=== PATIENT | female | born 1965 | race Caucasian/White ===

== ENCOUNTER 2017-09-16 05:58 | Day surgery (SDC) | payer OTHER ==
[2017-09-15 12:51] VITALS: BMI 28.8
[2017-09-16] MEDS ORDERED: Fentanyl 100 MCG/2 ML VIAL ONE ×5 (06:33→12:03)
[2017-09-16] MEDS ORDERED: Midazolam HCl 2 mg/2 ml Vial ONE ×2 (06:33→07:39)
[2017-09-16] MEDS ORDERED: Promethazine HCl 25 MG/ML VIAL ONE (06:34)
[2017-09-16] MEDS ORDERED: Bupivacaine/Epinephrine 0.25% 30 ML VIAL ONE (06:42)
[2017-09-16] MEDS ORDERED: Ondansetron HCl/PF 4 MG/2 ML Vial ONE (06:49)
[2017-09-16] MEDS ORDERED: PROPOFOL 40 ML ONE (06:49)
[2017-09-16] MEDS ORDERED: CEFAZOLIN/Water 2 GM/20 ML SYRINGE ONE (07:01)
--- NOTE | 2017-09-16 10:27 | OP ---
PREOPERATIVE DIAGNOSIS: Bilateral inguinal hernia. SURGEON: Rufus Vivas M.D. PROCEDURE PERFORMED: Laparoscopic robotic-assisted bilateral inguinal hernia repair with mesh. INDICATIONS: This is a 52-year-old female, who had a CT scan for upper abdominal pain was noted to h ave bilateral inguinal hernias. She developed pain and an increased swelling in her right groin, whi ch was reduced, but then it recurred. She kept having severe pain and difficulty in reducing this he rnia. FINDINGS: Bilateral inguinal hernias. PROCEDURE IN DETAIL: After informed consent was obtained, the patient was taken to the operating truong m and given general endotracheal anesthesia. She was placed in the supine position. Her abdomen was prepped and draped in usual fashion. Local anesthesia infiltrated subcutaneously and deep and a 12- mm incision was performed just above the umbilicus. The fascia grasped and incised. Digital palpati on revealed no local adhesions. A blunt 10-12-mm mm trocar inserted. Pneumoperitoneum was created t o a pressure of 15 mmHg. A 30-degree laparoscope inserted under direct vision. Two 8 mm ports were placed bilateral just lateral to the rectus muscle at the level of the first incision. Then, the pat ient placed in Trendelenburg position and the robot was docked and I went to the console, started on the right. The median umbilical ligament was divided and then the peritoneum incised sharply. A sub peritoneal plane was developed using blunt and sharp dissection. The hernia was reduced. She actual ly had both an indirect and a direct inguinal hernia. Then the left side was approached. Again, the peritoneum was opened from median umbilical ligament laterally and again she had both a direct and i ndirect hernia that was reduced. On the right side, a large contour mesh was inserted and placed in its pocket, and on the left, a medium contour mesh was inserted and placed in its pocket. A 2-0 silk sutures used to secure the mesh to the pubic tubercle medially on both sides and then laterally on b oth sides. The needles were removed. Then, after hemostasis was assured, the peritoneum was closed using a running 3-0 V-Loc from lateral to medial bilateral. The repairs inspected. There was no ble eding. No evidence of complication. The abdomen decompressed. The fascia closed with interrupted 2 -0 Vicryl suture. Skin closed with interrupted 4-0 Rapide. Dermabond applied. The patient tolerate d the procedure well and was transferred to recovery in good condition. Sponge and needle count veri fied correct x2.
[2017-09-16] MEDS ORDERED: HYDROcodone/Acetaminophen 5/325 mg Tablet ONE (12:22)
== END 2017-09-16 14:30 | disposition home or self-care (01) ==
LOC: SDC 05:58
PROVIDERS: ATTEND Surgery
PROC: 0YUA4JZ Supplement Bilateral Inguinal Region with Synthetic Substitute, Percutaneous Endoscopic Approach (ICD-10-PCS; principal; 2017-09-16)
DX: K40.20 Bilateral inguinal hernia, without obstruction or gangrene, not specified as recurrent (principal); Z88.1 Allergy status to other antibiotic agents; Z88.8 Allergy status to other drugs, medicaments and biological substances; Z91.048 Other nonmedicinal substance allergy status
CPT/HCPCS: C1781; J2250; J2405; J2550; J2704; J3010

== ENCOUNTER 2018-01-11 08:08 | Outpatient (CLI) | payer OTHER | END 2018-01-11 08:09 | disposition home or self-care (01) | LOC: BICCT 08:08 | PROVIDERS: ATTEND Internal Medicine | DX: R10.33 Periumbilical pain (principal); R14.0 Abdominal distension (gaseous); R93.3 Abnormal findings on diagnostic imaging of other parts of digestive tract; K31.89 Other diseases of stomach and duodenum | CPT/HCPCS: 74176 ==

== ENCOUNTER 2018-02-28 09:11 | Outpatient (CLI) | payer OTHER ==
[2018-02-28] MEDS ORDERED: Gadobenate Dimeglumine 529 MG/1 ML (20ML VIAL) ONE (10:10)
--- NOTE | 2018-02-28 13:25 | MRI ---
MRI ABDOMEN WITH AND WITHOUT IV CONTRAST: INDICATIONS: History of central abdominal pain with an abnormality seen involving the pancreas on prior CT evaluat ion. COMPARISON: CT evaluation dated 09/13/2017, from [facility], and a CT of the abdomen and pelvi s without contrast, dated 01/11/2018, from [facility]. TECHNIQUE: Multiplanar, multisequence MR images were obtained of the abdomen, with and without contrast, utilizi ng a pancreatic mass protocol, and 15 mL of MultiHance was utilized for the examination. FINDINGS: No focal pancreatic head mass is grossly evident. The main pancreatic duct and common bile duct are normal. There is an 8 mm T2 hyperintense, mildly enhancing lesion involving segment 7 of the right h epatic lobe, on image 9 of series 12 and image 2016 of series 14, consistent with a small hemangioma. There are small, subcentimeter cysts within the right kidney. The adrenal glands and left kidney a re normal appearing. The spleen is normal appearing. No free fluid is evident. No pathologically e nlarged lymph nodes are evident. No definite bone marrow signal abnormality is evident. There is a laparoscopic gastric band in place. IMPRESSION: 1. No focal pancreatic lesion identified. 2. Small hemangioma within segment 7 of the right hepatic lobe. 3. Right renal cysts. POS: TPC
== END 2018-02-28 09:12 | disposition home or self-care (01) ==
LOC: BICMRI 09:11
PROVIDERS: ATTEND Internal Medicine
DX: R93.3 Abnormal findings on diagnostic imaging of other parts of digestive tract (principal); N28.1 Cyst of kidney, acquired; D18.03 Hemangioma of intra-abdominal structures
CPT/HCPCS: 74183; A9579

== ENCOUNTER 2018-12-01 15:15 | Inpatient (IN) | payer OTHER ==
[~2018-12-01 15:15] MED LIST: ISOVUE-370 76%-LOCM 1 ML ONE; Lidocaine 1% PF 5 ML VIAL ONE; Ondansetron PF 4 MG/2 ML Vial ONE; PHENYLEPHRINE-NS 100 MCG/ML 10 ML SYRINGE ONE; Rocuronium Bromide 10 MG/ML (10ML VIAL) ONE; Succinylcholine Chloride 20 MG/ML 10 ml SYRINGE FS ONE
[2018-12-01] MEDS ORDERED: Meropenem 2 GM in Sodium Chloride 0.9% 100 ML IVPB SCH (16:00)
[2018-12-01] MEDS ORDERED: Morphine 4 MG/ML VIAL ONE (16:00)
[2018-12-01] MEDS ORDERED: Enoxaparin Sodium 100 MG/ML SYRINGE ONE (16:33)
--- NOTE | 2018-12-01 17:03 | CT ---
CT OF THE ABDOMEN AND PELVIS WITH IV CONTRAST: 12/01/18 INDICATION: History of abdominal pain, known thrombus in the aorta. COMPARISON: Prior MR of the abdomen dated 02/28/18. FINDINGS: There are multiple wedge-like infarcts involving the spleen. There is limited opacification of the segmental branches of the distal SMA, best seen on coronal imag es 51 and 52. There are numerous loops of mid to distal jejunum and proximal ileum that are dilated a nd appear hypoperfused. There is no woo evidence of pneumatosis. No mesenteric edema is grossly jovan dent. There is a small eccentric mural thrombus in the infrarenal abdominal aorta. No free air is no marilyn. There is postsurgical changes of a gastric bypass. There is small bilateral pleural effusions and bib asilar atelectasis. There is mild nonspecific intrahepatic biliary ductal dilatation. Pancreas, adrenal gland and left ki dney are normal appearing. There are small subcentimeter right renal cysts. There is a new small hypodensity within segment 6 of the right hepatic lobe that cannot be further ch aracterized measuring 1.2 cm. No definite acute osseous abnormality is evident. IMPRESSION: 1. Findings of occlusive thrombus seen within segmental branches of the SMA with numerous loops of mid to distal jejunum and proximal ileal small bowel demonstrating hypoperfusion and mild dilatati on. No woo pneumatosis is grossly evident. 2. Multiple wedge-like areas of diminished opacification involving the spleen suspicious for mul tiple splenic infarcts. 3. Small eccentric intraluminal thrombus involving the infrarenal abdominal aorta on image 46 of series 2 without significant hemodynamically significant stenosis. 4. Mild bibasilar atelectasis and small bilateral pleural effusions. 5. Mild intrahepatic biliary ductal dilatation is nonspecific. 6. Hypodensity involving the right hepatic lobe, incompletely evaluated on the current exam. Thi s was not definitely seen on a comparison MRI dated 02/28/18. This is new from this prior examination. Findings may reflect intervally developed liver infarct or liver cyst. Continued follow-up is recomm ended. 7. Findings were called to Dr. Meade and Dr. Gilliam at 4:45 p.m. on 12/01/18. Code CR POS:
[2018-12-01] MEDS ORDERED: Fentanyl 100 MCG/2 ML VIAL ONE (17:42)
[2018-12-01] MEDS ORDERED: HYDROmorphone 2 MG/ML VIAL ONE (17:42)
[2018-12-01] MEDS ORDERED: Bupivacaine HCl 0.5%/Epinephrine 1:200,000/PF 30 ml Vial ONE (17:53)
[2018-12-01] MEDS ORDERED: Norepinephrine 4 MG/4 ML VIAL ONE (18:00)
[2018-12-01] MEDS ORDERED: Phenylephrine HCL 10 MG/ML VIAL ONE (18:00)
--- NOTE | 2018-12-01 18:46 | HP ---
REASON FOR CONSULT: Abdominal pain. HISTORY: Ms. Mckeon is a 53-year-old woman, transferred from [facility] for severe abdominal pain and aortic thrombus and splenic infarct. She states that she started having nausea, vomiting, and diarrhea fairly suddenly last night around 6 p.m. She describes the diarrhea as explosive, but it was not bloody or melenic. She had nausea, vomiting, and diarrhea throughout the night, and then this morning around 6 a.m. had sudden onset of severe abdominal pain mostly across the upper abdomen. No focal point, but severe and unrelenting. She went to her local emergency room and a CT scan was done, which showed the above mentioned findings, and she was transferred to [place] for further care. She continues to have severe abdominal pain despite multiple doses of pain medication and IV fluids. She did receive Zosyn in [facility] and has received meropenem here. She has no previous history of heart problems, arrhythmias, DVT, PE, or other hypercoagulable problems. She is hypothyroid and has hypertension, but is otherwise healthy. Nothing has relieved her pain. No recent nausea, vomiting, or diarrhea. OUTPATIENT MEDICATIONS: Include; 1. Lisinopril 5 mg p.o. daily. 2. She also takes two medications for thyroid medication. She is unsure which of the following three she takes. Either levothyroxine 100 mcg daily, Cytomel 5 mcg b.i.d., or liothyronine 5 mcg daily. PAST MEDICAL HISTORY: Hypothyroidism and hypertension. Also, history of anemia. PAST SURGICAL HISTORY: Lap gastric band by Dr. Vivas, right inguinal hernia repair, left shoulder surgery, open appendectomy many years ago, many years ago, vaginal hysterectomy and unilateral salpingo-oophorectomy. The patient states she only had one ovary with concurrent rectocele repair about 10 years ago. FAMILY HISTORY: Hypertension. SOCIAL HISTORY: She does not smoke, drink, or use illicit drugs. ALLERGIES: SHE REPORTS ADVERSE DRUG REACTIONS TO CIPRO, WHICH CAUSES NAUSEA AND VOMITING. PREDNISONE, WHICH CAUSES FLUSHING AND TORADOL, WHICH CAUSES NAUSEA AND VOMITING. PHYSICAL EXAMINATION: VITAL SIGNS: Temperature in the emergency room was 102.2, heart rate 117, blood pressure 189/111, breathing 36 times per minute, and saturating 95% on room air. Currently, she is 98.9, heart rate 117, blood pressure 162/103, respiratory rate 34, and 98% saturated. GENERAL: Reveals a flushed, ill-appearing woman, in obvious pain. NECK: Supple without lymphadenopathy or thyroid nodules. HEART: Tachycardic, but regular. I do not appreciate any murmurs, rubs, or gallops. LUNGS: Clear to auscultation bilaterally, but she has difficulty taking deep breaths because of pain in the abdomen. ABDOMEN: Diffusely tender, but she does not exhibit rigidity, rebound, or guarding. No palpable masses or hernias. Multiple healed surgical incisions. EXTREMITIES: Warm and well perfused without edema. Pedal pulses are normal. NEUROLOGIC: No focal deficits. PSYCHIATRIC: Alert, oriented, and appropriate, although in obvious pain and anxiety. DIAGNOSTIC DATA: Repeat CT was done in our ER with IV contrast and this showed the aforementioned abnormalities as well as multiple areas of her small bowel, which appeared hypoperfused. 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 She received 90 mg of Lovenox in the emergency room at 0440 hours due to the suspicion of mesenteric ischemia and has also received IV antibiotics. I have recommended laparoscopic possible open exploration and possible bowel resection if nonviable bowel is encountered. If the bowel appears potentially viable, then a second-look operation is planned tomorrow. If part of the bowel is removed, then again, a second-look operation will be performed. I discussed the patient's diagnosis and recommended treatment with her and her . They understand that full anticoagulation is necessary due to the underlying problem causing the ischemia, even though this increases her risk of bleeding during surgery. They understand the need for second-look surgery due to the evolving nature of this disease. Other risks are just a standard risks of laparoscopic and open surgery and bowel resection. These include, but are not limited to, bleeding, infection, risks of anesthesia, damage to nearby structures, anastomotic leak, and need for other procedures. I do not anticipate that an ostomy would be necessary, but this is also possible if colon involvement is found. The source of her thromboembolism has yet to be identified. Thus, Medicine has been consulted to assist with this process. She will also need a hypercoagulable workup, although she will likely require long-term, possibly lifelong anticoagulation given the severity of her thromboembolic disease even if the hypercoagulable workup is negative. Job ID: [id number]
[2018-12-01] MEDS ORDERED: Sodium Chloride 0.9% 20 ML ONE (18:48)
[2018-12-01] MEDS: Propofol 1,000 MG/100 ML VIAL IV PRN (20:30)
[2018-12-01 20:37] LABS: Actual Bicarbonate (HCO3a) 19.2 mEq/L (22-28); Base Excess (BEa) -6.6 mEq/L (-2.0 to +3.0); CO2 Tension 39.6 mmHg (35.0-45.0); Carboxyhemoglobin (COHb) 1.2 gm% (0.0-3.0); Hemoglobin (Hb) 12.9 g/dL (12.0-16.0); O2 Tension (PaO2) 85.5 mmHg (80.0-100.0); Potassium - ABG Lab 3.02 mmol/L (3.70-5.30)
[2018-12-01 20:38] LABS: Puncture Site ALINE
[2018-12-01] MEDS ORDERED: Sodium Chloride 0.9% 1,000 ML IV SCH (20:51)
[2018-12-01] MEDS ORDERED: Sodium Chloride 0.9% (PF) 10 ML VIAL FS PRN (21:05)
[2018-12-01] MEDS ORDERED: DISCONTINUE PREVIOUS NARCOTIC PAIN MEDICATIONS AND BENZODIAZEPINES FS SCH (21:07)
[2018-12-01] MEDS ORDERED: Propofol BOLUS 1,000 MG/100 ML VIAL IV PRN (21:07)
[2018-12-01] MEDS ORDERED: Lorazepam 2 MG/ML VIAL SLOW IVP PRN (21:07)
[2018-12-01] MEDS ORDERED: Fentanyl BOLUS 250 ML IVPB PRN (21:07)
[2018-12-01] MEDS ORDERED: Pantoprazole 40 MG VIAL IVP SCH (21:15)
[2018-12-01 21:19] LABS: Hemoglobin 13.1 g/dL (12.0-16.0); Mean Corpuscular HGB CONC 30.9 g/dL (32.0-36.0); Mean Corpuscular Hemoglobin 26.7 pg (27.0-31.0); Mean Corpuscular Volume 86.3 fL (78.0-98.0); Mean Platelet Volume 8.8 fL (7.4-10.4); Platelet Count 196 thou/uL (130-400); RBC Distribution Width 15.5 % (11.5-14.5); Red Blood Cell (RBC) Count 4.91 mill/uL (4.20-5.40); White Blood Cell (WBC) Count 20.8 thou/uL (4.8-10.8)
[2018-12-01] MEDS: fentaNYL Citrate/PF 2,000 MCG in Sodium Chloride 0.9% 60 ML IV SCH (21:28)
[2018-12-01 21:30] LABS: Band 40 % (5-11); Lymphocytes 7 % (21-51); MDiff Complete? YES; Monocytes 5 % (0-10); Neutrophil 48 % (42-75); Platelet Morphology Comment Appears Adequate
--- NOTE | 2018-12-01 21:30 | RAD ---
Exam: Chest one view HISTORY:Intubation Comparison: None FINDINGS: Lungs: Patchy right basilar density Cardiac silhouette:Accentuated by portable technique Pulmonary vessels: Central prominence Pleural Spaces: Mild right pleural fluid Pneumothorax: None Left subclavian venous catheter terminates at SVC region. Endotracheal tube terminates at the thoraci c inlet. Enteric catheter traverses left abdomen, below [id number]. Osseous abnormalities: None of acuity. IMPRESSION: Right basilar density indicative of pleural fluid with adjacent atelectasis and/or pneumo nile. Supportive lines and tubes, as above.
[2018-12-01 21:33] LABS: Anion Gap 9 mmol/L (10-20); BUN (Urea Nitrogen) 16 mg/dL (9.8-20.1); Calc. Creatinine Clearance 148 mL/min (70-130); Calcium 7.1 mg/dL (7.8-10.44); Carbon Dioxide 19 mmol/L (22-29); Chloride 114 mmol/L (98-107); Estimated GFR-MDRD Greater than 90; Glucose 112 mg/dL (70-105); Potassium 3.3 mmol/L (3.5-5.1); Sodium 139 mmol/L (136-145)
[2018-12-01] MEDS: MEROPENEM 1 GM/50 ML 1 GM in Premix Bag 1 BAG IVPB SCH (21:40)
[2018-12-01] MEDS: Sodium Chloride 0.9% 1,000 ML IV SCH (21:50)
[2018-12-02 00:13] LABS: INR-International Normal Ratio 1.4; PTT 41.5 SEC (22.9-36.1); Prothrombin Time 16.7 SEC (12.0-14.7)
[2018-12-02 00:21] LABS: D-Dimer Test 3.74 *mcg/mL (0.27-0.43)
[2018-12-02 00:26] LABS: Complement-C4 19.9 mg/dL (15-57)
[2018-12-02] MEDS ORDERED: CCU Electrolyte Replacement 1 EACH FS SCH (00:42)
[2018-12-02] MEDS ORDERED: Potassium Chloride 40 MEQ in Sodium Chloride 0.9% 250 ML 250 ML IVPB PRN (00:43)
[2018-12-02] MEDS ORDERED: PHOS-NAK 1 PKT PACK PO PRN ×2 (00:43)
[2018-12-02] MEDS ORDERED: Magnesium Oxide 400 MG TAB PO PRN ×2 (00:43)
[2018-12-02] MEDS ORDERED: Potassium Phosphate 12 MMOL in Sodium Chloride 0.9% 250 ML 250 ML IV PRN (00:43)
[2018-12-02] MEDS ORDERED: CCU ELECTROLYTE REPLACEMENT PROTOCOL FS PRN (00:43)
[2018-12-02] MEDS ORDERED: Potassium Chloride 20 MEQ TAB PO PRN (00:43)
[2018-12-02] MEDS ORDERED: Potassium Phosphate 9 MMOL in Sodium Chloride 0.9% 100 ML IVPB PRN (00:43)
[2018-12-02] MEDS ORDERED: Potassium Phosphate 15 MMOL in Sodium Chloride 0.9% 250 ML 250 ML IV PRN (00:43)
[2018-12-02] MEDS ORDERED: Magnesium 2 GM/50 ML 2 GM in Premix Bag 1 BAG IVPB PRN (00:43)
[2018-12-02] MEDS ORDERED: Sodium Chloride 0.9% 1,000 ML IV SCH (00:45)
[2018-12-02] MEDS: Sodium Chloride 0.9% 1,000 ML IV SCH ×4 (01:03→20:52)
[2018-12-02] MEDS: Acetaminophen 1,000 MG in Premix Bag 1 BAG IVPB PRN ×2 (01:03→17:12)
[2018-12-02] MEDS: Potassium Chloride 40 MEQ in Premix Bag 1 BAG IVPB PRN (01:08)
[2018-12-02 01:44] LABS: Band 41 % (5-11); Hemoglobin 11.5 g/dL (12.0-16.0); Lymphocytes 11 % (21-51); MDiff Complete? YES; Mean Corpuscular HGB CONC 31.3 g/dL (32.0-36.0); Mean Corpuscular Hemoglobin 27.3 pg (27.0-31.0); Mean Corpuscular Volume 87.1 fL (78.0-98.0); Mean Platelet Volume 8.9 fL (7.4-10.4); Monocytes 5 % (0-10); Neutrophil 43 % (42-75); Platelet Count 175 thou/uL (130-400); Platelet Morphology Comment Appears Adequate; RBC Distribution Width 15.4 % (11.5-14.5); Red Blood Cell (RBC) Count 4.23 mill/uL (4.20-5.40); White Blood Cell (WBC) Count 19.6 thou/uL (4.8-10.8)
[2018-12-02 01:47] VITALS: BMI 29.5
[2018-12-02 01:48] LABS: ALT (SGPT) 93 U/L (8-55); AST (SGOT) 83 U/L (5-34); Albumin 2.3 g/dL (3.5-5.0); Alkaline Phosphatase 57 U/L (40-150); Anion Gap 8 mmol/L (10-20); BUN (Urea Nitrogen) 16 mg/dL (9.8-20.1); Bilirubin, Total 0.7 mg/dL (0.2-1.2); Calc. Creatinine Clearance 137 mL/min (70-130); Calcium 6.4 mg/dL (7.8-10.44); Carbon Dioxide 19 mmol/L (22-29); Chloride 116 mmol/L (98-107); Estimated GFR-MDRD 89; Globulin 1.7 g/dL (2.4-3.5); Glucose 106 mg/dL (70-105); Potassium 3.3 mmol/L (3.5-5.1); Sodium 140 mmol/L (136-145)
[2018-12-02] MEDS ORDERED: Albumin 25% 25 GM/100 ML BOT IVPB SCH (02:27)
--- NOTE | 2018-12-02 03:55 | HP ---
CHIEF COMPLAINT: Abdominal pain, nausea, and vomiting. HISTORY OF PRESENT ILLNESS: Most of the HPI is obtained from the chart since the patient is currently intubated. The patient is a 53-year-old female with no significant really past medical history, who presents to the [facility] initially with complaints of sudden onset of abdominal pain and also nausea and vomiting. The patient initially came to [facility] [place] and also was found to be febrile and hypertensive on arrival. At this time, IV antibiotics were started. She was given Tylenol, and also underwent a CT of abdomen and pelvis, which indicated a splenic infarct and dilated small bowel loops in the lower abdominal and pelvic area, and an intra-aortic thrombus was also noted. At this time, the patient was transferred to our hospital for further evaluation. REVIEW OF SYSTEMS: Unable to obtain. However, per notation, the patient has denied any diarrhea, however, denies any hematemesis either or hematochezia, but did indicate abdominal pain. Denies any appetite change PAST MEDICAL HISTORY: She has a history of anemia and hypertension. PAST SURGICAL HISTORY: She has had a lap gastric band, hernia repair, left shoulder surgery, appendectomy, and a . SOCIAL HISTORY: Per notes, no alcohol use, drug use. She appears to be probably a full code. Lives with her . ALLERGIES: SHE HAS ALLERGIES TO CIPRO, PREDNISONE, AND TORADOL. MEDICATIONS: She is currently on lisinopril. Her past medications in 2018 indicated use of contraceptive. PHYSICAL EXAMINATION: VITAL SIGNS: Are as of the following; temperature of 98.8, heart rate of 116 currently, blood pressure 106/62, respirations 16, 100% currently on ventilation. GENERAL: She is currently intubated on sedation. HEENT: Normocephalic, atraumatic. No lymphadenopathy noted. Pupils are equal and reactive to light. CV: S1 and S2 present. No murmurs, rubs, or gallops. She appears to be sinus tach. LUNGS: Clear upon auscultation. No rhonchi or wheezes noted. ABDOMEN: Soft. Bowel sounds are present x2. She does have a mid abdominal scar which is currently dressed. EXTREMITIES: Lower extremities, no edema. Pedal pulses are present x2. NEUROVASCULAR: Unable to perform the exam as the patient is currently intubated and sedated. SKIN: No cuts, lesions, or bruises noted. LABORATORY RESULTS: WBCs initially were 20.8, hemoglobin of 13.1, hematocrit of 42.4, platelets were 196. She had bands of 40. Chemistry; sodium of 139, potassium of 3.3, BUN of 16, creatinine 0.64. Her bicarb was 19. CT abdomen and pelvis indicated findings of occlusive thrombus seen in the segment branches of the SMA with numerous loops of mid to distal jejunum and proximal ileum, small bowel demonstrated hyperperfusion and mild dilation. No woo pneumatosis is seen, multiple wedge-like areas of diminished opacification involving the spleen suspicions for multiple splenic infarcts, small eccentric intraluminal thrombus involving the infrarenal abdominal aorta was noted, mild intrahepatic biliary duct dilation was noted, hypodense involving the right hepatic lobe. ASSESSMENT AND PLAN: The patient is a 53-year-old female who presents to the hospital with abdominal pain. 1. Abdominal pain, most likely secondary to possible either thromboembolic event or hypercoagulable event. The patient was taken to Surgery for possible mesenteric ischemia. She is currently intubated. We will check a hypercoagulable workup. We will also check a JAK2 mutation. Unclear if patient is on any contraceptives. Malignancy is also in the differential. I will also consult Hematology Oncology for further assistance in regard to this thromboembolic workup. No family around currently to ask more history in terms of the patient ever has been diagnosed with this before. 2. Leukocytosis with bandemia. We will start the patient on broad-spectrum antibiotics and continue to monitor. 3. Electrolyte abnormalities. We will replace the potassium. 4. Mild hypotensive, this just could be secondary to volume depletion. We will give another L of normal saline if needed. We will give patient albumin and continue to monitor. 5. Deep venous thrombosis prophylaxis. The patient is currently on full dose of Lovenox for her thromboembolic disease, which we will continue. Job ID: [id number]
[2018-12-02] MEDS: MEROPENEM 1 GM/50 ML 1 GM in Premix Bag 1 BAG IVPB SCH ×3 (05:00→20:52)
[2018-12-02] MEDS: Propofol 1,000 MG/100 ML VIAL IV PRN ×2 (05:05→12:40)
[2018-12-02 05:33] LABS: Band 32 % (5-11); Elliptocytes SLIGHT = 2-5 cells (100X) (0-1/hpf); Lymphocytes 16 % (21-51); MDiff Complete? YES; Mean Corpuscular HGB CONC 30.8 g/dL (32.0-36.0); Mean Corpuscular Hemoglobin 26.9 pg (27.0-31.0); Mean Corpuscular Volume 87.2 fL (78.0-98.0); Mean Platelet Volume 8.9 fL (7.4-10.4); Metamyelocyte 5 % (0-0); Monocytes 7 % (0-10); Neutrophil 40 % (42-75); Platelet Count 172 thou/uL (130-400); Platelet Morphology Comment Appears Adequate; RBC Distribution Width 15.6 % (11.5-14.5); Red Blood Cell (RBC) Count 4.11 mill/uL (4.20-5.40); White Blood Cell (WBC) Count 16.2 thou/uL (4.8-10.8)
[2018-12-02 05:34] LABS: Anion Gap 9 mmol/L (10-20); BUN (Urea Nitrogen) 16 mg/dL (9.8-20.1); Calc. Creatinine Clearance 146 mL/min (70-130); Calcium 6.7 mg/dL (7.8-10.44); Carbon Dioxide 20 mmol/L (22-29); Chloride 116 mmol/L (98-107); Estimated GFR-MDRD Greater than 90; Glucose 88 mg/dL (70-105); Sodium 141 mmol/L (136-145)
--- NOTE | 2018-12-02 07:06 | PDOC.OP ---
Operative Note - Operative Note Operative Note: PROCEDURE: [facility] hand-assisted abdominal exploration and small bowel resection SURGEON: Lovely Gilliam M.D. DATE: 12/01/2018 PREOPERATIVE DIAGNOSIS: Mesenteric ischemia POSTOPERATIVE DIAGNOSIS: Mesenteric ischemia HISTORY: 53-year-old woman who presented to her local emergency room with severe sudden onset of abdominal pain and was found to have evidence of thromboembolic disease and splenic infarcts. Repeat CT showed evidence of worsening ischemia of the small intestine and recommendation was made to proceed to the operating room for exploration and possible small bowel resection. FINDINGS: Nonviable-appearing distal jejunum and proximal ileum with patchy areas of ischemia proximal and distal to this. Evidence of ischemia of the distal duodenum and proximal jejunum but potentially viable. No obvious ischemia of the colon or stomach. PROCEDURE IN DETAIL: After informed consent was obtained and appropriate broad- spectrum antibiotics and therapeutic anticoagulation were administered the patient was taken to the operating room she was placed in supine position and general anesthesia was administered. Arterial line and central venous catheter were placed by anesthesia for intraoperative and postoperative monitoring and resuscitation and she was prepped and draped in standard sterile fashion. Local anesthesia was infused the skin and subcutaneous tissues at the level of the umbilicus and a skin incision made. The fascia was elevated and a Veress needle placed into the abdominal cavity without difficulty. Opening pressure was less than 5 and carbon dioxide gas easily insufflated to an intra-abdominal pressure of 15 which the patient tolerated well. was withdrawn and a [place] port advanced into the abdominal cavity under direct laparoscopic vision. There is no evidence of Veress needle or of trocar injury. There was no bloody fluid in the abdominal cavity. Most of the bowel was obscured by omentum. The patient' s gastric band was noted and the stomach appeared normal. Dissecting trochars were placed in the right and left lateral positions under direct laparoscopic vision and the omentum drawn superiorly. The patient was found to have a long segment of grossly abnormal appearing small bowel which was dark purple in appearance and aperistaltic. The bowel proximal and distal to those segments appeared pink and normal with some areas of patchy ischemia. The decision was made to place a hand port to better examine the bowel and possibly resect the nonviable appearing segment. The umbilical trocar was removed and a 6 cm periumbilical incision made. Dissection was carried down to the fascia which was incised under direct vision and a GelPort placed. The small bowel was carefully examined and run from the ileocecal valve to the ligament of Treitz. The distal ileum appeared normal but the proximal ileum and distal jejunum appeared nonviable. Again this was a deep dusky purple in color and there were no pulses palpable in the mesentery. The mesenteric veins draining this segment of bowel also appeared thrombosed so was felt that even if flow was restored to the segment of bowel it would not recover. The mid and proximal jejunum appeared normal up until the most proximal jejunum near the ligament of Treitz. This appeared somewhat dusky in appearance although not as severe as the other segment of bowel. The distal duodenum also appeared dusky although the proximal duodenum and stomach appeared normal and pink. It was felt this segment was potentially viable although certainly ischemic. The cecum and ascending colon transverse colon and descending colon and sigmoid colon appeared viable. The liver appeared normal and the spleen was dark in appearance with some sparing of the inferior pole. The nonviable appearing segment of small bowel was externalized through the wound protector and a PATY stapler placed proximal and distal to this segment. The mesentery was divided using LigaSure device and the specimen was passed from the field. Due to the patient's critically ill status and questionable areas of viability of the bowel proximal and distal to the resected segments and also in the distal duodenum and proximal jejunum, no anastomosis was performed as a second look operation was planned. Hemostasis was verified and the abdominal cavity and irrigated with warm saline to clear. The laparoscopic trochars were removed and hemostasis verified. The wound protector was removed and omentum drawn down over the small intestine. The skin was closed with running 2-0 nylon suture and the patient was taken intubated to the CCU for further resuscitation. Estimated blood loss was minimal. There were no complications. Specimen is distal jejunum and proximal ileum.
[2018-12-02 07:19] LABS: Actual Bicarbonate (HCO3a) 19.7 mEq/L (22-28); Base Excess (BEa) -5.4 mEq/L (-2.0 to +3.0); CO2 Tension 36.8 mmHg (35.0-45.0); Calcium, Ionized 0.97 mmol/L (1.12-1.30); Hemoglobin (Hb) 11.5 g/dL (12.0-16.0); O2 Tension (PaO2) 115.4 mmHg (80.0-100.0); Potassium - ABG Lab 3.84 mmol/L (3.70-5.30); pH, Arterial 7.35 (7.35-7.45)
[2018-12-02 07:21] LABS: Puncture Site LINE
[2018-12-02] MEDS: Enoxaparin Sodium 100 MG/ML SYRINGE SC SCH ×2 (09:34→20:28)
[2018-12-02] MEDS: Pantoprazole 40 MG VIAL IVP SCH (09:35)
--- NOTE | 2018-12-02 10:45 | CON ---
DATE OF CONSULTATION: 12/02/2018 CONSULTING PHYSICIAN: Dr. Gilliam. REASON FOR CONSULTATION: Critical care management. Following encompassed 35 minutes of critical care time. HISTORY OF PRESENT ILLNESS: This is a 53-year-old female, who came to the emergency room in transfer from [facility] yesterday. She developed severe abdominal pain. She was diagnosed with a splenic infarct and an aortic thrombus. She apparently had ischemic bowel in her jejunum and ileum. She may have some ischemia more proximal in her jejunum towards the duodenum and she has been left intubated overnight in preparation for going back for second look in the operating room on Tuesday. She is currently awake, on mechanical ventilation and has had no hemodynamic compromise overnight. PAST MEDICAL HISTORY: 1. Hypothyroidism. 2. Hypertension. 3. Anemia. PAST SURGICAL HISTORY: 1. Lap-band. 2. Right inguinal hernia repair. 3. Left shoulder surgery. 4. Appendectomy. 5. . 6. Vaginal hysterectomy. 7. Unilateral salpingo-oophorectomy. 8. Rectocele repair. FAMILY HISTORY: Remarkable for hypertension. SOCIAL HISTORY: Nonsmoker. Does not consume alcohol. Does not use illicit drugs. ALLERGIES: CIPRO, PREDNISONE, AND TORADOL. MEDICATIONS: Prior to admission; 1. Lisinopril. 2. Levothyroxine. REVIEW OF SYSTEMS: Cannot be obtained as the patient is currently on mechanical ventilation. PHYSICAL EXAMINATION: VITAL SIGNS: Pulse 105, blood pressure 118/73, O2 saturation 100%, respiratory rate 16, and CVP 11. GENERAL: She is awake, on mechanical ventilation. She is in no distress. HEENT: She is intubated orally with 7.0 endotracheal tube. NECK: Without adenopathy or JVD. LUNGS: Clear without wheezing or rhonchi. CARDIAC: S1-S2, regular without audible murmur. ABDOMEN: Midline surgical dressing noted. Otherwise, mildly tender to palpation. EXTREMITIES: No clubbing, cyanosis, or edema. Peripheral pulses 2+/4 in lower extremities. IMAGING STUDIES: Chest x-ray shows probably a small right pleural effusion. She has a left subclavian catheter coursing across the midline into the superior vena cava. Heart size looks normal. Endotracheal tube placement is good. LABORATORY DATA: PH is 7.35, pCO2 of 36, pO2 of 115 on SIMV rate 14, tidal volume 500, PEEP 5, pressure support 10, and FiO2 of 35%. White blood cell count 16, hematocrit 35.8, and platelet count 172. Sodium 141, potassium 4, chloride 116, CO2 of 20, BUN 16, creatinine 0.6, and glucose 88. ASSESSMENT: 1. The patient is currently intubated in preparation to go back to the OR tomorrow. 2. Mesenteric ischemia. PLAN: 1. Continue anticoagulation. 2. Continue mechanical ventilation. 3. I reviewed her orders and I think current management is entirely appropriate. I will be happy to follow with you. Hopefully, we can extubate tomorrow after surgery. Job ID: [id number]
[2018-12-02] MEDS: fentaNYL Citrate/PF 2,000 MCG in Sodium Chloride 0.9% 60 ML IV SCH (13:09)
--- NOTE | 2018-12-02 13:58 | PDOC.PN ---
- Subjective Encounter Start Date: 12/02/18 Encounter Start Time: 10:20 Pt seen for followup re: mesenteric ischemia. Pt intubated, not answering questions, could not complete ROS. - Objective Resuscitation Status - Order Detail: 12/01/18 23:37 Resuscitation Status Routine Resuscitation Status: FULL: Full Resuscitation MAR Reviewed: Yes Vital Signs & Weight: Vital Signs (12 hours) Temp Pulse Resp Pulse Ox 12/02/18 13:37 109 H 12/02/18 10:50 105 H 12/02/18 10:00 16 12/02/18 08:00 100 F H 15 100 12/02/18 07:08 103 H 12/02/18 04:00 99.5 F 14 12/02/18 03:48 111 H Weight Admit Weight 205 lb 7.533 oz Weight 205 lb 7.533 oz Most Recent Monitor Data Heart Rate from ECG 106 NIBP 111/70 NIBP BP-Mean 83 Respiration from ECG 17 SpO2 100 I&O: 12/01/18 12/02/18 12/03/18 06:59 06:59 06:59 Intake Total 3060.7 Output Total 1620 920 Balance 1440.7 -920 Result Diagrams: 12/02/18 04:58 12/02/18 04:58 EKG Reviewed by me: Yes (tele: sinus tachycardia) Phys Exam - Physical Examination Constitutional: NAD HEENT: moist MMs Respiratory: clear to auscultation bilateral S1, S2, tachy, reg Gastrointestinal: soft dressings present Neurological: moves all 4 limbs Deviation from normal: Unable to assess Dx/Plan (1) Mesenteric ischemia Code(s): K55.9 - VASCULAR DISORDER OF INTESTINE, UNSPECIFIED Status: Acute Comment: s/p surgery. Pt currently intubated. (2) HTN (hypertension) Code(s): I10 - ESSENTIAL (PRIMARY) HYPERTENSION Status: Chronic Comment: controlled - Plan * . Review of Systems - Medications/Allergies Allergies/Adverse Reactions: Allergies Allergy/AdvReac Type Severity Reaction Status Date / Time adhesive tape Allergy Verified 09/15/17 12:53 amoxicillin [From Augmentin] Allergy Verified 09/15/17 12:53 ciprofloxacin [From Cipro] Allergy Verified 09/15/17 12:53 clavulanic acid Allergy Verified 09/15/17 12:53 [From Augmentin] prednisone Allergy Verified 09/15/17 12:53 Medications: Current Medications Enoxaparin Sodium (Lovenox) 90 mg SC 0900,2100 [facility] Last Admin: 12/02/18 09:34 Dose: 90 mg Sodium Chloride (Normal Saline 0.9%) 1,000 mls @ 150 mls/hr IV .Q6H40M [facility] Last Admin: 12/02/18 13:10 Dose: 1,000 mls Meropenem 1 gm/ Device 50 mls @ 100 mls/hr IVPB Q8HR [facility] Last Admin: 12/02/18 05:00 Dose: 50 mls Fentanyl Citrate 2,000 mcg/ (Sodium Chloride) 100 mls @ 0 mls/hr IV INF [facility]; Protocol Stop: 12/31/18 21:07 Last Admin: 12/02/18 13:09 Dose: 100 mls Fentanyl Citrate (Fentanyl Bolus) 250 mls @ 0 mls/hr IVPB PRN PRN PRN Reason: Breakthrough pain/agitation Stop: 12/31/18 21:07 Acetaminophen 1,000 mg/ Device 100 mls @ 400 mls/hr IVPB Q8H PRN PRN Reason: Fever/Mild Pain Stop: 12/03/18 00:40 Last Admin: 12/02/18 01:03 Dose: 100 mls Potassium Chloride 40 meq/ (Sodium Chloride) 270 mls @ 135 mls/hr IVPB ASDIR PRN PRN Reason: FOR SERUM K+ 2.5 - 3.5 Potassium Chloride 40 meq/ (Device) 100 mls @ 50 mls/hr IVPB ASDIR PRN PRN Reason: FOR SERUM K+ 2.5 - 3.5 Last Admin: 12/02/18 01:08 Dose: 100 mls Magnesium Sulfate 1 gm/ Sodium (Chloride) 102 mls @ 102 mls/hr IV PRN PRN PRN Reason: MAG LEVEL 1.4 - 2.0 Magnesium Sulfate 2 gm/ Device 50 mls @ 50 mls/hr IVPB ASDIR PRN PRN Reason: MAGNESIUM < 1.4 Potassium Phosphate 9 mmol/ (Sodium Chloride) 103 mls @ 25.75 mls/hr IVPB ASDIR PRN PRN Reason: Phosphate 1.0-1.8 Potassium Phosphate 12 mmol/ (Sodium Chloride) 254 mls @ 63.5 mls/hr IV ASDIR PRN PRN Reason: Serum phosphate 0.5-0.9 Potassium Phosphate 15 mmol/ (Sodium Chloride) 255 mls @ 63.75 mls/hr IV ASDIR PRN PRN Reason: Serum Phos < 0.5 Lorazepam (Ativan) 2 mg SLOW IVP Q1H PRN PRN Reason: Breakthrough agitation Stop: 12/31/18 21:07 Magnesium Oxide (Magnesium Oxide) 400 mg PO BIDPRN PRN PRN Reason: FOR SERUM MAG 1.4 - 2.0 Magnesium Oxide (Magnesium Oxide) 800 mg PO PRN PRN PRN Reason: FOR SERUM MAG < 1.4 Miscellaneous Medication (Ccu Electrolyte Replacement) 1 each FS ONE [facility] Stop: 01/01/19 00:43 Miscellaneous Medication (Phos-Nak) 1 pkt PO TIDPRN PRN PRN Reason: FOR PHOS LEVEL 1.0 - 1.8 Miscellaneous Medication (Phos-Nak) 2 pkt PO TIDPRN PRN PRN Reason: FOR PHOS LEVEL 0.5 - 1.0 Morphine Sulfate (Morphine) 2 mg SLOW IVP Q1H PRN PRN Reason: BREAKTHROUGH PAIN/Agitation Stop: 12/31/18 21:07 Discontinue Previous Narcotic Pain Medications And Benzodiazepines 1 each FS .ONE AMIRAH Stop: 12/31/18 21:07 Ccu Electrolyte (Replacement Protocol) 0 each FS PRN PRN PRN Reason: FOR ELECTROLYTE REPLACEMENT Pantoprazole Sodium (Protonix) 40 mg IVP DAILY [facility] Last Admin: 12/02/18 09:35 Dose: 40 mg Potassium Chloride (K-Dur) 40 meq PO ASDIR PRN PRN Reason: FOR SERUM K+ 2.5 - 3.5 Potassium Chloride (Klor-Con) 40 meq PER TUBE ASDIR PRN PRN Reason: FOR SERUM K+ 2.5-3.5 Propofol (Diprivan) 1,000 mg IV INF PRN; Protocol PRN Reason: TO ACHIEVE GOAL RASS Stop: 12/31/18 21:07 Last Admin: 12/02/18 12:40 Dose: 1,000 mg Propofol (Diprivan Bolus) 20 mg IV Q5MIN PRN PRN Reason: BREAKTHROUGH AGITATION Stop: 12/31/18 21:07 Sodium Chloride (Flush - Normal Saline) 10 ml IVF Q12HR [facility] Last Admin: 12/02/18 09:35 Dose: 10 ml Sodium Chloride (Flush - Normal Saline) 10 ml IVF PRN PRN PRN Reason: Saline Flush Sodium Chloride (Normal Saline Pf) 10 ml FS PRN PRN PRN Reason: RECONSTITUTION Last Admin: 12/01/18 21:40 Dose: 10 ml
--- NOTE | 2018-12-02 23:27 | PDOC.GSPN ---
Surgery Progress Note: Subj - Subjective Narrative: Patient is intubated but answering questions he has no. She indicates that her pain has improved. We will keep her sedated until second-look operation tomorrow morning. Continue IV fluids and antibiotics and anticoagulation Surgery Progress Note: Obj - Vital signs Vital signs: Vital Signs - Most Recent Temp Pulse Resp BP Pulse Ox 99.6 F 104 H 14 113/70 100 12/02/18 20:00 12/02/18 22:34 12/02/18 22:00 12/02/18 18:42 12/02/18 08:00 Surgery Progress Note: Results - Labs Result Diagrams: 12/02/18 04:58 12/02/18 04:58 Lab results: Laboratory Results - last 24 hr 12/01/18 18:49 POC Glucose 89
[2018-12-03] MEDS: Propofol 1,000 MG/100 ML VIAL IV PRN (02:23)
[2018-12-03 05:09] LABS: Anion Gap 10 mmol/L (10-20); BUN (Urea Nitrogen) 13 mg/dL (9.8-20.1); Calc. Creatinine Clearance 175 mL/min (70-130); Calcium 7.6 mg/dL (7.8-10.44); Carbon Dioxide 20 mmol/L (22-29); Chloride 114 mmol/L (98-107); Estimated GFR-MDRD Greater than 90; Glucose 78 mg/dL (70-105); Sodium 141 mmol/L (136-145)
[2018-12-03] MEDS: MEROPENEM 1 GM/50 ML 1 GM in Premix Bag 1 BAG IVPB SCH ×3 (05:27→22:18)
[2018-12-03] MEDS: Potassium Chloride 40 MEQ in Premix Bag 1 BAG IVPB PRN (05:27)
[2018-12-03 05:48] LABS: Band 19 % (5-11); Eosinophils 1 % (0-10); Hemoglobin 10.4 g/dL (12.0-16.0); Lymphocytes 14 % (21-51); MDiff Complete? YES; Mean Corpuscular HGB CONC 33.8 g/dL (32.0-36.0); Mean Corpuscular Hemoglobin 29.6 pg (27.0-31.0); Mean Corpuscular Volume 87.6 fL (78.0-98.0); Mean Platelet Volume 8.5 fL (7.4-10.4); Metamyelocyte 1 % (0-0); Monocytes 4 % (0-10); Neutrophil 60 % (42-75); Platelet Count 183 thou/uL (130-400); Platelet Morphology Comment Appears Adequate; RBC Distribution Width 15.3 % (11.5-14.5); RBC Morphology Normal; Reactive Lymphocytes 1 % (0-10); Red Blood Cell (RBC) Count 3.51 mill/uL (4.20-5.40); White Blood Cell (WBC) Count 14.9 thou/uL (4.8-10.8)
[2018-12-03 07:22] LABS: Actual Bicarbonate (HCO3a) 21.9 mEq/L (22-28); Base Excess (BEa) -2.8 mEq/L (-2.0 to +3.0); CO2 Tension 37.5 mmHg (35.0-45.0); Calcium, Ionized 1.09 mmol/L (1.12-1.30); Carboxyhemoglobin (COHb) 0.7 gm% (0.0-3.0); Hemoglobin (Hb) 10.9 g/dL (12.0-16.0); O2 Tension (PaO2) 109.1 mmHg (80.0-100.0); Potassium - ABG Lab 3.35 mmol/L (3.70-5.30); pH, Arterial 7.38 (7.35-7.45)
[2018-12-03 07:25] LABS: ALV-art Gradient 93.575 (0-20); Puncture Site LB
[2018-12-03] MEDS ORDERED: Bupivacaine/Epinephrine 0.25% 30 ML VIAL ONE (07:33)
[2018-12-03] MEDS ORDERED: Fentanyl 100 MCG/2 ML VIAL ONE (07:44)
[2018-12-03] MEDS ORDERED: Phenylephrine HCL 10 MG/ML VIAL ONE (07:45)
[2018-12-03] MEDS: Sodium Chloride 0.9% 1,000 ML IV SCH ×3 (07:55→22:35)
--- NOTE | 2018-12-03 09:12 | RAD ---
CHEST 1 VIEW: Date: 12/03/18 INDICATION: Pneumonia. COMPARISON: Prior exam dated 12/01/18. FINDINGS: The patient is intubated. The ET tube is at the level of the thoracic inlet. Gastric catheter project s beyond the field of view. There are worsening bilateral pleural effusions, right greater than left. There is persistent air space opacity within the right lower lobe. There is left basilar atelectasis in the left lower lobe. Left subclavian central venous catheter is unchanged. No definite pneumothor ax is evident. IMPRESSION: 1. Worsening bilateral pleural effusions with persistent right basilar opacity. 2. Worsening left basilar atelectasis. 3. Tubes and lines as above. POS: BH
[2018-12-03] MEDS ORDERED: Morphine 4 MG/ML VIAL SLOW IVP PRN (10:49)
[2018-12-03] MEDS: Enoxaparin Sodium 100 MG/ML SYRINGE SC SCH ×2 (11:10→21:00)
[2018-12-03] MEDS: Pantoprazole 40 MG VIAL IVP SCH (11:13)
--- NOTE | 2018-12-03 11:39 | PRG ---
DATE OF SERVICE: 12/03/2018 TIME SPENT: 35 minutes of critical care time. SUBJECTIVE: The patient was seen after her reexploration today. She was brought back to the ICU on mechanical ventilation. She was deeply sedated. Apparently, she has been closed up and is clear for extubation from a general surgical standpoint. OBJECTIVE: VITAL SIGNS: Her pulse is 106, blood pressure 161/92, O2 saturation 96%, and temperature 98.3. HEENT: Unremarkable. NECK: No JVD. CHEST: Clear to auscultation. CARDIAC: S1 and S2. Slightly tachycardic. ABDOMEN: Soft and nontender. Surgical dressing noted. EXTREMITIES: No edema. LABORATORY DATA: White blood cell count 14.9, hematocrit 30, platelet count 183. A pH 7.38, pCO2 of 37, pO2 of 109. Sodium 141, potassium 3, chloride 114, CO2 of 20, BUN 13, creatinine 0.5, and glucose 78. IMAGING STUDIES: Chest x-ray shows no obvious abnormalities. ASSESSMENT: 1. Mesenteric ischemia, requiring partial small-bowel resection. 2. Acute respiratory failure, requiring mechanical ventilation. 3. Hypokalemia. PLAN: 1. Wean and extubate. 2. Morphine as needed for pain. 3. Replace potassium. Job ID: [id number]
--- NOTE | 2018-12-03 11:51 | CON ---
DATE OF CONSULTATION: REASON FOR CONSULTATION: Mesenteric thrombosis. HISTORY OF PRESENT ILLNESS: A 53-year-old woman with history of lap gastric band procedure by Dr. 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 The patient is currently intubated and sedated and is down in the OR, so history is obtained from the medical record. The patient was transferred from [facility] where she presented with abdominal pain. She had been having nausea, vomiting, and diarrhea that had started the night of presentation, and the diarrhea was described as explosive, but nonbloody. CT at a local ER showed an aortic thrombus and splenic infarct, and she was transferred to [facility]. CT of the abdomen and pelvis showed occlusive thrombus in the segmental branches of the SMA with numerous loops of mid to distal jejunum and proximal ileal small bowel demonstrating hypoperfusion. Multiple wedge-like areas with diminished opacification involving spleen suspicious for multiple splenic infarcts and a small eccentric intraluminal thrombus involving the infrarenal abdominal aorta. The patient was then evaluated by Dr. Gilliam and taken to the OR for abdominal exploration and small bowel resection. During surgery, Dr. Gilliam found all nonviable appearing distal jejunum and proximal ileum with patchy areas of ischemia proximal and distal to that with evidence of ischemia at the distal duodenum and proximal jejunum, but potentially bile. No obvious ischemia of the colon or stomach. There was nonviable segment of small bowel that was resected and as the patient was critically ill with questionable areas of viability of the bowel, there was no anastomosis performed and she was planned for second-look operation, which is being done today. I was consulted to evaluate her for hypercoagulable state. The patient has been started on Lovenox for anticoagulation. She has had an echocardiogram that shows normal EF and is otherwise unremarkable. REVIEW OF SYSTEMS: Unobtainable as the patient is intubated and sedated. PAST MEDICAL HISTORY: Hypothyroidism, hypertension, morbid obesity. PAST SURGICAL HISTORY: Lap gastric band by Dr. Vivas, right inguinal hernia repair, left shoulder surgery, open appendectomy, , vaginal hysterectomy and unilateral salpingo-oophorectomy. FAMILY HISTORY: Hypertension. SOCIAL HISTORY: As per records, she does not smoke, drink, or use illicit drugs. ALLERGIES: CIPRO, PREDNISONE, TORADOL. PHYSICAL EXAMINATION: VITAL SIGNS: Pulse 116, blood pressure 161/91, saturating 96% on mechanical ventilation, temperature 98.3. GENERAL APPEARANCE: Unable to be obtained as the patient is currently in the ER ; however, as per records, she does have a diffusely tender abdomen and appears ill. LABORATORY DATA: White blood cells 14.9, hemoglobin 10.4, platelets 183. Sodium 141, potassium 3.0, chloride 114, carbon dioxide 20, BUN 13, creatinine 0.54, calcium 7.6, total bilirubin 0.7, AST 83, ALT 93, alkaline phosphatase 57, homocysteine 2.17. C3 and C4 complements are normal. IMAGING DATA: CT abdomen and pelvis with contrast dated, 12/01/2018, shows occlusive thrombus and segmental branches of the SMA and intraluminal thrombus in the infrarenal abdominal aorta and hypoperfusion in the jejunum and ileum. 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 As per history, the patient does not have any predisposing factors for blood clots other than a lap gastric band, which can increase the risk slightly, however I am unsure of the timing. However, given the abnormal location of the blood clot, she does require a hypercoagulable workup, which has already been ordered with a thrombosis panel to look for genetic causes including antiphospholipid syndrome. JAK2 has been sent and I will add on MPL, CALR, and BCR-ABL. We will also send her blood for flow cytometry for CD55 and CD59 to evaluate for PNH. Regardless of the findings, I would agree with Dr. Gilliam that she does require potentially lifelong anticoagulation due to the severity of her blood clots. We will follow up when these test results return; however, they may take 1 to 2 weeks. Given that she is very ill and she is still in the hospital, we will see her here, otherwise she can follow up with me in the outpatient clinic. We will follow with you peripherally. Thank you for this consult. Job ID: [id number] MTDD
[2018-12-03 12:41] LABS: Actual Bicarbonate (HCO3a) 20.8 mEq/L (22-28); Base Excess (BEa) -3.7 mEq/L (-2.0 to +3.0); CO2 Tension 35.4 mmHg (35.0-45.0); Calcium, Ionized 1.07 mmol/L (1.12-1.30); Carboxyhemoglobin (COHb) 0.8 gm% (0.0-3.0); Hemoglobin (Hb) 11.2 g/dL (12.0-16.0); O2 Tension (PaO2) 116.8 mmHg (80.0-100.0); Potassium - ABG Lab 3.24 mmol/L (3.70-5.30); pH, Arterial 7.39 (7.35-7.45)
[2018-12-03 13:10] LABS: Puncture Site RR
[2018-12-03] MEDS: Morphine 2 MG/ML SYRINGE SLOW IVP PRN ×3 (13:18→22:19)
[2018-12-03] MEDS: Labetalol HCl 100 MG/20 ML VIAL SLOW IVP PRN ×2 (13:38→22:19)
[2018-12-03] MEDS: hydrALAZINE 20 MG/ML VIAL SLOW IVP SCH ×2 (13:46→15:38)
[2018-12-03] MEDS: Morphine 4 MG/ML VIAL SLOW IVP PRN ×2 (14:37→20:00)
[2018-12-03] MEDS ORDERED: Ondansetron PF 4 MG/2 ML Vial ONE (15:10)
[2018-12-03] MEDS ORDERED: Rocuronium Bromide 10 MG/ML (10ML VIAL) ONE (15:10)
--- NOTE | 2018-12-03 18:07 | PDOC.OP ---
Operative Note - Operative Note Operative Note: PROCEDURE: Laparoscopic hand-assisted small bowel resection DATE: 12/03/2018 SURGEON: Lovely Gilliam M.D. PULP MAKER: Fernando Ibarra MS 3 PREOPERATIVE DIAGNOSIS: Mesenteric ischemia POSTOPERATIVE DIAGNOSIS: Mesenteric ischemia HISTORY: Patient is a 53-year-old woman who presented to the emergency room with acute severe abdominal pain and was found to have splenic infarct and ischemic small bowel. She underwent diagnostic laparoscopy and laparoscopic hand -assisted small bowel resection Leo evening and returns to the operating room for scheduled second look procedure and re-anastomosis. At the time of her first operation she had patchy areas of ischemia proximal and distal to the resected small bowel segment and ischemic changes to the distal duodenum and proximal jejunum. PROCEDURE IN DETAIL: After informed consent was obtained and appropriate antibiotics and anticoagulation were continued, the patient was taken to the operating room where general anesthesia was administered through her pre- existing endotracheal tube. She was prepped and draped in standard sterile fashion and the skin sutures removed. The abdominal cavity was entered. There was no bilious purulent or foul smelling fluid encountered. The GelPort was placed and carbon dioxide gas insufflated to an initial abdominal pressure of 15 which the patient tolerated well. The laparoscopic trochars were replaced through the previous incisions under direct laparoscopic vision and diagnostic laparoscopy carried out. The proximal jejunum and distal duodenum were pink healthy and normal in appearance. The mesentery was hemostatic at the previous bowel resection site. The bowel proximal to the resection was entirely viable in appearance but there were patchy areas of ischemia in the ileum just distal to the resection which were felt to be possibly full-thickness and at risk for perforation. The decision was made to reanastomose the bowel, excluding this segment of patchy ischemia. The healthy-appearing bowel distal to the area with patchy ischemia was brought up to the jejunum proximal to the anastomosis and secured with an antimesenteric Lembert suture. Enterotomies were created and a [id number] functional end-to-end anastomosis was created with an EEA stapler. The stapler line was examined and hemostasis verified. A second fire of the EEA stapler was then placed across the anastomosis adjacent to the enterotomies, excluding the proximal 6 inches of ileum which had the patchy areas of ischemia. The mesentery to this segment was then resected and the specimen passed from the field. The transverse staple line was then dunked with interrupted Lembert sutures and the angle of michael reinforced with another Lembert suture. The mesenteric defect was closed with a running 3-0 silk suture and the bowel carefully examined and measured from the ileocecal valve to the ligament of Treitz. It appeared entirely viable and there was over 90 inches remaining. The anastomosis was widely patent. The entire colon was examined and no areas of ischemia seen. The stomach and proximal duodenum likewise appeared normal. The gallbladder was somewhat distended but soft and well perfused. The spleen had a patchy appearance consistent with partial infarction. The small intestine was returned to its normal anatomic position and the omentum placed anterior to this. The laparoscopic trochars removed under direct laparoscopic vision and hemostasis verified. Seprafilm was placed beneath the periumbilical incision and the fascia was closed with a running PDS suture with excellent technical result. The subcutaneous tissues were copiously irrigated and the skin was closed with running subcuticular 4-0 Monocryl suture. Dermabond dressings were placed and the patient was taken intubated to the CCU for recovery. Estimated blood loss was minimal. There were no complications. Specimen is segment of ileum.
--- NOTE | 2018-12-03 18:48 | PDOC.PN ---
- Subjective Encounter Start Date: 12/03/18 Encounter Start Time: 15:00 Pt seen for followup re: mesenteric ischemia. Had second surgery today, extubated. Denies chest pain. c/o abdo pain. - Objective Resuscitation Status - Order Detail: 12/01/18 23:37 Resuscitation Status Routine Resuscitation Status: FULL: Full Resuscitation MAR Reviewed: Yes Vital Signs & Weight: Vital Signs (12 hours) Temp Pulse Resp BP Pulse Ox 12/03/18 18:32 95 12/03/18 16:00 97.5 F L 98 12/03/18 15:38 99 174/100 H 12/03/18 13:46 99 181/112 H 12/03/18 13:38 99 181/112 H 12/03/18 12:45 98 12/03/18 12:34 99 168/105 H 12/03/18 10:34 116 H 161/91 H 12/03/18 10:20 28 H 12/03/18 08:00 14 12/03/18 07:44 14 100 12/03/18 07:37 98.3 F 12/03/18 07:12 99 Weight Admit Weight 205 lb 7.533 oz Weight 205 lb 7.533 oz Most Recent Monitor Data Heart Rate from ECG 97 NIBP 155/90 NIBP BP-Mean 111 Respiration from ECG 22 SpO2 98 I&O: 12/02/18 12/03/18 12/04/18 06:59 06:59 06:59 Intake Total 3060.7 4118 1238 Output Total 1620 3510 1055 Balance 1440.7 608 183 Result Diagrams: 12/03/18 04:36 12/03/18 04:36 Additional Labs: Accuchecks 12/01/18 18:49 POC Glucose 89 EKG Reviewed by me: Yes (Tele: sinus tachycardia) Phys Exam - Physical Examination Constitutional: NAD HEENT: moist MMs Neck: supple Respiratory: clear to auscultation bilateral S1, S2, tachy, reg dressings Neurological: moves all 4 limbs Psychiatric: normal affect Dx/Plan (1) Mesenteric ischemia Code(s): K55.9 - VASCULAR DISORDER OF INTESTINE, UNSPECIFIED Status: Acute Comment: s/p surgeryx2, extubated today. On morphine for pain. Also on meropenem. (2) Aortic thrombus Code(s): I74.10 - EMBOLISM AND THROMBOSIS OF UNSPECIFIED PARTS OF AORTA Status : Acute Comment: on therapeutic Lovenox, hypercoagulable workup in progress (3) HTN (hypertension) Code(s): I10 - ESSENTIAL (PRIMARY) HYPERTENSION Status: Chronic Comment: controlled - Plan plan discussed w/ family, continue antibiotics * . On electrolyte replacement protocol (hypokalemia). Replace calcium. Low TSH but normal free T4. Review of Systems - Review of Systems Cardiovascular: negative: chest pain, palpitations, orthopnea, paroxysmal nocturnal dyspnea, edema, light headedness Gastrointestinal: Abdominal Pain. negative: Nausea, Vomiting, Diarrhea, Constipation, Melena, Hematochezia - Medications/Allergies Allergies/Adverse Reactions: Allergies Allergy/AdvReac Type Severity Reaction Status Date / Time adhesive tape Allergy Verified 09/15/17 12:53 amoxicillin [From Augmentin] Allergy Verified 09/15/17 12:53 ciprofloxacin [From Cipro] Allergy Verified 09/15/17 12:53 clavulanic acid Allergy Verified 09/15/17 12:53 [From Augmentin] prednisone Allergy Verified 09/15/17 12:53 Medications: Current Medications Enoxaparin Sodium (Lovenox) 90 mg SC 0900,2100 [facility] Last Admin: 12/03/18 11:10 Dose: Not Given Sodium Chloride (Normal Saline 0.9%) 1,000 mls @ 150 mls/hr IV .Q6H40M [facility] Last Admin: 12/03/18 18:01 Dose: 1,000 mls Meropenem 1 gm/ Device 50 mls @ 100 mls/hr IVPB Q8HR [facility] Last Admin: 12/03/18 14:47 Dose: 50 mls Fentanyl Citrate 2,000 mcg/ (Sodium Chloride) 100 mls @ 0 mls/hr IV INF [facility]; Protocol Stop: 12/31/18 21:07 Last Admin: 12/02/18 13:09 Dose: 100 mls Fentanyl Citrate (Fentanyl Bolus) 250 mls @ 0 mls/hr IVPB PRN PRN PRN Reason: Breakthrough pain/agitation Stop: 12/31/18 21:07 Potassium Chloride 40 meq/ (Sodium Chloride) 270 mls @ 135 mls/hr IVPB ASDIR PRN PRN Reason: FOR SERUM K+ 2.5 - 3.5 Potassium Chloride 40 meq/ (Device) 100 mls @ 50 mls/hr IVPB ASDIR PRN PRN Reason: FOR SERUM K+ 2.5 - 3.5 Last Admin: 12/03/18 05:27 Dose: 100 mls Magnesium Sulfate 1 gm/ Sodium (Chloride) 102 mls @ 102 mls/hr IV PRN PRN PRN Reason: MAG LEVEL 1.4 - 2.0 Magnesium Sulfate 2 gm/ Device 50 mls @ 50 mls/hr IVPB ASDIR PRN PRN Reason: MAGNESIUM < 1.4 Last Admin: 12/03/18 12:17 Dose: 50 mls Potassium Phosphate 9 mmol/ (Sodium Chloride) 103 mls @ 25.75 mls/hr IVPB ASDIR PRN PRN Reason: Phosphate 1.0-1.8 Potassium Phosphate 12 mmol/ (Sodium Chloride) 254 mls @ 63.5 mls/hr IV ASDIR PRN PRN Reason: Serum phosphate 0.5-0.9 Potassium Phosphate 15 mmol/ (Sodium Chloride) 255 mls @ 63.75 mls/hr IV ASDIR PRN PRN Reason: Serum Phos < 0.5 Acetaminophen 1,000 mg/ Device 100 mls @ 400 mls/hr IVPB Q6H PRN PRN Reason: Pain Labetalol HCl (Normodyne) 20 mg SLOW IVP Q2H PRN PRN Reason: SBP GREATER THAN 160 Last Admin: 12/03/18 13:38 Dose: 20 mg Lorazepam (Ativan) 2 mg SLOW IVP Q1H PRN PRN Reason: Breakthrough agitation Stop: 12/31/18 21:07 Last Admin: 12/02/18 14:25 Dose: 2 mg Magnesium Oxide (Magnesium Oxide) 400 mg PO BIDPRN PRN PRN Reason: FOR SERUM MAG 1.4 - 2.0 Magnesium Oxide (Magnesium Oxide) 800 mg PO PRN PRN PRN Reason: FOR SERUM MAG < 1.4 Miscellaneous Medication (Ccu Electrolyte Replacement) 1 each FS ONE AMIRAH Stop: 01/01/19 00:43 Miscellaneous Medication (Phos-Nak) 1 pkt PO TIDPRN PRN PRN Reason: FOR PHOS LEVEL 1.0 - 1.8 Miscellaneous Medication (Phos-Nak) 2 pkt PO TIDPRN PRN PRN Reason: FOR PHOS LEVEL 0.5 - 1.0 Morphine Sulfate (Morphine) 2 mg SLOW IVP Q1H PRN PRN Reason: BREAKTHROUGH PAIN/Agitation Stop: 12/31/18 21:07 Last Admin: 12/03/18 18:01 Dose: 2 mg Morphine Sulfate (Morphine) 4 mg SLOW IVP Q1H PRN PRN Reason: Pain Last Admin: 12/03/18 14:37 Dose: 4 mg Discontinue Previous Narcotic Pain Medications And Benzodiazepines 1 each FS .ONE AMIRAH Stop: 12/31/18 21:07 Ccu Electrolyte (Replacement Protocol) 0 each FS PRN PRN PRN Reason: FOR ELECTROLYTE REPLACEMENT Pantoprazole Sodium (Protonix) 40 mg IVP DAILY [facility] Last Admin: 12/03/18 11:13 Dose: 40 mg Potassium Chloride (K-Dur) 40 meq PO ASDIR PRN PRN Reason: FOR SERUM K+ 2.5 - 3.5 Potassium Chloride (Klor-Con) 40 meq PER TUBE ASDIR PRN PRN Reason: FOR SERUM K+ 2.5-3.5 Propofol (Diprivan) 1,000 mg IV INF PRN; Protocol PRN Reason: TO ACHIEVE GOAL RASS Stop: 12/31/18 21:07 Last Admin: 12/03/18 02:23 Dose: 1,000 mg Propofol (Diprivan Bolus) 20 mg IV Q5MIN PRN PRN Reason: BREAKTHROUGH AGITATION Stop: 12/31/18 21:07 Sodium Chloride (Flush - Normal Saline) 10 ml IVF Q12HR [facility] Last Admin: 12/03/18 11:11 Dose: 10 ml Sodium Chloride (Flush - Normal Saline) 10 ml IVF PRN PRN PRN Reason: Saline Flush Sodium Chloride (Normal Saline Pf) 10 ml FS PRN PRN PRN Reason: RECONSTITUTION Last Admin: 12/01/18 21:40 Dose: 10 ml
[2018-12-03] MEDS ORDERED: Calcium Gluconate 4.6 MEQ in Sodium Chloride 0.9% 100 ML IVPB SCH (19:00)
[2018-12-03] MEDS: Acetaminophen 1,000 MG in Premix Bag 1 BAG IVPB PRN (21:01)
[2018-12-04] MEDS: Morphine 4 MG/ML VIAL SLOW IVP PRN ×2 (00:11→15:01)
[2018-12-04] MEDS: Labetalol HCl 100 MG/20 ML VIAL SLOW IVP PRN ×4 (00:23→16:31)
[2018-12-04] MEDS: Morphine 2 MG/ML SYRINGE SLOW IVP PRN ×5 (03:46→22:15)
[2018-12-04] MEDS: Acetaminophen 1,000 MG in Premix Bag 1 BAG IVPB PRN ×3 (03:49→19:42)
[2018-12-04] MEDS: Sodium Chloride 0.9% 1,000 ML IV SCH ×3 (04:07→17:39)
[2018-12-04 04:14] LABS: #Lymphocytes 1.4 thou/uL (1.20-3.40); #Monocytes 0.9 thou/uL (0.11-0.59); #Neutrophils 11.1 thou/uL (1.40-6.50); %Basophils 0.3 % (0.0-1.0); %Eosinophils 0.1 % (0.0-10.0); %Lymphocytes 10.6 % (21.0-51.0); %Monocytes 6.4 % (0.0-10.0); %Neutrophils 82.6 % (42.0-75.0); Hemoglobin 9.8 g/dL (12.0-16.0); Mean Corpuscular HGB CONC 30.7 g/dL (32.0-36.0); Mean Corpuscular Volume 87.9 fL (78.0-98.0); Mean Platelet Volume 8.3 fL (7.4-10.4); Platelet Count 166 thou/uL (130-400); RBC Distribution Width 15.5 % (11.5-14.5); Red Blood Cell (RBC) Count 3.65 mill/uL (4.20-5.40); White Blood Cell (WBC) Count 13.4 thou/uL (4.8-10.8)
[2018-12-04 04:33] LABS: Anion Gap 10 mmol/L (10-20); BUN (Urea Nitrogen) 10 mg/dL (9.8-20.1); Calc. Creatinine Clearance 193 mL/min (70-130); Carbon Dioxide 23 mmol/L (22-29); Chloride 114 mmol/L (98-107); Estimated GFR-MDRD Greater than 90; Glucose 93 mg/dL (70-105); Sodium 144 mmol/L (136-145)
[2018-12-04] MEDS: Potassium Chloride 40 MEQ in Premix Bag 1 BAG IVPB PRN (05:03)
[2018-12-04] MEDS: MEROPENEM 1 GM/50 ML 1 GM in Premix Bag 1 BAG IVPB SCH ×3 (05:05→22:16)
[2018-12-04] MEDS: Enoxaparin Sodium 100 MG/ML SYRINGE SC SCH ×2 (08:22→20:51)
[2018-12-04] MEDS: Pantoprazole 40 MG VIAL IVP SCH (08:27)
--- NOTE | 2018-12-04 09:54 | PRG ---
DATE OF SERVICE: 12/04/2018 SUBJECTIVE: She is still having some abdominal pain. Otherwise, awake, alert, and in no distress. OBJECTIVE: VITAL SIGNS: Temperature is 97.6, pulse 82, blood pressure 174/97, O2 saturation 97%. HEENT: Unremarkable. NECK: No adenopathy. No JVD. LUNGS: Clear. CARDIAC: S1 and S2. Regular. ABDOMEN: Slightly tender. EXTREMITIES: No clubbing, cyanosis, or edema. LABORATORY DATA: White blood cell count 13.4, hematocrit 32.1, and platelet count 166. Sodium 144, potassium 3, chloride 114, CO2 of 23, BUN 10, creatinine 0.5, glucose 93. ASSESSMENT: 1. Status post partial small-bowel resection for mesenteric ischemia/mesenteric thrombosis. 2. Status post respiratory failure, requiring mechanical ventilation. PLAN: 1. Transfer to surgical floor. 2. Continue anticoagulation. 3. Continue labetalol for blood pressure control until she can take oral medication. 4. Replace potassium. Job ID: [id number]
--- NOTE | 2018-12-04 10:06 | RAD ---
CHEST 1 VIEW: Date: 12/04/18 INDICATION: History of pneumonia. COMPARISON: Prior exam dated 12/03/18. FINDINGS: The patient has been extubated. Gastric catheter is stable. Left subclavian central venous catheter i s stable. Cardiomegaly, pulmonary vascular congestion, and small bilateral pleural effusions with bib asilar air space opacities are stable. IMPRESSION: Interval extubation, but otherwise stable exam. POS: BH
[2018-12-04 11:54] LABS: Reference Lab Name NEO
--- NOTE | 2018-12-04 17:02 | EKG ---
Test Reason : Blood Pressure : / mmHG Vent. Rate : 121 BPM Atrial Rate : 121 BPM P-R Int : 138 ms QRS Dur : 092 ms QT Int : 322 ms P-R-T Axes : 071 063 062 degrees QTc Int : 457 ms Sinus tachycardia Anterior infarct , age undetermined cannot be excluded Abnormal ECG Confirmed by DAVID SCHWARTZ ([id number]) on 12/04/2018 5:02:36 PM Referred By: Confirmed By:DAVID SCHWARTZ
--- NOTE | 2018-12-04 19:12 | PDOC.PN ---
- Subjective Encounter Start Date: 12/04/18 Encounter Start Time: 11:20 Pt seen for followup re:mesenteric ischemia. c/o abdo pain, feels thirsty. - Objective Resuscitation Status - Order Detail: 12/01/18 23:37 Resuscitation Status Routine Resuscitation Status: FULL: Full Resuscitation MAR Reviewed: Yes Vital Signs & Weight: Vital Signs (12 hours) Temp Pulse Resp BP BP Pulse Ox 12/04/18 16:36 79 154/94 H 12/04/18 16:31 91 169/106 H 12/04/18 16:22 98.2 F 91 14 169/106 H 93 L 12/04/18 09:06 98.2 F 81 20 156/94 H 93 L 12/04/18 08:02 83 166/99 H 12/04/18 08:00 98.2 F 94 L 12/04/18 07:37 96 Weight Admit Weight 205 lb 7.533 oz Weight 205 lb 7.533 oz Most Recent Monitor Data Heart Rate from ECG 78 NIBP 150/102 NIBP BP-Mean 118 Respiration from ECG 19 SpO2 96 I&O: 12/03/18 12/04/18 12/05/18 06:59 06:59 06:59 Intake Total 4118 3489 1940 Output Total 3510 3245 1155 Balance 608 244 785 Result Diagrams: 12/04/18 03:55 12/04/18 03:30 Additional Labs: Labs reviewed by me Phys Exam - Physical Examination Constitutional: NAD HEENT: moist MMs Neck: supple Respiratory: clear to auscultation bilateral Cardiovascular: RRR Gastrointestinal: positive bowel sounds dressings Neurological: moves all 4 limbs Psychiatric: normal affect Dx/Plan (1) Mesenteric ischemia Code(s): K55.9 - VASCULAR DISORDER OF INTESTINE, UNSPECIFIED Status: Acute Comment: s/p surgeryx2, on morphine for pain. (2) Aortic thrombus Code(s): I74.10 - EMBOLISM AND THROMBOSIS OF UNSPECIFIED PARTS OF AORTA Status : Acute Comment: on therapeutic Lovenox, hypercoagulable workup in progress. Oncology following. (3) HTN (hypertension) Code(s): I10 - ESSENTIAL (PRIMARY) HYPERTENSION Status: Chronic Comment: Pt has PRN IV labetalol for blood pressure spikes. - Plan * . Review of Systems - Review of Systems Constitutional: negative: fever, chills, sweats, weakness, malaise Cardiovascular: negative: chest pain, palpitations, orthopnea, paroxysmal nocturnal dyspnea, edema, light headedness Gastrointestinal: Abdominal Pain - Medications/Allergies Allergies/Adverse Reactions: Allergies Allergy/AdvReac Type Severity Reaction Status Date / Time adhesive tape Allergy Verified 09/15/17 12:53 amoxicillin [From Augmentin] Allergy Verified 09/15/17 12:53 ciprofloxacin [From Cipro] Allergy Verified 09/15/17 12:53 clavulanic acid Allergy Verified 09/15/17 12:53 [From Augmentin] prednisone Allergy Verified 09/15/17 12:53 Medications: Current Medications Enoxaparin Sodium (Lovenox) 90 mg SC 0900,2100 [facility] Last Admin: 12/04/18 08:22 Dose: 90 mg Sodium Chloride (Normal Saline 0.9%) 1,000 mls @ 150 mls/hr IV .[id number] [facility] Last Admin: 12/04/18 17:39 Dose: 1,000 mls Meropenem 1 gm/ Device 50 mls @ 100 mls/hr IVPB Q8HR [facility] Last Admin: 12/04/18 13:18 Dose: 50 mls Fentanyl Citrate (Fentanyl Bolus) 250 mls @ 0 mls/hr IVPB PRN PRN PRN Reason: Breakthrough pain/agitation Stop: 12/31/18 21:07 Potassium Chloride 40 meq/ (Sodium Chloride) 270 mls @ 135 mls/hr IVPB ASDIR PRN PRN Reason: FOR SERUM K+ 2.5 - 3.5 Potassium Chloride 40 meq/ (Device) 100 mls @ 50 mls/hr IVPB ASDIR PRN PRN Reason: FOR SERUM K+ 2.5 - 3.5 Last Admin: 12/04/18 05:03 Dose: 100 mls Magnesium Sulfate 1 gm/ Sodium (Chloride) 102 mls @ 102 mls/hr IV PRN PRN PRN Reason: MAG LEVEL 1.4 - 2.0 Magnesium Sulfate 2 gm/ Device 50 mls @ 50 mls/hr IVPB ASDIR PRN PRN Reason: MAGNESIUM < 1.4 Last Admin: 12/03/18 12:17 Dose: 50 mls Potassium Phosphate 9 mmol/ (Sodium Chloride) 103 mls @ 25.75 mls/hr IVPB ASDIR PRN PRN Reason: Phosphate 1.0-1.8 Potassium Phosphate 12 mmol/ (Sodium Chloride) 254 mls @ 63.5 mls/hr IV ASDIR PRN PRN Reason: Serum phosphate 0.5-0.9 Potassium Phosphate 15 mmol/ (Sodium Chloride) 255 mls @ 63.75 mls/hr IV ASDIR PRN PRN Reason: Serum Phos < 0.5 Acetaminophen 1,000 mg/ Device 100 mls @ 400 mls/hr IVPB Q6H PRN PRN Reason: Pain Last Admin: 12/04/18 10:51 Dose: 100 mls Labetalol HCl (Normodyne) 20 mg SLOW IVP Q2H PRN PRN Reason: SBP GREATER THAN 160 Last Admin: 12/04/18 16:31 Dose: 20 mg Magnesium Oxide (Magnesium Oxide) 400 mg PO BIDPRN PRN PRN Reason: FOR SERUM MAG 1.4 - 2.0 Magnesium Oxide (Magnesium Oxide) 800 mg PO PRN PRN PRN Reason: FOR SERUM MAG < 1.4 Miscellaneous Medication (Ccu Electrolyte Replacement) 1 each FS ONE [facility] Stop: 01/01/19 00:43 Miscellaneous Medication (Phos-Nak) 1 pkt PO TIDPRN PRN PRN Reason: FOR PHOS LEVEL 1.0 - 1.8 Miscellaneous Medication (Phos-Nak) 2 pkt PO TIDPRN PRN PRN Reason: FOR PHOS LEVEL 0.5 - 1.0 Morphine Sulfate (Morphine) 2 mg SLOW IVP Q1H PRN PRN Reason: BREAKTHROUGH PAIN/Agitation Stop: 12/31/18 21:07 Last Admin: 12/04/18 17:36 Dose: 2 mg Morphine Sulfate (Morphine) 4 mg SLOW IVP Q1H PRN PRN Reason: Pain Last Admin: 12/04/18 15:01 Dose: 4 mg Discontinue Previous Narcotic Pain Medications And Benzodiazepines 1 each FS .ONE [facility] Stop: 12/31/18 21:07 Ccu Electrolyte (Replacement Protocol) 0 each FS PRN PRN PRN Reason: FOR ELECTROLYTE REPLACEMENT Pantoprazole Sodium (Protonix) 40 mg IVP DAILY [facility] Last Admin: 12/04/18 08:27 Dose: 40 mg Potassium Chloride (K-Dur) 40 meq PO ASDIR PRN PRN Reason: FOR SERUM K+ 2.5 - 3.5 Potassium Chloride (Klor-Con) 40 meq PER TUBE ASDIR PRN PRN Reason: FOR SERUM K+ 2.5-3.5 Sodium Chloride (Flush - Normal Saline) 10 ml IVF Q12HR [facility] Last Admin: 12/04/18 08:04 Dose: 10 ml Sodium Chloride (Flush - Normal Saline) 10 ml IVF PRN PRN PRN Reason: Saline Flush Sodium Chloride (Normal Saline Pf) 10 ml FS PRN PRN PRN Reason: RECONSTITUTION Last Admin: 12/01/18 21:40 Dose: 10 ml
--- NOTE | 2018-12-04 19:57 | PDOC.GSPN ---
Surgery Progress Note: Subj - Subjective Narrative: Patient continues to slowly improve but has had trouble sleeping. She requests something to help her with this tonight. Her abdominal pain is tolerable. She has not passed gas yet she is not nauseated or distended. NG output has been scant and very light green in color. She has been eating ice chips. Incisions look good. Bowel sounds are hypoactive. Labs are stable. 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 She is recovering without evidence of further embolic events. She is fully anticoagulated on Lovenox. I'm going to clamp her NG and check residuals. If this is low we will discontinue the NG. I' m letting her start sips of clears and encouraged ambulation. Overall she is doing well. Surgery Progress Note: Obj - Vital signs Vital signs: Vital Signs - Most Recent Temp Pulse Resp BP Pulse Ox 98.2 F 79 14 154/94 H 93 L 12/04/18 16:22 12/04/18 16:36 12/04/18 16:22 12/04/18 16:36 12/04/18 16:22 Surgery Progress Note: Results - Labs Result Diagrams: 12/04/18 03:55 12/04/18 03:30
[2018-12-04] MEDS: traZODone HCl 50 MG TAB PO PRN (20:51)
[2018-12-05] MEDS: Morphine 2 MG/ML SYRINGE SLOW IVP PRN ×7 (00:14→20:34)
[2018-12-05] MEDS: Sodium Chloride 0.9% 1,000 ML IV SCH ×4 (03:59→20:42)
[2018-12-05] MEDS: Morphine 4 MG/ML VIAL SLOW IVP PRN ×4 (03:59→23:33)
[2018-12-05] MEDS: MEROPENEM 1 GM/50 ML 1 GM in Premix Bag 1 BAG IVPB SCH (05:14)
[2018-12-05 05:43] LABS: #Eosinphils 0.1 thou/uL (0.0-0.7); #Lymphocytes 1.8 thou/uL (1.20-3.40); #Monocytes 0.8 thou/uL (0.11-0.59); #Neutrophils 7.8 thou/uL (1.40-6.50); %Basophils 0.1 % (0.0-1.0); %Eosinophils 0.5 % (0.0-10.0); %Lymphocytes 17.2 % (21.0-51.0); %Monocytes 7.7 % (0.0-10.0); %Neutrophils 74.4 % (42.0-75.0); Hemoglobin 8.8 g/dL (12.0-16.0); Mean Corpuscular Hemoglobin 26.7 pg (27.0-31.0); Mean Corpuscular Volume 86.3 fL (78.0-98.0); Mean Platelet Volume 8.2 fL (7.4-10.4); Platelet Count 169 thou/uL (130-400); RBC Distribution Width 15.2 % (11.5-14.5); White Blood Cell (WBC) Count 10.5 thou/uL (4.8-10.8)
[2018-12-05 05:58] LABS: Anion Gap 8 mmol/L (10-20); BUN (Urea Nitrogen) 8 mg/dL (9.8-20.1); Calc. Creatinine Clearance 225 mL/min (70-130); Calcium 7.4 mg/dL (7.8-10.44); Carbon Dioxide 24 mmol/L (22-29); Chloride 109 mmol/L (98-107); Estimated GFR-MDRD Greater than 90; Glucose 98 mg/dL (70-105); Sodium 138 mmol/L (136-145)
[2018-12-05] MEDS: Enoxaparin Sodium 100 MG/ML SYRINGE SC SCH ×2 (08:13→20:34)
[2018-12-05] MEDS: Pantoprazole 40 MG VIAL IVP SCH (08:14)
[2018-12-05] MEDS: Potassium Chloride 10 MEQ in Premix Bag 1 BAG IVPB SCH ×2 (10:13→18:07)
[2018-12-05] MEDS ORDERED: Acetaminophen 650 MG Suppository PR PRN (10:32)
[2018-12-05] MEDS ORDERED: Acetaminophen 1,000 MG in Premix Bag 1 BAG IVPB SCH (10:40)
[2018-12-05 11:18] LABS: Cardiolipin IgA Ab 3.1 APL-U/mL (<14 Negative); Cardiolipin IgG Ab 1.7 GPL-U/mL (<10 Negative); Cardiolipin IgM Ab 1.7 MPL-U/mL (<10 Negative); EliA APS New Method **** NEW METHOD ****
[2018-12-05] MEDS ORDERED: Acetaminophen 500 MG TAB PO PRN ×2 (13:52)
[2018-12-05] MEDS ORDERED: traMADol HCl 50 MG TAB PO PRN (13:52)
[2018-12-05] MEDS: Labetalol HCl 100 MG/20 ML VIAL SLOW IVP PRN ×2 (15:07→20:33)
[2018-12-05] MEDS: hydrALAZINE 20 MG/ML VIAL SLOW IVP PRN ×2 (16:45→23:34)
[2018-12-05] MEDS: Ondansetron PF 4 MG/2 ML Vial IVP PRN (18:01)
--- NOTE | 2018-12-05 18:18 | PDOC.PN ---
- Subjective Encounter Start Date: 12/05/18 Encounter Start Time: 09:40 Pt seen for followup re: mesenteric ischemia. c/o nausea and ongoing abdo pain. Also had diarrhea. - Objective Resuscitation Status - Order Detail: 12/01/18 23:37 Resuscitation Status Routine Resuscitation Status: FULL: Full Resuscitation MAR Reviewed: Yes Vital Signs & Weight: Vital Signs (12 hours) Temp Pulse Resp BP BP Pulse Ox 12/05/18 16:45 53 L 176/102 H 12/05/18 15:55 53 L 176/102 H 12/05/18 15:23 98.3 F 62 18 170/94 H 94 L 12/05/18 15:07 66 170/94 H 12/05/18 11:35 98.3 F 63 16 153/98 H 94 L 12/05/18 08:10 95 12/05/18 07:31 98.7 F 76 16 159/95 H 95 Weight Admit Weight 205 lb 7.533 oz Weight 205 lb 7.533 oz Most Recent Monitor Data Heart Rate from ECG 78 NIBP 150/102 NIBP BP-Mean 118 Respiration from ECG 19 SpO2 96 I&O: 12/04/18 12/05/18 12/06/18 06:59 06:59 06:59 Intake Total 3489 3940 Output Total 3245 2205 Balance 244 1735 Result Diagrams: 12/06/18 05:11 12/05/18 05:15 Additional Labs: Labs reviewed by me Phys Exam - Physical Examination Constitutional: NAD HEENT: moist MMs Neck: supple Respiratory: clear to auscultation bilateral Cardiovascular: RRR Gastrointestinal: soft Neurological: moves all 4 limbs Psychiatric: normal affect Dx/Plan (1) Mesenteric ischemia Code(s): K55.9 - VASCULAR DISORDER OF INTESTINE, UNSPECIFIED Status: Acute Comment: Continue morphine for pain, pt had surgery x 2 (2) Aortic thrombus Code(s): I74.10 - EMBOLISM AND THROMBOSIS OF UNSPECIFIED PARTS OF AORTA Status : Acute Comment: continue therapeutic Lovenox (3) Hypokalemia Code(s): E87.6 - HYPOKALEMIA Status: Acute Comment: replace potassium (4) HTN (hypertension) Code(s): I10 - ESSENTIAL (PRIMARY) HYPERTENSION Status: Chronic Comment: Pt has blood pressure spikes. Already on PRN IV labetalol, add PRN IV hydralazine. Will start oral lisinopril 5 mg daily(home medication) - Plan * . r/o clostridium difficile Review of Systems - Review of Systems Cardiovascular: negative: chest pain, palpitations, orthopnea, paroxysmal nocturnal dyspnea, edema, light headedness Gastrointestinal: Nausea, Abdominal Pain, Diarrhea. negative: Vomiting, Constipation, Melena, Hematochezia - Medications/Allergies Allergies/Adverse Reactions: Allergies Allergy/AdvReac Type Severity Reaction Status Date / Time adhesive tape Allergy Verified 09/15/17 12:53 amoxicillin [From Augmentin] Allergy Verified 09/15/17 12:53 ciprofloxacin [From Cipro] Allergy Verified 09/15/17 12:53 clavulanic acid Allergy Verified 09/15/17 12:53 [From Augmentin] prednisone Allergy Verified 09/15/17 12:53 Medications: Current Medications Acetaminophen (Tylenol) 980 mg MA Q6H PRN PRN Reason: Pain Acetaminophen (Tylenol) 1,000 mg PO Q6H PRN PRN Reason: Moderate to Severe Pain (6-10) Acetaminophen (Tylenol) 500 mg PO Q6H PRN PRN Reason: Pain 1-5 Enoxaparin Sodium (Lovenox) 90 mg SC 0900,2100 [facility] Last Admin: 12/05/18 08:13 Dose: 90 mg Hydralazine HCl (Apresoline) 10 mg SLOW IVP Q6H PRN PRN Reason: SBP >160 Last Admin: 12/05/18 16:45 Dose: 10 mg Fentanyl Citrate (Fentanyl Bolus) 250 mls @ 0 mls/hr IVPB PRN PRN PRN Reason: Breakthrough pain/agitation Stop: 12/31/18 21:07 Potassium Chloride 10 meq/ (Device) 100 mls @ 100 mls/hr IVPB 1000,1800 [facility] Stop: 12/05/18 18:59 Last Admin: 12/05/18 18:07 Dose: 100 mls Sodium Chloride (Normal Saline 0.9%) 1,000 mls @ 75 mls/hr IV .[id number] [facility] Last Admin: 12/05/18 15:04 Dose: 1,000 mls Labetalol HCl (Normodyne) 20 mg SLOW IVP Q2H PRN PRN Reason: SBP GREATER THAN 160 Last Admin: 12/05/18 15:07 Dose: 20 mg Melatonin (Melatonin) 3 mg PO HS PRN PRN Reason: Insomnia Miscellaneous Medication (Ccu Electrolyte Replacement) 1 each FS ONE [facility] Stop: 01/01/19 00:43 Morphine Sulfate (Morphine) 2 mg SLOW IVP Q1H PRN PRN Reason: BREAKTHROUGH PAIN/Agitation Stop: 12/31/18 21:07 Last Admin: 12/05/18 18:00 Dose: 2 mg Morphine Sulfate (Morphine) 4 mg SLOW IVP Q1H PRN PRN Reason: Pain Last Admin: 12/05/18 08:14 Dose: 4 mg Discontinue Previous Narcotic Pain Medications And Benzodiazepines 1 each FS .ONE [facility] Stop: 12/31/18 21:07 Ccu Electrolyte (Replacement Protocol) 0 each FS PRN PRN PRN Reason: FOR ELECTROLYTE REPLACEMENT Ondansetron HCl (Zofran) 4 mg IVP Q6H PRN PRN Reason: Nausea/Vomiting Last Admin: 12/05/18 18:01 Dose: 4 mg Pantoprazole Sodium (Protonix) 40 mg IVP DAILY [facility] Last Admin: 12/05/18 08:14 Dose: 40 mg Sodium Chloride (Flush - Normal Saline) 10 ml IVF Q12HR [facility] Last Admin: 12/05/18 08:14 Dose: 10 ml Sodium Chloride (Flush - Normal Saline) 10 ml IVF PRN PRN PRN Reason: Saline Flush Sodium Chloride (Normal Saline Pf) 10 ml FS PRN PRN PRN Reason: RECONSTITUTION Last Admin: 12/01/18 21:40 Dose: 10 ml Tramadol HCl (Ultram) 50 mg PO Q4H PRN PRN Reason: Pain Trazodone HCl (Desyrel) 50 mg PO HS PRN PRN Reason: Insomnia Last Admin: 12/04/18 20:51 Dose: 50 mg
[2018-12-05 18:54] LABS: Troponin I 0.022 ng/mL (< 0.028)
[2018-12-05] MEDS: traMADol HCl 50 MG TAB PO PRN (20:35)
[2018-12-05] MEDS: traZODone HCl 50 MG TAB PO PRN (21:38)
[2018-12-05 23:01] LABS: Troponin I 0.018 ng/mL (< 0.028)
[2018-12-06 06:25] LABS: #Basophils 0.1 thou/uL (0.0-0.2); #Eosinphils 0.1 thou/uL (0.0-0.7); #Monocytes 1.2 thou/uL (0.11-0.59); #Neutrophils 8.7 thou/uL (1.40-6.50); %Basophils 0.4 % (0.0-1.0); %Eosinophils 0.7 % (0.0-10.0); %Lymphocytes 16.8 % (21.0-51.0); %Monocytes 10.3 % (0.0-10.0); %Neutrophils 71.8 % (42.0-75.0); Hemoglobin 9.6 g/dL (12.0-16.0); Mean Corpuscular HGB CONC 31.2 g/dL (32.0-36.0); Mean Corpuscular Hemoglobin 26.8 pg (27.0-31.0); Mean Corpuscular Volume 85.9 fL (78.0-98.0); Mean Platelet Volume 8.6 fL (7.4-10.4); Platelet Count 196 thou/uL (130-400); RBC Distribution Width 15.3 % (11.5-14.5); Red Blood Cell (RBC) Count 3.57 mill/uL (4.20-5.40); White Blood Cell (WBC) Count 12.1 thou/uL (4.8-10.8)
--- NOTE | 2018-12-06 08:14 | PRG ---
DATE OF SERVICE: 12/05/2018 SUBJECTIVE: Ms. Mckeon was able to sleep somewhat last night, although she was repeatedly awakened by abdominal pain. She then had a fair amount of diarrhea this morning, but this was nonbloody. She had cramps associated with this, which has since improved. She states that morphine has not really helped with her pain and causes her to hallucinate and has been much more helpful. When I saw her, she had just returned to the bed due to some nausea, but the nausea resolved as soon as she laid down. She has not had any further diarrhea and her abdominal pain has abated. I think the diarrhea is likely just due to the coli of her bowel ischemia and poor absorption, possibly combined with the perioperative antibiotics, which I . I do not think that it is a sign of ongoing ischemia since her pain has improved and there was no blood. We will simply be cautious in advancing her diet. I have written for oral pain medications and Tylenol since her has and she does not like the way that morphine makes her feel. Her abdominal exam is benign and her incisions look good. Job ID: [id number]
[2018-12-06] MEDS: Pantoprazole 40 MG VIAL IVP SCH (08:15)
[2018-12-06] MEDS: Enoxaparin Sodium 100 MG/ML SYRINGE SC SCH ×2 (08:17→21:07)
[2018-12-06] MEDS ORDERED: Lisinopril 5 MG TAB PO SCH (09:00)
[2018-12-06 10:53] LABS: Factor VIII Test 352.4 % ACTIVE (56-157)
[2018-12-06] MEDS: Ondansetron PF 4 MG/2 ML Vial IVP PRN ×2 (11:02→21:09)
[2018-12-06] MEDS: hydrALAZINE 20 MG/ML VIAL SLOW IVP PRN ×2 (11:04→21:08)
[2018-12-06] MEDS: Morphine 4 MG/ML VIAL SLOW IVP PRN ×4 (11:33→21:43)
[2018-12-06] MEDS: traMADol HCl 50 MG TAB PO PRN ×2 (11:53→21:07)
[2018-12-06 11:56] LABS: Protein C Activity 53 % (78-152)
--- NOTE | 2018-12-06 12:17 | EKG ---
Test Reason : STAT Blood Pressure : / mmHG Vent. Rate : 070 BPM Atrial Rate : 070 BPM P-R Int : 132 ms QRS Dur : 094 ms QT Int : 404 ms P-R-T Axes : 064 049 055 degrees QTc Int : 436 ms Normal sinus rhythm Normal ECG Confirmed by DR. Arlet WEBB ([id number]) on 12/06/2018 12:17:03 PM Referred By: SHAMIKA Confirmed By:DR. Arlet WEBB
--- NOTE | 2018-12-06 12:29 | EKG ---
Test Reason : Blood Pressure : / mmHG Vent. Rate : 074 BPM Atrial Rate : 074 BPM P-R Int : 138 ms QRS Dur : 102 ms QT Int : 420 ms P-R-T Axes : 065 056 060 degrees QTc Int : 466 ms Normal sinus rhythm Normal ECG When compared with ECG of 05-DEC-2018 18:02, (Unconfirmed) No significant change was found Confirmed by DR. Arlet WEBB ([id number]) on 12/06/2018 12:28:52 PM Referred By: SHANNAN Confirmed By:DR. Arlet WEBB
[2018-12-06] MEDS: Labetalol HCl 100 MG/20 ML VIAL SLOW IVP PRN (13:14)
[2018-12-06 13:20] LABS: Actual Bicarbonate (HCO3a) 16.8 mEq/L (22-28); Analyzer IN Cardio OR; Base Excess (BEa) -8.1 mEq/L (-2.0 to +3.0); CO2 Tension 32.7 mmHg (35.0-45.0); Calcium, Ionized 1.04 mmol/L (1.12-1.30); Carboxyhemoglobin (COHb) 0.6 gm% (0.0-3.0); O2 Tension (PaO2) 450.3 mmHg (80.0-100.0); Potassium - ABG Lab 3.39 mmol/L (3.70-5.30); pH, Arterial 7.33 (7.35-7.45)
[2018-12-06 13:21] LABS: Puncture Site ALINE
[2018-12-06 14:44] LABS: Anion Gap 7 mmol/L (10-20); BUN (Urea Nitrogen) 5 mg/dL (9.8-20.1); Calc. Creatinine Clearance 215 mL/min (70-130); Carbon Dioxide 27 mmol/L (22-29); Chloride 109 mmol/L (98-107); Estimated GFR-MDRD Greater than 90; Glucose 99 mg/dL (70-105); Sodium 140 mmol/L (136-145)
[2018-12-06 14:47] LABS: Potassium 2.9 mmol/L (3.5-5.1)
--- NOTE | 2018-12-06 14:53 | PDOC.PN ---
- Subjective Encounter Start Date: 12/06/18 Encounter Start Time: 14:52 Pt seen for followup re: hypokalemia. Abdo pain better. Tolerating fluid diet. Slept better. - Objective Resuscitation Status - Order Detail: 12/01/18 23:37 Resuscitation Status Routine Resuscitation Status: FULL: Full Resuscitation MAR Reviewed: Yes Vital Signs & Weight: Vital Signs (12 hours) Temp Pulse Resp BP BP Pulse Ox 12/06/18 13:14 76 171/93 H 12/06/18 11:09 98.2 F 70 18 165/95 H 95 12/06/18 11:04 76 168/105 H 12/06/18 08:17 67 166/98 H 12/06/18 07:27 97.7 F 67 14 166/98 H 94 L 12/06/18 03:24 98.1 F 68 18 161/94 H 97 Weight Admit Weight 205 lb 7.533 oz Weight 205 lb 7.533 oz Most Recent Monitor Data Heart Rate from ECG 78 NIBP 150/102 NIBP BP-Mean 118 Respiration from ECG 19 SpO2 96 I&O: 12/05/18 12/06/18 12/07/18 06:59 06:59 06:59 Intake Total 3940 1860 Output Total 2205 1875 Balance 1735 -15 Result Diagrams: 12/06/18 05:11 12/06/18 13:49 Additional Labs: Labs reviewed by me Phys Exam - Physical Examination Constitutional: NAD HEENT: moist MMs Neck: supple Respiratory: clear to auscultation bilateral Cardiovascular: irregular Gastrointestinal: soft, positive bowel sounds dressings Neurological: moves all 4 limbs Psychiatric: normal affect Dx/Plan (1) Hypokalemia Code(s): E87.6 - HYPOKALEMIA Status: Acute Comment: replace potassium (2) Mesenteric ischemia Code(s): K55.9 - VASCULAR DISORDER OF INTESTINE, UNSPECIFIED Status: Acute Comment: Improving, s/p surgery x2 (3) Aortic thrombus Code(s): I74.10 - EMBOLISM AND THROMBOSIS OF UNSPECIFIED PARTS OF AORTA Status : Acute Comment: continue therapeutic Lovenox (4) HTN (hypertension) Code(s): I10 - ESSENTIAL (PRIMARY) HYPERTENSION Status: Chronic Comment: Lisinopril increased to 5mg BID - Plan continue antibiotics, PT/OT, out of bed/ambulate * . C. diff negative, start Florastor and PRN Imodium for diarrhea. Likely antibiotic-associated diarrhea. Check EKG to r/o a. fib Review of Systems - Review of Systems Cardiovascular: negative: chest pain, palpitations, orthopnea, paroxysmal nocturnal dyspnea, edema, light headedness Gastrointestinal: Diarrhea. negative: Nausea, Vomiting, Abdominal Pain, Constipation, Melena, Hematochezia - Medications/Allergies Allergies/Adverse Reactions: Allergies Allergy/AdvReac Type Severity Reaction Status Date / Time adhesive tape Allergy Verified 09/15/17 12:53 amoxicillin [From Augmentin] Allergy Verified 09/15/17 12:53 ciprofloxacin [From Cipro] Allergy Verified 09/15/17 12:53 clavulanic acid Allergy Verified 09/15/17 12:53 [From Augmentin] prednisone Allergy Verified 09/15/17 12:53 Medications: Current Medications Acetaminophen (Tylenol) 980 mg NH Q6H PRN PRN Reason: Pain Acetaminophen (Tylenol) 1,000 mg PO Q6H PRN PRN Reason: Moderate to Severe Pain (6-10) Last Admin: 12/06/18 08:18 Dose: 1,000 mg Acetaminophen (Tylenol) 500 mg PO Q6H PRN PRN Reason: Pain 1-5 Enoxaparin Sodium (Lovenox) 90 mg SC 0900,2100 [facility] Last Admin: 12/06/18 08:17 Dose: 90 mg Hydralazine HCl (Apresoline) 10 mg SLOW IVP Q6H PRN PRN Reason: SBP >160 Last Admin: 12/06/18 11:04 Dose: 10 mg Fentanyl Citrate (Fentanyl Bolus) 250 mls @ 0 mls/hr IVPB PRN PRN PRN Reason: Breakthrough pain/agitation Stop: 12/31/18 21:07 Sodium Chloride (Normal Saline 0.9%) 1,000 mls @ 75 mls/hr IV .[id number] [facility] Last Admin: 12/05/18 20:42 Dose: 1,000 mls Labetalol HCl (Normodyne) 20 mg SLOW IVP Q2H PRN PRN Reason: SBP GREATER THAN 160 Last Admin: 12/06/18 13:14 Dose: 20 mg Lisinopril (Zestril) 5 mg PO DAILY [facility] Last Admin: 12/06/18 08:17 Dose: 5 mg Melatonin (Melatonin) 3 mg PO HS PRN PRN Reason: Insomnia Miscellaneous Medication (Ccu Electrolyte Replacement) 1 each FS ONE [facility] Stop: 01/01/19 00:43 Morphine Sulfate (Morphine) 2 mg SLOW IVP Q1H PRN PRN Reason: BREAKTHROUGH PAIN/Agitation Stop: 12/31/18 21:07 Last Admin: 12/05/18 20:34 Dose: 2 mg Morphine Sulfate (Morphine) 4 mg SLOW IVP Q1H PRN PRN Reason: Pain Last Admin: 12/06/18 13:18 Dose: 4 mg Discontinue Previous Narcotic Pain Medications And Benzodiazepines 1 each FS .ONE [facility] Stop: 12/31/18 21:07 Ccu Electrolyte (Replacement Protocol) 0 each FS PRN PRN PRN Reason: FOR ELECTROLYTE REPLACEMENT Ondansetron HCl (Zofran) 4 mg IVP Q6H PRN PRN Reason: Nausea/Vomiting Last Admin: 12/06/18 11:02 Dose: 4 mg Pantoprazole Sodium (Protonix) 40 mg IVP DAILY [facility] Last Admin: 12/06/18 08:15 Dose: 40 mg Potassium Chloride (K-Dur) 40 meq PO Q4H [facility] Stop: 12/06/18 23:01 Sodium Chloride (Flush - Normal Saline) 10 ml IVF Q12HR [facility] Last Admin: 12/06/18 08:19 Dose: 10 ml Sodium Chloride (Flush - Normal Saline) 10 ml IVF PRN PRN PRN Reason: Saline Flush Sodium Chloride (Normal Saline Pf) 10 ml FS PRN PRN PRN Reason: RECONSTITUTION Last Admin: 12/01/18 21:40 Dose: 10 ml Tramadol HCl (Ultram) 50 mg PO Q4H PRN PRN Reason: Pain Last Admin: 12/06/18 11:53 Dose: 50 mg Trazodone HCl (Desyrel) 50 mg PO HS PRN PRN Reason: Insomnia Last Admin: 12/05/18 21:38 Dose: 50 mg
[2018-12-06] MEDS ORDERED: Loperamide HCl 2 MG CAP PO PRN (14:58)
[2018-12-06] MEDS ORDERED: Saccharomyces boulardii 250 MG CAP PO SCH (15:00)
[2018-12-06] MEDS ORDERED: Loperamide HCl 2 MG CAP PO SCH (15:00)
[2018-12-06] MEDS ORDERED: Meclizine HCl 25 MG TAB PO SCH (15:30)
[2018-12-06] MEDS: Sodium Chloride 0.9% 1,000 ML IV SCH (15:34)
[2018-12-06] MEDS: Potassium Chloride 20 MEQ TAB PO SCH ×2 (15:34→19:01)
[2018-12-06] MEDS: Lisinopril 5 MG TAB PO SCH (21:08)
[2018-12-06] MEDS: traZODone HCl 50 MG TAB PO PRN (21:44)
--- NOTE | 2018-12-06 23:53 | PDOC.GSPN ---
Surgery Progress Note: Subj - Subjective Narrative: Patient is still having diarrhea all of the crampy abdominal pain has improved. Whenever she tries to sit up or move around the room starts to spin she gets dizzy. No fevers or chills. Her blood pressures up the other vital signs are normal. Urine output has been good. White count is slightly elevated but other labs look okay. Potassium is low likely due to diarrhea. Abdomen is soft and nondistended. Assessment/plan: Status post small bowel resection for mesenteric ischemia. Fully anticoagulated. No bleeding but having copious diarrhea. She is on Florastor and off antibiotics. C. difficile is negative. She gets nauseated when she tries to get up and move around but is not nauseated at rest. I'm going to cautiously advance her diet. I'll leave the [place] in for today due to poor mobility and copious diarrhea. Surgery Progress Note: Obj - Vital signs Vital signs: Vital Signs - Most Recent Temp Pulse Resp BP Pulse Ox 98 F 76 16 149/85 H 93 L 12/06/18 23:31 12/06/18 23:31 12/06/18 23:31 12/06/18 23:31 12/06/18 23:31 Surgery Progress Note: Results - Labs Result Diagrams: 12/06/18 05:11 12/06/18 13:49 Lab results: Laboratory Results - last 24 hr 12/01/18 12/01/18 12/01/18 18:46 23:44 23:44 Protein C Chromogenic 53 L Protein S Activity 38.0 L Func Antithrombin III 77.0 L Specimen Type ARTERIAL Puncture Site COURTNEY Bicarbonate Actual 16.8 L ABG pH 7.33 L ABG pCO2 32.7 L ABG pO2 450.3 H ABG O2 Sat Calc/Yordy 99.9 H ABG O2 Content 19.3 ABG Base Excess -8.1 L ABG Hematocrit 38.0 ABG Hemoglobin 13.0 ABG Oxyhemoglobin 99.2 H ABG Carboxyhemoglobin 0.6 ABG Methemoglobin 0.10 ABG Deoxyhemoglobin 0.1 Sodium 140 Potassium 3.39 L Chloride 109 H Ionized Calcium 1.04 L Mode of Support OR ABG Carbon Dioxide Anion Gap BUN Creatinine Estimated GFR (MDRD) Glucose Calcium JAK2 V617F Path Consult JAK2 V617F Mutation JAK2 V617F Mut Bckgrnd Flow Cytometry Interp 12/04/18 12/06/18 10:50 13:49 Protein C Chromogenic Protein S Activity Func Antithrombin III Specimen Type Puncture Site Bicarbonate Actual ABG pH ABG pCO2 ABG pO2 ABG O2 Sat Calc/Yordy ABG O2 Content ABG Base Excess ABG Hematocrit ABG Hemoglobin ABG Oxyhemoglobin ABG Carboxyhemoglobin ABG Methemoglobin ABG Deoxyhemoglobin Sodium 140 Potassium 2.9 L* Chloride 109 H Ionized Calcium Mode of Support Carbon Dioxide 27 Anion Gap 7 L BUN 5 L Creatinine 0.44 L Estimated GFR (MDRD) Greater than 90 Glucose 99 Calcium 8.0 JAK2 V617F Path Consult JAK2 V617F Mutation JAK2 V617F Mut Bckgrnd Flow Cytometry Interp
[2018-12-07] MEDS: traMADol HCl 50 MG TAB PO PRN ×2 (02:57→10:00)
[2018-12-07] MEDS: hydrALAZINE 20 MG/ML VIAL SLOW IVP PRN ×2 (03:02→13:19)
[2018-12-07] MEDS: Morphine 2 MG/ML SYRINGE SLOW IVP PRN (03:07)
[2018-12-07 03:57] LABS: Band 2 % (5-11); Hemoglobin 10.3 g/dL (12.0-16.0); Hypochromia SLIGHT = 6-15 cells (100X) (0-5/hpf); Lymphocytes 14 % (21-51); MDiff Complete? YES; Mean Corpuscular HGB CONC 31.4 g/dL (32.0-36.0); Mean Corpuscular Volume 85.9 fL (78.0-98.0); Monocytes 4 % (0-10); Neutrophil 80 % (42-75); Platelet Count 249 thou/uL (130-400); Platelet Morphology Comment Appears Adequate; RBC Distribution Width 15.4 % (11.5-14.5); Red Blood Cell (RBC) Count 3.82 mill/uL (4.20-5.40); White Blood Cell (WBC) Count 15.6 thou/uL (4.8-10.8)
[2018-12-07 04:07] LABS: Anion Gap 9 mmol/L (10-20); BUN (Urea Nitrogen) 4 mg/dL (9.8-20.1); Calc. Creatinine Clearance 237 mL/min (70-130); Carbon Dioxide 22 mmol/L (22-29); Chloride 114 mmol/L (98-107); Estimated GFR-MDRD Greater than 90; Glucose 82 mg/dL (70-105); Sodium 142 mmol/L (136-145)
[2018-12-07] MEDS: Enoxaparin Sodium 100 MG/ML SYRINGE SC SCH ×2 (09:58→20:48)
[2018-12-07] MEDS: Lisinopril 5 MG TAB PO SCH (09:59)
[2018-12-07] MEDS: Saccharomyces boulardii 250 MG CAP PO SCH (09:59)
[2018-12-07] MEDS: Pantoprazole 40 MG VIAL IVP SCH (10:00)
[2018-12-07] MEDS: Scopolamine 1.5 mg/72 hour Patch TOP SCH (10:00)
[2018-12-07] MEDS: Morphine 4 MG/ML VIAL SLOW IVP PRN (10:17)
[2018-12-07] MEDS ORDERED: HYDROcodone/Acetaminophen 10/325 mg Tablet PO PRN (13:13)
[2018-12-07] MEDS ORDERED: Fentanyl 100 MCG/2 ML VIAL SLOW IVP PRN (13:14)
[2018-12-07] MEDS: HYDROcodone/Acetaminophen 10/325 mg Tablet PO PRN ×2 (13:30→20:46)
--- NOTE | 2018-12-07 14:48 | ULT ---
BILATERAL LOWER EXTREMITY VENOUS DUPLEX ULTRASOUND INCLUDING COLOR AND SPECTRAL DOPPLER IMAGING: HISTORY: Thromboembolic disease, bilateral leg swelling and edema. FINDINGS: Exam performed from groin to ankle including visualized greater saphenous, common femoral, superficia l femoral, profunda femoral, popliteal, trifurcation, and posterior tibial vein regions. There is ph asic flow at all levels with normal compressibility and normal augmentation. No intraluminal thrombu s. IMPRESSION: No evidence for deep venous thrombosis. POS: C
--- NOTE | 2018-12-07 15:13 | PDOC.GSPN ---
Surgery Progress Note: Subj - Subjective Narrative: Patient is feeling a little better today. She was having some lower abdominal pain yesterday and felt like her catheter was working. The nurses discovered that there was a kink in the tubing and she had almost a liter of urine in her bladder which then drained, with immediate relief of her pain. No blood in the urine. Her diarrhea has basically stopped; she is still passing gas however and having an occasional soft stools. She is still having a lot of nausea and burping. She has even small amounts of full liquids because she has a poor appetite, but the food she has taken and has not caused any increase in abdominal pain or nausea. Abdomen is soft and nondistended. Incisions look good and bowel sounds are normal. She is afebrile with normal vital signs. Her white count is up a little bit today but other labs look pretty good. Assessment/plan: Status post small bowel resection for ischemic bowel slowly improving. Her nausea seems to be related to motion and she is passing gas and having bowel movements so I don't think she has an obstruction. I'm going to advance her to a soft diet and see how she tolerates that. I'm not sure why her white count is back up, but she is not tachycardic or febrile. Sometimes patients can develop splenic abscesses after an infarct but this is a little early in the course for that. Intra-abdominal abscesses after small bowel resections are uncommon as well. If her white count continues to rise I'll order repeat scan of her abdomen. If she requires further imaging, I will also include a CT angio of the chest to see if any other thromboembolic sources are evident. We're working on getting a peripheral IV and getting her central line out. I was going to discontinue her Posada catheter today, but given her recent episode of bladder distention I'm going to leave it in for one more day to allow her bladder to recover. Surgery Progress Note: Obj - Vital signs Vital signs: Vital Signs - Most Recent Temp Pulse Resp BP Pulse Ox 98.4 F 73 18 179/104 H 93 L 12/07/18 12:12 12/07/18 13:19 12/07/18 12:12 12/07/18 13:19 12/07/18 12:12 Surgery Progress Note: Results - Labs Result Diagrams: 12/07/18 03:10 12/07/18 03:10 Lab results: Laboratory Results - last 24 hr 12/07/18 12/07/18 03:10 03:10 WBC 15.6 H RBC 3.82 L Hgb 10.3 L Hct 32.8 L MCV 85.9 MCH 27.0 MCHC 31.4 L RDW 15.4 H Plt Count 249 MPV 8.0 Neutrophils % (Manual) 80 H Band Neuts % (Manual) 2 L Lymphocytes % (Manual) 14 L Monocytes % (Manual) 4 Hypochromia SLIGHT = 6-15 cells Plt Morphology Comment Appears Adequate Sodium 142 Potassium 3.0 L Chloride 114 H Carbon Dioxide 22 Anion Gap 9 L BUN 4 L Creatinine Less than 0.40 L Estimated GFR (MDRD) Greater than 90 Glucose 82 Calcium 7.0 L
--- NOTE | 2018-12-07 17:07 | PDOC.PN ---
- Subjective Encounter Start Date: 12/07/18 Encounter Start Time: 09:00 Pt seen for followup re: hypokalemia. Feels better. Slept better. Tolerating fluid diet. - Objective Resuscitation Status - Order Detail: 12/01/18 23:37 Resuscitation Status Routine Resuscitation Status: FULL: Full Resuscitation MAR Reviewed: Yes Vital Signs & Weight: Vital Signs (12 hours) Temp Pulse Resp BP BP Pulse Ox 12/07/18 13:19 73 179/104 H 12/07/18 12:12 98.4 F 75 18 178/83 H 93 L 12/07/18 09:59 77 149/85 H 12/07/18 07:35 98.3 F 77 16 149/85 H 92 L 12/07/18 05:07 98.3 F 18 94 L Weight Admit Weight 205 lb 7.533 oz Weight 205 lb 7.533 oz Most Recent Monitor Data Heart Rate from ECG 78 NIBP 150/102 NIBP BP-Mean 118 Respiration from ECG 19 SpO2 96 I&O: 12/06/18 12/07/18 12/08/18 06:59 06:59 06:59 Intake Total 1860 1900 Output Total 1875 2950 Balance -15 -1050 Result Diagrams: 12/07/18 03:10 12/07/18 03:10 Additional Labs: Labs reviewed by me Phys Exam - Physical Examination Constitutional: NAD HEENT: moist MMs Neck: supple Respiratory: clear to auscultation bilateral Cardiovascular: RRR Gastrointestinal: soft Neurological: moves all 4 limbs Psychiatric: normal affect Dx/Plan (1) Hypokalemia Code(s): E87.6 - HYPOKALEMIA Status: Acute Comment: replace potassium orally (2) Mesenteric ischemia Code(s): K55.9 - VASCULAR DISORDER OF INTESTINE, UNSPECIFIED Status: Acute Comment: Improving (3) Aortic thrombus Code(s): 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 Review of Systems - Review of Systems Constitutional: negative: fever, chills, sweats, weakness, malaise Gastrointestinal: Diarrhea. negative: Nausea, Vomiting, Abdominal Pain, Constipation, Melena, Hematochezia - Medications/Allergies Allergies/Adverse Reactions: Allergies Allergy/AdvReac Type Severity Reaction Status Date / Time adhesive tape Allergy Verified 09/15/17 12:53 amoxicillin [From Augmentin] Allergy Verified 09/15/17 12:53 ciprofloxacin [From Cipro] Allergy Verified 09/15/17 12:53 clavulanic acid Allergy Verified 09/15/17 12:53 [From Augmentin] prednisone Allergy Verified 09/15/17 12:53 Medications: Current Medications Acetaminophen (Tylenol) 980 mg MT Q6H PRN PRN Reason: Pain Acetaminophen (Tylenol) 1,000 mg PO Q6H PRN PRN Reason: Moderate to Severe Pain (6-10) Last Admin: 12/06/18 08:18 Dose: 1,000 mg Acetaminophen (Tylenol) 500 mg PO Q6H PRN PRN Reason: Pain 1-5 Hydrocodone Bitart/Acetaminophen ([place] 10/325) 1 tab PO Q4H PRN PRN Reason: Pain 1-4 Hydrocodone Bitart/Acetaminophen ([place] 10/325) 2 tab PO Q4H PRN PRN Reason: Pain 5-10 Last Admin: 12/07/18 13:30 Dose: 2 tab Amlodipine Besylate (Norvasc) 5 mg PO DAILY [facility] Amlodipine Besylate (Norvasc) 5 mg PO ONE [facility] Enoxaparin Sodium (Lovenox) 90 mg SC 0900,2100 [facility] Last Admin: 12/07/18 09:58 Dose: 90 mg Fentanyl (Sublimaze) 50 mcg SLOW IVP Q1H PRN PRN Reason: .SEVERE PAIN Last Admin: 12/07/18 13:29 Dose: 50 mcg Sodium Chloride (Normal Saline 0.9%) 1,000 mls @ 75 mls/hr IV .[id number] [facility] Last Admin: 12/06/18 15:34 Dose: 1,000 mls Labetalol HCl (Normodyne) 20 mg SLOW IVP Q2H PRN PRN Reason: SBP GREATER THAN 160 Last Admin: 12/06/18 13:14 Dose: 20 mg Lisinopril (Zestril) 5 mg PO BID [facility] Last Admin: 12/07/18 09:59 Dose: 5 mg Lisinopril (Zestril) 10 mg PO BID [facility] Loperamide HCl (Imodium) 2 mg PO PRN PRN PRN Reason: Diarrhea/Loose Stools Melatonin (Melatonin) 3 mg PO HS PRN PRN Reason: Insomnia Morphine Sulfate (Morphine) 2 mg SLOW IVP Q1H PRN PRN Reason: BREAKTHROUGH PAIN/Agitation Stop: 12/31/18 21:07 Last Admin: 12/07/18 03:07 Dose: 2 mg Morphine Sulfate (Morphine) 4 mg SLOW IVP Q1H PRN PRN Reason: Pain Last Admin: 12/07/18 10:17 Dose: 4 mg Discontinue Previous Narcotic Pain Medications And Benzodiazepines 1 each FS .ONE [facility] Stop: 12/31/18 21:07 Ondansetron HCl (Zofran) 4 mg IVP Q6H PRN PRN Reason: Nausea/Vomiting Last Admin: 12/06/18 21:09 Dose: 4 mg Pantoprazole Sodium (Protonix) 40 mg IVP DAILY [facility] Last Admin: 12/07/18 10:00 Dose: 40 mg Saccharomyces Boulardii (Florastor) 250 mg PO DAILY [facility] Last Admin: 12/07/18 09:59 Dose: 250 mg Scopolamine (Transderm Scop) 1.5 mg TOP Q3D [facility] Last Admin: 12/07/18 10:00 Dose: 1.5 mg Sodium Chloride (Flush - Normal Saline) 10 ml IVF Q12HR [facility] Last Admin: 12/07/18 10:00 Dose: 10 ml Sodium Chloride (Flush - Normal Saline) 10 ml IVF PRN PRN PRN Reason: Saline Flush Sodium Chloride (Normal Saline Pf) 10 ml FS PRN PRN PRN Reason: RECONSTITUTION Last Admin: 12/01/18 21:40 Dose: 10 ml Tramadol HCl (Ultram) 50 mg PO Q4H PRN PRN Reason: Pain Last Admin: 12/07/18 10:00 Dose: 50 mg Trazodone HCl (Desyrel) 50 mg PO HS PRN PRN Reason: Insomnia Last Admin: 12/06/18 21:44 Dose: 50 mg
[2018-12-07] MEDS ORDERED: Amlodipine 5 MG TAB PO SCH (17:30)
[2018-12-07] MEDS: Sodium Chloride 0.9% 1,000 ML IV SCH ×2 (18:17→20:58)
[2018-12-07] MEDS: Lisinopril 10 MG TAB PO SCH (20:48)
[2018-12-08] MEDS: HYDROcodone/Acetaminophen 10/325 mg Tablet PO PRN ×5 (00:43→23:11)
[2018-12-08] MEDS: Sodium Chloride 0.9% 1,000 ML IV SCH ×2 (00:52→16:06)
[2018-12-08] MEDS: Melatonin 3 MG TAB PO PRN (01:32)
[2018-12-08 05:22] LABS: #Basophils 0.1 thou/uL (0.0-0.2); #Eosinphils 0.3 thou/uL (0.0-0.7); #Lymphocytes 2.5 thou/uL (1.20-3.40); #Monocytes 1.7 thou/uL (0.11-0.59); #Neutrophils 12.5 thou/uL (1.40-6.50); %Basophils 0.6 % (0.0-1.0); %Eosinophils 1.7 % (0.0-10.0); %Lymphocytes 14.6 % (21.0-51.0); %Monocytes 9.7 % (0.0-10.0); %Neutrophils 73.4 % (42.0-75.0); Hemoglobin 10.7 g/dL (12.0-16.0); Mean Corpuscular HGB CONC 31.3 g/dL (32.0-36.0); Mean Corpuscular Hemoglobin 26.5 pg (27.0-31.0); Mean Corpuscular Volume 84.7 fL (78.0-98.0); Mean Platelet Volume 8.3 fL (7.4-10.4); Platelet Count 311 thou/uL (130-400); RBC Distribution Width 15.4 % (11.5-14.5); Red Blood Cell (RBC) Count 4.02 mill/uL (4.20-5.40)
[2018-12-08 06:12] LABS: Anion Gap 11 mmol/L (10-20); BUN (Urea Nitrogen) 6 mg/dL (9.8-20.1); Calc. Creatinine Clearance 193 mL/min (70-130); Calcium 8.7 mg/dL (7.8-10.44); Carbon Dioxide 25 mmol/L (22-29); Chloride 104 mmol/L (98-107); Estimated GFR-MDRD Greater than 90; Glucose 107 mg/dL (70-105); Potassium 3.4 mmol/L (3.5-5.1); Sodium 137 mmol/L (136-145)
[2018-12-08] MEDS: Saccharomyces boulardii 250 MG CAP PO SCH (07:59)
[2018-12-08] MEDS: Pantoprazole 40 MG VIAL IVP SCH (07:59)
[2018-12-08] MEDS: Lisinopril 10 MG TAB PO SCH ×2 (08:01→20:20)
[2018-12-08] MEDS: Enoxaparin Sodium 100 MG/ML SYRINGE SC SCH ×2 (08:02→20:38)
[2018-12-08] MEDS ORDERED: Amlodipine 5 MG TAB PO SCH (09:00)
[2018-12-08 09:46] LABS: HEX PHOS LA Tube 2 75.5 SEC; Hexagonal Phospholipid Neut 9.5 SEC (0-8.0)
[2018-12-08] MEDS: Ondansetron PF 4 MG/2 ML Vial IVP PRN ×2 (13:54→20:18)
--- NOTE | 2018-12-08 16:54 | PDOC.PN ---
- Subjective Encounter Start Date: 12/08/18 Encounter Start Time: 08:40 Pt seen for followup re: hypokalemia. Says she feels much better today. - Objective Resuscitation Status - Order Detail: 12/01/18 23:37 Resuscitation Status Routine Resuscitation Status: FULL: Full Resuscitation MAR Reviewed: Yes Vital Signs & Weight: Vital Signs (12 hours) Temp Pulse Resp BP BP Pulse Ox 12/08/18 15:45 98.4 F 88 14 132/82 92 L 12/08/18 14:56 98.2 F 12/08/18 10:56 98.1 F 73 16 148/83 H 93 L 12/08/18 08:01 70 160/97 H 12/08/18 07:54 98.2 F 70 16 160/97 H 93 L Weight Admit Weight 205 lb 7.533 oz Weight 205 lb 7.533 oz Most Recent Monitor Data Heart Rate from ECG 78 NIBP 150/102 NIBP BP-Mean 118 Respiration from ECG 19 SpO2 96 I&O: 12/07/18 12/08/18 12/09/18 06:59 06:59 06:59 Intake Total 1900 2450 Output Total 2950 4210 Balance -1050 -1760 Result Diagrams: 12/08/18 04:55 12/08/18 04:55 Additional Labs: Labs reviewed by me Phys Exam - Physical Examination Constitutional: NAD HEENT: moist MMs Neck: supple Respiratory: clear to auscultation bilateral Cardiovascular: RRR Gastrointestinal: soft dressing Neurological: moves all 4 limbs Psychiatric: normal affect Dx/Plan (1) Hypokalemia Code(s): E87.6 - HYPOKALEMIA Status: Acute Comment: replace potassium (2) Mesenteric ischemia Code(s): K55.9 - VASCULAR DISORDER OF INTESTINE, UNSPECIFIED Status: Acute Comment: Improving (3) Aortic thrombus Code(s): I74.10 - EMBOLISM AND THROMBOSIS OF UNSPECIFIED PARTS OF AORTA Status : Acute Comment: on therapeutic Lovenox (4) HTN (hypertension) Code(s): I10 - ESSENTIAL (PRIMARY) HYPERTENSION Status: Chronic Comment: Improved control - Plan * . Review of Systems - Review of Systems Cardiovascular: negative: chest pain, palpitations, orthopnea, paroxysmal nocturnal dyspnea, edema, light headedness Gastrointestinal: negative: Nausea, Vomiting, Abdominal Pain, Diarrhea, Constipation, Melena, Hematochezia - Medications/Allergies Allergies/Adverse Reactions: Allergies Allergy/AdvReac Type Severity Reaction Status Date / Time adhesive tape Allergy Verified 09/15/17 12:53 amoxicillin [From Augmentin] Allergy Verified 09/15/17 12:53 ciprofloxacin [From Cipro] Allergy Verified 09/15/17 12:53 clavulanic acid Allergy Verified 09/15/17 12:53 [From Augmentin] prednisone Allergy Verified 09/15/17 12:53 Medications: Current Medications Acetaminophen (Tylenol) 980 mg MA Q6H PRN PRN Reason: Pain Acetaminophen (Tylenol) 1,000 mg PO Q6H PRN PRN Reason: Moderate to Severe Pain (6-10) Last Admin: 12/06/18 08:18 Dose: 1,000 mg Acetaminophen (Tylenol) 500 mg PO Q6H PRN PRN Reason: Pain 1-5 Hydrocodone Bitart/Acetaminophen ([place] 10/325) 1 tab PO Q4H PRN PRN Reason: Pain 1-4 Hydrocodone Bitart/Acetaminophen ([place] 10/325) 2 tab PO Q4H PRN PRN Reason: Pain 5-10 Last Admin: 12/08/18 13:54 Dose: 2 tab Amlodipine Besylate (Norvasc) 5 mg PO DAILY [facility] Last Admin: 12/08/18 08:01 Dose: 5 mg Enoxaparin Sodium (Lovenox) 90 mg SC 0900,2100 [facility] Last Admin: 12/08/18 08:02 Dose: 90 mg Fentanyl (Sublimaze) 50 mcg SLOW IVP Q1H PRN PRN Reason: .SEVERE PAIN Last Admin: 12/07/18 13:29 Dose: 50 mcg Sodium Chloride (Normal Saline 0.9%) 1,000 mls @ 75 mls/hr IV .[id number] [facility] Last Admin: 12/08/18 16:06 Dose: 1,000 mls Labetalol HCl (Normodyne) 20 mg SLOW IVP Q2H PRN PRN Reason: SBP GREATER THAN 160 Last Admin: 12/06/18 13:14 Dose: 20 mg Lisinopril (Zestril) 10 mg PO BID [facility] Last Admin: 12/08/18 08:01 Dose: 10 mg Loperamide HCl (Imodium) 2 mg PO PRN PRN PRN Reason: Diarrhea/Loose Stools Melatonin (Melatonin) 3 mg PO HS PRN PRN Reason: Insomnia Last Admin: 12/08/18 01:32 Dose: 3 mg Morphine Sulfate (Morphine) 2 mg SLOW IVP Q1H PRN PRN Reason: BREAKTHROUGH PAIN/Agitation Stop: 12/31/18 21:07 Last Admin: 12/07/18 03:07 Dose: 2 mg Morphine Sulfate (Morphine) 4 mg SLOW IVP Q1H PRN PRN Reason: Pain Last Admin: 12/07/18 10:17 Dose: 4 mg Discontinue Previous Narcotic Pain Medications And Benzodiazepines 1 each FS .ONE [facility] Stop: 12/31/18 21:07 Ondansetron HCl (Zofran) 4 mg IVP Q6H PRN PRN Reason: Nausea/Vomiting Last Admin: 12/08/18 13:54 Dose: 4 mg Pantoprazole Sodium (Protonix) 40 mg IVP DAILY [facility] Last Admin: 12/08/18 07:59 Dose: 40 mg Saccharomyces Boulardii (Florastor) 250 mg PO DAILY [facility] Last Admin: 12/08/18 07:59 Dose: 250 mg Scopolamine (Transderm Scop) 1.5 mg TOP Q3D [facility] Last Admin: 12/07/18 10:00 Dose: 1.5 mg Sodium Chloride (Flush - Normal Saline) 10 ml IVF Q12HR [facility] Last Admin: 12/08/18 08:02 Dose: 10 ml Sodium Chloride (Flush - Normal Saline) 10 ml IVF PRN PRN PRN Reason: Saline Flush Sodium Chloride (Normal Saline Pf) 10 ml FS PRN PRN PRN Reason: RECONSTITUTION Last Admin: 12/01/18 21:40 Dose: 10 ml Tramadol HCl (Ultram) 50 mg PO Q4H PRN PRN Reason: Pain Last Admin: 12/07/18 10:00 Dose: 50 mg Trazodone HCl (Desyrel) 50 mg PO HS PRN PRN Reason: Insomnia Last Admin: 12/06/18 21:44 Dose: 50 mg
[2018-12-08] MEDS: Potassium Chloride 20 MEQ TAB PO SCH ×2 (17:25→22:58)
--- NOTE | 2018-12-08 19:23 | PDOC.GSPN ---
Surgery Progress Note: Subj - Subjective Narrative: Patient's white count is still up that she is actually feeling much better. She hasn't had any fevers or chills and she is passing gas with decreased abdominal pain. She is still having nausea but only when she gets up and moves around. She has been eating small amounts and this has not exacerbated her nausea or abdominal pain. She states that the reason she isn't eating much is because the food is not very good, not because it bothers her in any way. Her incisions look good and her abdomen is soft and nondistended and minimally tender. Bowel sounds are present. Assessment/plan: Status post small bowel resection for mesenteric ischemia due to thromboembolic events. White count is still up but the patient is clinically improving so I will hold off on further imaging for now. If she develops a fever or if her white count climbs further then I would recommend CT angiogram of chest abdomen and pelvis. Otherwise continue with current care. Dr. Vivas will be caring for the patient over the weekend after which Dr Pandya will be assuming care. I will be out of town for 2 weeks but the patient can follow up with me upon my return. Surgery Progress Note: Obj - Vital signs Vital signs: Vital Signs - Most Recent Temp Pulse Resp BP Pulse Ox 98.4 F 88 14 132/82 92 L 12/08/18 15:45 12/08/18 15:45 12/08/18 15:45 12/08/18 15:45 12/08/18 15:45 Surgery Progress Note: Results - Labs Result Diagrams: 12/08/18 04:55 12/08/18 04:55 Lab results: Laboratory Results - last 24 hr 12/01/18 23:44 Hexagon Phase Neutraliz 9.5 H Protein C Chromogenic 53 L Protein S Activity 38.0 L Func Antithrombin III 77.0 L
[2018-12-08] MEDS: Labetalol HCl 100 MG/20 ML VIAL SLOW IVP PRN (20:30)
[2018-12-08] MEDS: traZODone HCl 50 MG TAB PO PRN (22:49)
[2018-12-09] MEDS: traMADol HCl 50 MG TAB PO PRN ×3 (01:34→21:33)
[2018-12-09] MEDS: Sodium Chloride 0.9% 1,000 ML IV SCH ×3 (03:32→14:18)
[2018-12-09 05:56] LABS: Anion Gap 10 mmol/L (10-20); BUN (Urea Nitrogen) 6 mg/dL (9.8-20.1); Calc. Creatinine Clearance 197 mL/min (70-130); Calcium 8.6 mg/dL (7.8-10.44); Carbon Dioxide 28 mmol/L (22-29); Chloride 103 mmol/L (98-107); Estimated GFR-MDRD Greater than 90; Glucose 93 mg/dL (70-105); Potassium 3.8 mmol/L (3.5-5.1); Sodium 137 mmol/L (136-145)
--- NOTE | 2018-12-09 08:23 | PRG ---
DATE OF SERVICE: 12/09/2018 SUBJECTIVE: The patient reports she feels much better today. She has been able to tolerate a little bit of food. She does not have any nausea or vomiting. Pain is much better. OBJECTIVE: VITAL SIGNS: Her temperature is 98.2, pulse is 68, blood pressure is 163/92. GENERAL: She is awake, alert, does not appear to be in any distress. LUNGS: Clear. ABDOMEN: Nondistended. The incision is healing well. There is no evidence of infection. ASSESSMENT: Doing well. PLAN: Continue supportive care. Job ID: [id number]
[2018-12-09 08:58] LABS: #Basophils 0.1 thou/uL (0.0-0.2); #Eosinphils 0.5 thou/uL (0.0-0.7); #Lymphocytes 2.4 thou/uL (1.20-3.40); #Monocytes 1.5 thou/uL (0.11-0.59); #Neutrophils 12.7 thou/uL (1.40-6.50); %Basophils 0.6 % (0.0-1.0); %Lymphocytes 13.9 % (21.0-51.0); %Monocytes 8.5 % (0.0-10.0); %Neutrophils 73.9 % (42.0-75.0); Hemoglobin 10.9 g/dL (12.0-16.0); Mean Corpuscular Hemoglobin 26.6 pg (27.0-31.0); Mean Corpuscular Volume 85.9 fL (78.0-98.0); Mean Platelet Volume 7.5 fL (7.4-10.4); Platelet Count 405 thou/uL (130-400); RBC Distribution Width 15.9 % (11.5-14.5); White Blood Cell (WBC) Count 17.2 thou/uL (4.8-10.8)
[2018-12-09] MEDS: HYDROcodone/Acetaminophen 10/325 mg Tablet PO PRN ×4 (09:25→22:40)
[2018-12-09] MEDS: Amlodipine 10 MG TAB PO SCH (09:28)
[2018-12-09] MEDS: Saccharomyces boulardii 250 MG CAP PO SCH (09:28)
[2018-12-09] MEDS: Enoxaparin Sodium 100 MG/ML SYRINGE SC SCH ×3 (09:29→21:33)
[2018-12-09] MEDS: Pantoprazole 40 MG VIAL IVP SCH (09:29)
[2018-12-09] MEDS: Lisinopril 10 MG TAB PO SCH ×2 (09:29→21:32)
--- NOTE | 2018-12-09 16:07 | PDOC.PN ---
- Subjective Encounter Start Date: 12/09/18 Encounter Start Time: 08:00 Pt seen for followup re: mesenteric ischemia. Says she feels better. - Objective Resuscitation Status - Order Detail: 12/01/18 23:37 Resuscitation Status Routine Resuscitation Status: FULL: Full Resuscitation MAR Reviewed: Yes Vital Signs & Weight: Vital Signs (12 hours) Temp Pulse Resp BP BP BP Pulse Ox 12/09/18 15:56 98.5 F 83 16 136/84 94 L 12/09/18 12:15 98.7 F 80 18 145/82 H 94 L 12/09/18 09:29 163/92 H 12/09/18 09:28 68 163/92 H 12/09/18 08:05 100 12/09/18 07:22 98.2 F 68 16 163/92 H 100 12/09/18 04:47 98.7 F 75 16 138/85 94 L Weight Admit Weight 205 lb 7.533 oz Weight 205 lb 7.533 oz Most Recent Monitor Data Heart Rate from ECG 78 NIBP 150/102 NIBP BP-Mean 118 Respiration from ECG 19 SpO2 96 I&O: 12/08/18 12/09/18 12/10/18 06:59 06:59 06:59 Intake Total 2450 3120 730 Output Total 4210 2350 Balance -1760 770 730 Result Diagrams: 12/09/18 08:50 12/09/18 05:23 Additional Labs: Labs reviewed by me Phys Exam - Physical Examination Constitutional: NAD HEENT: moist MMs Neck: supple Respiratory: clear to auscultation bilateral Cardiovascular: RRR Gastrointestinal: soft Neurological: moves all 4 limbs Psychiatric: normal affect Dx/Plan (1) Mesenteric ischemia Code(s): K55.9 - VASCULAR DISORDER OF INTESTINE, UNSPECIFIED Status: Acute Comment: Improved, s/p surgery x 2 (2) Aortic thrombus Code(s): I74.10 - EMBOLISM AND THROMBOSIS OF UNSPECIFIED PARTS OF AORTA Status : Acute Comment: on therapeutic Lovenox. Plan to transition to warfarin when there are no plans for further surgery. Right now pt has leucocytosis, therefore holding off warfarin in case pt needs further procedures. (3) HTN (hypertension) Code(s): I10 - ESSENTIAL (PRIMARY) HYPERTENSION Status: Chronic Comment: Improved control (4) Hypokalemia Code(s): E87.6 - HYPOKALEMIA Status: Resolved - Plan PT/OT, out of bed/ambulate * . Pt reports having recent MRI spine with abnormal findings at [facility], will obtain report. Review of Systems - Review of Systems Cardiovascular: negative: chest pain, palpitations, orthopnea, paroxysmal nocturnal dyspnea, edema, light headedness Gastrointestinal: negative: Nausea, Vomiting, Abdominal Pain, Diarrhea, Constipation, Melena, Hematochezia - Medications/Allergies Allergies/Adverse Reactions: Allergies Allergy/AdvReac Type Severity Reaction Status Date / Time adhesive tape Allergy Verified 09/15/17 12:53 amoxicillin [From Augmentin] Allergy Verified 09/15/17 12:53 ciprofloxacin [From Cipro] Allergy Verified 09/15/17 12:53 clavulanic acid Allergy Verified 09/15/17 12:53 [From Augmentin] prednisone Allergy Verified 09/15/17 12:53 Medications: Current Medications Acetaminophen (Tylenol) [address] Q6H PRN PRN Reason: Pain Acetaminophen (Tylenol) 1,000 mg PO Q6H PRN PRN Reason: Moderate to Severe Pain (6-10) Last Admin: 12/06/18 08:18 Dose: 1,000 mg Acetaminophen (Tylenol) 500 mg PO Q6H PRN PRN Reason: Pain 1-5 Hydrocodone Bitart/Acetaminophen ([place] 10/325) 1 tab PO Q4H PRN PRN Reason: Pain 1-4 Last Admin: 12/09/18 05:16 Dose: 1 tab Hydrocodone Bitart/Acetaminophen ([place] 10/325) 2 tab PO Q4H PRN PRN Reason: Pain 5-10 Last Admin: 12/09/18 14:19 Dose: 2 tab Amlodipine Besylate (Norvasc) 10 mg PO DAILY [facility]S [facility] Last Admin: 12/09/18 09:28 Dose: 10 mg Enoxaparin Sodium (Lovenox) 90 mg SC 0900,2100 [facility]S [facility] Last Admin: 12/09/18 09:38 Dose: 90 mg Fentanyl (Sublimaze) 50 mcg SLOW IVP Q1H PRN PRN Reason: .SEVERE PAIN Last Admin: 12/07/18 13:29 Dose: 50 mcg Sodium Chloride (Normal Saline 0.9%) 1,000 mls @ 75 mls/hr IV .[id number] [facility] 234 BEDS AT [facility] Last Admin: 12/09/18 14:18 Dose: 1,000 mls Labetalol HCl (Normodyne) 20 mg SLOW IVP Q2H PRN PRN Reason: SBP GREATER THAN 160 Last Admin: 12/08/18 20:30 Dose: 20 mg Lisinopril (Zestril) 10 mg PO BID [facility] 234 [facility]S AT [facility] Last Admin: 12/09/18 09:29 Dose: 10 mg Loperamide HCl (Imodium) 2 mg PO PRN PRN PRN Reason: Diarrhea/Loose Stools Melatonin (Melatonin) 3 mg PO HS PRN PRN Reason: Insomnia Last Admin: 12/08/18 01:32 Dose: 3 mg Morphine Sulfate (Morphine) 2 mg SLOW IVP Q1H PRN PRN Reason: BREAKTHROUGH PAIN/Agitation Stop: 12/31/18 21:07 Last Admin: 12/07/18 03:07 Dose: 2 mg Morphine Sulfate (Morphine) 4 mg SLOW IVP Q1H PRN PRN Reason: Pain Last Admin: 12/07/18 10:17 Dose: 4 mg Discontinue Previous Narcotic Pain Medications And Benzodiazepines 1 each FS .ONE [facility] 234 [facility]S [facility] Stop: 12/31/18 21:07 Ondansetron HCl (Zofran) 4 mg IVP Q6H PRN PRN Reason: Nausea/Vomiting Last Admin: 12/08/18 20:18 Dose: 4 mg Pantoprazole Sodium (Protonix) 40 mg IVP DAILY [facility] 234 [facility] Last Admin: 12/09/18 09:29 Dose: 40 mg Saccharomyces Boulardii (Florastor) 250 mg PO DAILY [facility] 234 B[facility]S [facility] Last Admin: 12/09/18 09:28 Dose: 250 mg Scopolamine (Transderm Scop) 1.5 mg TOP Q3D [facility] 234 BEDS AT [facility] Last Admin: 12/07/18 10:00 Dose: 1.5 mg Sodium Chloride (Flush - Normal Saline) 10 ml IVF Q12HR [facility] 234 BEDS AT [facility] Last Admin: 12/09/18 09:29 Dose: 10 ml Sodium Chloride (Flush - Normal Saline) 10 ml IVF PRN PRN PRN Reason: Saline Flush Sodium Chloride (Normal Saline Pf) 10 ml FS PRN PRN PRN Reason: RECONSTITUTION Last Admin: 12/01/18 21:40 Dose: 10 ml Tramadol HCl (Ultram) 50 mg PO Q4H PRN PRN Reason: Pain Last Admin: 12/09/18 01:34 Dose: 50 mg Trazodone HCl (Desyrel) 50 mg PO HS PRN PRN Reason: Insomnia Last Admin: 12/08/18 22:49 Dose: 50 mg
[2018-12-09] MEDS: Melatonin 3 MG TAB PO PRN (22:40)
[2018-12-09] MEDS: traZODone HCl 50 MG TAB PO PRN (22:40)
[2018-12-10] MEDS: HYDROcodone/Acetaminophen 10/325 mg Tablet PO PRN ×4 (03:45→20:32)
[2018-12-10] MEDS: Sodium Chloride 0.9% 1,000 ML IV SCH ×2 (03:45→09:34)
[2018-12-10] MEDS: Enoxaparin Sodium 100 MG/ML SYRINGE SC SCH ×2 (09:18→20:31)
[2018-12-10] MEDS: Amlodipine 10 MG TAB PO SCH (09:18)
[2018-12-10] MEDS: Saccharomyces boulardii 250 MG CAP PO SCH (09:18)
[2018-12-10] MEDS: Lisinopril 10 MG TAB PO SCH ×2 (09:18→20:32)
[2018-12-10] MEDS: Scopolamine 1.5 mg/72 hour Patch TOP SCH (09:19)
[2018-12-10] MEDS: Pantoprazole 40 MG VIAL IVP SCH (09:19)
[2018-12-10] MEDS: traMADol HCl 50 MG TAB PO PRN ×2 (09:33→14:10)
--- NOTE | 2018-12-10 10:57 | PRG ---
DATE OF SERVICE: 12/10/2018 SUBJECTIVE: She feels a little bit better, but she still gets dizzy when she is up for 25 minutes or more. She is tolerating some liquids. She is passing gas. No bowel movement. OBJECTIVE: GENERAL: She looks okay. She is awake and alert. VITAL SIGNS: Temperature 98, pulse 85, and blood pressure 123/77. ABDOMEN: Soft, nondistended, and nontender. She is still given Lovenox. ASSESSMENT: Stable. PLAN: Apparently, the jig builder helper has seen her and we will recommend some type of long-term anticoagulation for presumed hypercoagulable state. Job ID: [id number]
[2018-12-10] MEDS: Ondansetron PF 4 MG/2 ML Vial IVP PRN (11:24)
--- NOTE | 2018-12-10 13:56 | PDOC.PN ---
- Subjective Encounter Start Date: 12/10/18 Encounter Start Time: 08:00 P seen followup re:mesenteric ischemia. Says she feels better. - Objective Resuscitation Status - Order Detail: 12/01/18 23:37 Resuscitation Status Routine Resuscitation Status: FULL: Full Resuscitation Vital Signs & Weight: Vital Signs (12 hours) Temp Pulse Resp BP BP BP Pulse Ox 12/10/18 12:00 97.8 F 87 18 130/83 97 12/10/18 09:18 85 123/77 12/10/18 08:13 98.1 F 85 18 123/77 97 12/10/18 04:00 97.4 F L 79 16 143/87 H 97 Weight Admit Weight 205 lb 7.533 oz Weight 205 lb 7.533 oz Most Recent Monitor Data Heart Rate from ECG 78 NIBP 150/102 NIBP BP-Mean 118 Respiration from ECG 19 SpO2 96 I&O: 12/09/18 12/10/18 12/11/18 06:59 06:59 06:59 Intake Total 3120 1830 540 Output Total 2350 Balance 770 1830 540 Result Diagrams: 12/09/18 08:50 12/09/18 05:23 Dx/Plan (1) Mesenteric ischemia Code(s): K55.9 - VASCULAR DISORDER OF INTESTINE, UNSPECIFIED Status: Acute Comment: Improved, s/p surgery x 2, tolerating diet. 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 Plan to transition to warfarin when there are no plans for further surgery. (3) HTN (hypertension) Code(s): I10 - ESSENTIAL (PRIMARY) HYPERTENSION Status: Chronic Comment: controlled (4) Hypokalemia Code(s): E87.6 - HYPOKALEMIA Status: Resolved - Plan PT/OT, out of bed/ambulate * . 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 She then received Bioten (hormonal) pellets in may in [place]. She also reports having numbness in front and back of left thigh, and had EMG/ENG studies two weeks ago. Also had MRI spine at [facility]. Will obtain reports of the tests, in case they can shed light on her current presentation. Pt also having a coagulation workup through hematology dept here. Review of Systems - Review of Systems Respiratory: negative: Cough, Shortness of Breath, SOB with Excertion, Pleuritic Pain, Wheezing Cardiovascular: negative: chest pain, palpitations, orthopnea, paroxysmal nocturnal dyspnea, edema, light headedness - Medications/Allergies Allergies/Adverse Reactions: Allergies Allergy/AdvReac Type Severity Reaction Status Date / Time adhesive tape Allergy Verified 09/15/17 12:53 amoxicillin [From Augmentin] Allergy Verified 09/15/17 12:53 ciprofloxacin [From Cipro] Allergy Verified 09/15/17 12:53 clavulanic acid Allergy Verified 09/15/17 12:53 [From Augmentin] prednisone Allergy Verified 09/15/17 12:53 Medications: Current Medications Acetaminophen (Tylenol) 980 mg VA Q6H PRN PRN Reason: Pain Acetaminophen (Tylenol) 1,000 mg PO Q6H PRN PRN Reason: Moderate to Severe Pain (6-10) Last Admin: 12/06/18 08:18 Dose: 1,000 mg Acetaminophen (Tylenol) 500 mg PO Q6H PRN PRN Reason: Pain 1-5 Hydrocodone Bitart/Acetaminophen ([place] 10/325) 1 tab PO Q4H PRN PRN Reason: Pain 1-4 Last Admin: 12/09/18 05:16 Dose: 1 tab Hydrocodone Bitart/Acetaminophen ([place] 10/325) 2 tab PO Q4H PRN PRN Reason: Pain 5-10 Last Admin: 12/10/18 11:25 Dose: 2 tab Amlodipine Besylate (Norvasc) 10 mg PO DAILY [facility] Last Admin: 12/10/18 09:18 Dose: 10 mg Enoxaparin Sodium (Lovenox) 90 mg SC 0900,2100 [facility] Last Admin: 12/10/18 09:18 Dose: 90 mg Fentanyl (Sublimaze) 50 mcg SLOW IVP Q1H PRN PRN Reason: .SEVERE PAIN Last Admin: 12/07/18 13:29 Dose: 50 mcg Sodium Chloride (Normal Saline 0.9%) 1,000 mls @ 75 mls/hr IV .[id number] [facility] Last Admin: 12/10/18 09:34 Dose: 1,000 mls Labetalol HCl (Normodyne) 20 mg SLOW IVP Q2H PRN PRN Reason: SBP GREATER THAN 160 Last Admin: 12/08/18 20:30 Dose: 20 mg Lisinopril (Zestril) 10 mg PO BID [facility] Last Admin: 12/10/18 09:18 Dose: 10 mg Loperamide HCl (Imodium) 2 mg PO PRN PRN PRN Reason: Diarrhea/Loose Stools Melatonin (Melatonin) 3 mg PO HS PRN PRN Reason: Insomnia Last Admin: 12/09/18 22:40 Dose: 3 mg Morphine Sulfate (Morphine) 2 mg SLOW IVP Q1H PRN PRN Reason: BREAKTHROUGH PAIN/Agitation Stop: 12/31/18 21:07 Last Admin: 12/07/18 03:07 Dose: 2 mg Morphine Sulfate (Morphine) 4 mg SLOW IVP Q1H PRN PRN Reason: Pain Last Admin: 12/07/18 10:17 Dose: 4 mg Discontinue Previous Narcotic Pain Medications And Benzodiazepines 1 each FS .ONE [facility] Stop: 12/31/18 21:07 Ondansetron HCl (Zofran) 4 mg IVP Q6H PRN PRN Reason: Nausea/Vomiting Last Admin: 12/10/18 11:24 Dose: 4 mg Pantoprazole Sodium (Protonix) 40 mg IVP DAILY [facility] Last Admin: 12/10/18 09:19 Dose: 40 mg Saccharomyces Boulardii (Florastor) 250 mg PO DAILY [facility] Last Admin: 12/10/18 09:18 Dose: 250 mg Scopolamine (Transderm Scop) 1.5 mg TOP Q3D [facility] Last Admin: 12/10/18 09:19 Dose: 1.5 mg Sodium Chloride (Flush - Normal Saline) 10 ml IVF Q12HR [facility] Last Admin: 12/10/18 09:19 Dose: 10 ml Sodium Chloride (Flush - Normal Saline) 10 ml IVF PRN PRN PRN Reason: Saline Flush Sodium Chloride (Normal Saline Pf) 10 ml FS PRN PRN PRN Reason: RECONSTITUTION Last Admin: 12/01/18 21:40 Dose: 10 ml Tramadol HCl (Ultram) 50 mg PO Q4H PRN PRN Reason: Pain Last Admin: 12/10/18 09:33 Dose: 50 mg Trazodone HCl (Desyrel) 50 mg PO HS PRN PRN Reason: Insomnia Last Admin: 12/09/18 22:40 Dose: 50 mg
[2018-12-10] MEDS: traZODone HCl 50 MG TAB PO PRN (22:53)
[2018-12-10] MEDS: Melatonin 3 MG TAB PO PRN (22:53)
[2018-12-11] MEDS: HYDROcodone/Acetaminophen 10/325 mg Tablet PO PRN ×4 (04:20→21:24)
[2018-12-11] MEDS: Sodium Chloride 0.9% 1,000 ML IV SCH ×2 (04:21→09:13)
[2018-12-11 04:55] LABS: #Basophils 0.1 thou/uL (0.0-0.2); #Eosinphils 0.8 thou/uL (0.0-0.7); #Lymphocytes 2.7 thou/uL (1.20-3.40); #Monocytes 1.5 thou/uL (0.11-0.59); %Basophils 0.7 % (0.0-1.0); %Eosinophils 4.8 % (0.0-10.0); %Lymphocytes 15.8 % (21.0-51.0); %Monocytes 8.6 % (0.0-10.0); %Neutrophils 70.1 % (42.0-75.0); Hemoglobin 9.2 g/dL (12.0-16.0); Mean Corpuscular HGB CONC 30.7 g/dL (32.0-36.0); Mean Corpuscular Hemoglobin 26.6 pg (27.0-31.0); Mean Corpuscular Volume 86.6 fL (78.0-98.0); Platelet Count 470 thou/uL (130-400); RBC Distribution Width 15.6 % (11.5-14.5); Red Blood Cell (RBC) Count 3.46 mill/uL (4.20-5.40); White Blood Cell (WBC) Count 17.2 thou/uL (4.8-10.8)
[2018-12-11 05:12] LABS: Anion Gap 10 mmol/L (10-20); BUN (Urea Nitrogen) 10 mg/dL (9.8-20.1); Calc. Creatinine Clearance 189 mL/min (70-130); Calcium 8.6 mg/dL (7.8-10.44); Carbon Dioxide 29 mmol/L (22-29); Chloride 102 mmol/L (98-107); Estimated GFR-MDRD Greater than 90; Glucose 96 mg/dL (70-105); Potassium 3.7 mmol/L (3.5-5.1); Sodium 137 mmol/L (136-145)
[2018-12-11] MEDS: Amlodipine 10 MG TAB PO SCH (09:11)
[2018-12-11] MEDS: Saccharomyces boulardii 250 MG CAP PO SCH (09:11)
[2018-12-11] MEDS: Enoxaparin Sodium 100 MG/ML SYRINGE SC SCH ×2 (09:12→21:20)
[2018-12-11] MEDS: Lisinopril 10 MG TAB PO SCH ×2 (09:12→21:21)
[2018-12-11] MEDS: Pantoprazole 40 MG VIAL IVP SCH (09:12)
[2018-12-11] MEDS ORDERED: traMADol HCl 50 MG TAB PO PRN (14:15)
--- NOTE | 2018-12-11 15:07 | PRG ---
DATE OF SERVICE: 12/11/2018 SUBJECTIVE: Sol Mckeon is doing well today. She is tolerating her diet. Her nausea has greatly improved. Her abdomen is soft, nontender. Her surgical wound looks good. There is no evidence of infection. OBJECTIVE: LUNGS: Clear to auscultation. CARDIAC: Regular rate and rhythm. No murmur or gallop. ABDOMEN: Soft. Bowel sounds present, plus bowel movements. VITAL SIGNS: Temperature 98.7 degrees, heart rate 83, and blood pressure 124/82. LABORATORY DATA: White count 17, hemoglobin 9.2. Basic metabolic profile is normal. 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 Last received, October 12. Scheduled to have another one to be pellets placed in December, although she will not do this given that she has had this thromboembolic event. She has suffered splenic infarcts, occlusive thrombus, small eccentric intraluminal thrombus involving the infrarenal aorta. This CAT scan was 12/01/2018. The patient is 8 days postoperatively. She is convalescing. Her white counts slightly elevated probably due to splenic infarcts, and I would not worry about this. I do not think she needs antibiotics. Her temperature is 98.7 degrees, heart rate 83, and blood pressure 124/82. I expect her white count to improve over time and we will check this as an outpatient. The patient had a thromboembolic event, possibly related to her pellets, and there is no further intervention necessary for this. There are no pellets to be removed. This will dissipate with time. She will not have further injections. We would recommend she is to follow up with Hematology as an outpatient to discuss the duration of anticoagulation. Hematology will need to interpret her hypercoagulable state studies. Her complement 3 and 4 are normal. Anticardiolipin IG antibody G and A are normal. The patient is ready to be discharged in the next day or 2 pending her diet tolerance. The patient can be started on anticoagulation at the time we sent home with bridging Lovenox injections. She should follow up by Dr. Gilliam in the next 2 to 3 weeks. Job ID: [id number]
--- NOTE | 2018-12-11 15:29 | PDOC.PN ---
- Subjective Encounter Start Date: 12/11/18 Encounter Start Time: 12:00 Subjective: pt up in chair no complains - Objective Resuscitation Status - Order Detail: 12/01/18 23:37 Resuscitation Status Routine Resuscitation Status: FULL: Full Resuscitation Vital Signs & Weight: Vital Signs (12 hours) Temp Pulse Resp BP BP BP Pulse Ox 12/11/18 11:24 98.7 F 83 18 124/82 94 L 12/11/18 09:12 123/78 12/11/18 09:11 87 123/78 12/11/18 08:55 95 12/11/18 07:17 98.4 F 87 16 123/78 95 12/11/18 04:00 98.6 F 71 16 130/82 94 L Weight Admit Weight 205 lb 7.533 oz Weight 205 lb 7.533 oz Most Recent Monitor Data Heart Rate from ECG 78 NIBP 150/102 NIBP BP-Mean 118 Respiration from ECG 19 SpO2 96 I&O: 12/10/18 12/11/18 12/12/18 06:59 06:59 06:59 Intake Total 1830 3380 730 Balance 1830 3380 730 Result Diagrams: 12/11/18 04:40 12/11/18 04:40 Phys Exam - Physical Examination Respiratory: no wheezing, no rales, no rhonchi, wheezing present, clear to auscultation bilateral Cardiovascular: RRR, no significant murmur, no rub, gallop, irregular Gastrointestinal: soft, non-tender, no distention, positive bowel sounds Musculoskeletal: no edema, pulses present, edema present Dx/Plan (1) Aortic thrombus Code(s): I74.10 - EMBOLISM AND THROMBOSIS OF UNSPECIFIED PARTS OF AORTA Status : Acute Comment: on therapeutic Lovenox. Plan to transition to warfarin when there are no plans for further surgery. (2) Mesenteric ischemia Code(s): K55.9 - VASCULAR DISORDER OF INTESTINE, UNSPECIFIED Status: Acute Comment: Improved, s/p surgery x 2, tolerating diet. (3) HTN (hypertension) Code(s): I10 - ESSENTIAL (PRIMARY) HYPERTENSION Status: Chronic Comment: controlled (4) Hypokalemia Code(s): E87.6 - HYPOKALEMIA Status: Resolved - Plan pt on AC -: pt is on hormone pellets, she will get more information from her clinic who -: inserted. will start pt on coumadin * . Review of Systems - Review of Systems Respiratory: negative: Cough, Dry, Shortness of Breath, Hemoptysis, SOB with Excertion, Pleuritic Pain, Sputum, Wheezing Cardiovascular: negative: chest pain, palpitations, orthopnea, paroxysmal nocturnal dyspnea, edema, light headedness, other - Medications/Allergies Allergies/Adverse Reactions: Allergies Allergy/AdvReac Type Severity Reaction Status Date / Time adhesive tape Allergy Verified 09/15/17 12:53 amoxicillin [From Augmentin] Allergy Verified 09/15/17 12:53 ciprofloxacin [From Cipro] Allergy Verified 09/15/17 12:53 clavulanic acid Allergy Verified 09/15/17 12:53 [From Augmentin] prednisone Allergy Verified 09/15/17 12:53 Medications: Current Medications Acetaminophen (Tylenol) 1,000 mg PO Q6H PRN PRN Reason: Moderate to Severe Pain (6-10) Last Admin: 12/06/18 08:18 Dose: 1,000 mg Acetaminophen (Tylenol) 500 mg PO Q6H PRN PRN Reason: Pain 1-5 Hydrocodone Bitart/Acetaminophen ([place] 10/325) 1 tab PO Q4H PRN PRN Reason: Pain 1-4 Last Admin: 12/09/18 05:16 Dose: 1 tab Hydrocodone Bitart/Acetaminophen ([place] 10/325) 2 tab PO Q4H PRN PRN Reason: Pain 5-10 Last Admin: 12/11/18 15:19 Dose: 2 tab Amlodipine Besylate (Norvasc) 10 mg PO DAILY [facility] Last Admin: 12/11/18 09:11 Dose: 10 mg Enoxaparin Sodium (Lovenox) 90 mg SC 0900,2100 [facility] Last Admin: 12/11/18 09:12 Dose: 90 mg Ibuprofen (Motrin) 600 mg PO Q6H PRN PRN Reason: Pain Labetalol HCl (Normodyne) 20 mg SLOW IVP Q2H PRN PRN Reason: SBP GREATER THAN 160 Last Admin: 12/08/18 20:30 Dose: 20 mg Lisinopril (Zestril) 10 mg PO BID [facility] Last Admin: 12/11/18 09:12 Dose: 10 mg Loperamide HCl (Imodium) 2 mg PO PRN PRN PRN Reason: Diarrhea/Loose Stools Melatonin (Melatonin) 3 mg PO HS PRN PRN Reason: Insomnia Last Admin: 12/10/18 22:53 Dose: 3 mg Morphine Sulfate (Morphine) 2 mg SLOW IVP Q1H PRN PRN Reason: BREAKTHROUGH PAIN/Agitation Stop: 12/31/18 21:07 Last Admin: 12/07/18 03:07 Dose: 2 mg Morphine Sulfate (Morphine) 4 mg SLOW IVP Q1H PRN PRN Reason: Pain Last Admin: 12/07/18 10:17 Dose: 4 mg Discontinue Previous Narcotic Pain Medications And Benzodiazepines 1 each FS .ONE [facility] Stop: 12/31/18 21:07 Ondansetron HCl (Zofran) 4 mg IVP Q6H PRN PRN Reason: Nausea/Vomiting Last Admin: 12/10/18 11:24 Dose: 4 mg Pantoprazole Sodium (Protonix) 40 mg IVP DAILY [facility] Last Admin: 12/11/18 09:12 Dose: 40 mg Saccharomyces Boulardii (Florastor) 250 mg PO DAILY [facility] Last Admin: 12/11/18 09:11 Dose: 250 mg Scopolamine (Transderm Scop) 1.5 mg TOP Q3D [facility] Last Admin: 12/10/18 09:19 Dose: 1.5 mg Sodium Chloride (Flush - Normal Saline) 10 ml IVF Q12HR [facility] Last Admin: 12/11/18 09:12 Dose: 10 ml Sodium Chloride (Flush - Normal Saline) 10 ml IVF PRN PRN PRN Reason: Saline Flush Sodium Chloride (Normal Saline Pf) 10 ml FS PRN PRN PRN Reason: RECONSTITUTION Last Admin: 12/01/18 21:40 Dose: 10 ml Tramadol HCl (Ultram) 50 mg PO Q4H PRN PRN Reason: Pain Last Admin: 12/10/18 14:10 Dose: 50 mg Tramadol HCl (Ultram) 100 mg PO Q6H PRN PRN Reason: Pain Trazodone HCl (Desyrel) 50 mg PO HS PRN PRN Reason: Insomnia Last Admin: 12/10/18 22:53 Dose: 50 mg
[2018-12-11] MEDS: Warfarin Sodium 5 MG TAB PO SCH (17:53)
[2018-12-11 22:07] LABS: Activated Protein C Resistance 2.3 ratio (.)
[2018-12-11] MEDS: Melatonin 3 MG TAB PO PRN (22:12)
[2018-12-11] MEDS: traZODone HCl 50 MG TAB PO PRN (22:12)
[2018-12-12] MEDS: HYDROcodone/Acetaminophen 10/325 mg Tablet PO PRN ×3 (06:16→20:11)
[2018-12-12] MEDS: Ondansetron PF 4 MG/2 ML Vial IVP PRN (07:56)
[2018-12-12] MEDS: Amlodipine 10 MG TAB PO SCH (07:57)
[2018-12-12] MEDS: Lisinopril 10 MG TAB PO SCH ×2 (07:57→20:11)
[2018-12-12] MEDS: Pantoprazole 40 MG VIAL IVP SCH (07:58)
[2018-12-12] MEDS: Saccharomyces boulardii 250 MG CAP PO SCH (07:58)
[2018-12-12] MEDS: Enoxaparin Sodium 100 MG/ML SYRINGE SC SCH ×2 (07:59→20:11)
[2018-12-12 10:37] LABS: #Basophils 0.1 thou/uL (0.0-0.2); #Eosinphils 0.5 thou/uL (0.0-0.7); #Monocytes 1.1 thou/uL (0.11-0.59); #Neutrophils 12.8 thou/uL (1.40-6.50); %Basophils 0.6 % (0.0-1.0); %Eosinophils 3.2 % (0.0-10.0); %Lymphocytes 11.9 % (21.0-51.0); %Monocytes 6.4 % (0.0-10.0); %Neutrophils 77.8 % (42.0-75.0); Hemoglobin 9.8 g/dL (12.0-16.0); Mean Corpuscular HGB CONC 30.8 g/dL (32.0-36.0); Mean Corpuscular Hemoglobin 26.6 pg (27.0-31.0); Mean Corpuscular Volume 86.1 fL (78.0-98.0); Mean Platelet Volume 7.2 fL (7.4-10.4); Platelet Count 614 thou/uL (130-400); RBC Distribution Width 15.7 % (11.5-14.5); Red Blood Cell (RBC) Count 3.69 mill/uL (4.20-5.40); White Blood Cell (WBC) Count 16.4 thou/uL (4.8-10.8)
--- NOTE | 2018-12-12 14:04 | PDOC.HOSPP ---
- Subjective Subjective: pt up in bed did have some nausea and dizziness earlier today. - Objective Vital Signs & Weight: Vital Signs (12 hours) Temp Pulse Resp BP Pulse Ox 12/12/18 12:06 98.9 F 98 14 144/89 H 97 12/12/18 08:09 98.2 F 89 20 143/87 H 98 12/12/18 03:26 98.4 F 79 16 109/74 97 Weight Admit Weight 205 lb 7.533 oz Weight 205 lb 7.533 oz Most Recent Monitor Data Heart Rate from ECG 78 NIBP 150/102 NIBP BP-Mean 118 Respiration from ECG 19 SpO2 96 I&O: 12/11/18 12/12/18 12/13/18 06:59 06:59 06:59 Intake Total 3380 2585 Balance 3380 2585 Result Diagrams: 12/12/18 10:22 12/11/18 04:40 ROS - Review of Systems All systems: All other ROS were reviewed and found negative. Respiratory: denies: cough, dry, shortness of breath, hemoptysis, SOB with excertion, pleuritic pain, sputum, wheezing, other Cardiovascular: denies: chest pain, palpitations, orthopnea, paroxysmal noc. dyspnea, edema, light headedness, other Gastrointestinal: denies: nausea, vomitting, abdominal pain, diarrhea, constipation, melena, hematochezia, other - Medication Medications: Active Medications Generic Name Dose Route Start Last Admin Trade Name Freq PRN Reason Stop Dose Admin Acetaminophen 1,000 mg 12/05/18 13:52 12/06/18 08:18 Tylenol PO 1,000 mg Q6H PRN Administration Moderate to Severe Pain (6-10) Hydrocodone Bitart/Acetaminophen 1 tab 12/07/18 13:13 12/09/18 05:16 [place] 10/325 PO 1 tab Q4H PRN Administration Pain 1-4 Hydrocodone Bitart/Acetaminophen 2 tab 12/07/18 13:14 12/12/18 13:18 [place] 10/325 PO 2 tab Q4H PRN Administration Pain 5-10 Amlodipine Besylate 10 mg 12/09/18 09:00 12/12/18 07:57 Norvasc PO 10 mg DAILY [facility] Administration Enoxaparin Sodium 90 mg 12/02/18 09:00 12/12/18 07:59 Lovenox SC 90 mg 0900,2100 [facility] Administration Labetalol HCl 20 mg 12/03/18 13:32 12/08/18 20:30 Normodyne SLOW IVP 20 mg Q2H PRN Administration SBP GREATER THAN 160 Lisinopril 10 mg 12/07/18 21:00 12/12/18 07:57 Zestril PO 10 mg BID [facility] Administration Melatonin 3 mg 12/05/18 18:09 12/11/18 22:12 Melatonin PO 3 mg HS PRN Administration Insomnia Morphine Sulfate 4 mg 12/03/18 11:45 12/07/18 10:17 Morphine SLOW IVP 4 mg Q1H PRN Administration Pain Ondansetron HCl 4 mg 12/05/18 13:52 12/12/18 07:56 Zofran IVP 4 mg Q6H PRN Administration Nausea/Vomiting Pantoprazole Sodium 40 mg 12/02/18 09:00 12/12/18 07:58 Protonix IVP 40 mg DAILY [facility] Administration Saccharomyces Boulardii 250 mg 12/07/18 09:00 12/12/18 07:58 Florastor PO 250 mg DAILY [facility] Administration Scopolamine 1.5 mg 12/07/18 10:00 12/10/18 09:19 Transderm Scop TOP 1.5 mg Q3D [facility] Administration Sodium Chloride 10 ml 12/01/18 21:00 12/12/18 08:02 Flush - Normal Saline IVF 10 ml Q12HR [facility] Administration Sodium Chloride 10 ml 12/01/18 21:05 12/01/18 21:40 Normal Saline Pf FS 10 ml PRN PRN Administration RECONSTITUTION Tramadol HCl 50 mg 12/05/18 13:52 12/10/18 14:10 Ultram PO 50 mg Q4H PRN Administration Pain Trazodone HCl 50 mg 12/04/18 19:58 12/11/18 22:12 Desyrel PO 50 mg HS PRN Administration Insomnia Warfarin Sodium 5 mg 12/11/18 17:00 12/11/18 17:53 Coumadin PO 5 mg 1700 [facility] Administration - Exam Heart: RRR, no murmur, no gallops, no rubs, normal peripheral pulses, irregular , diminshed peripheral pulses, murmur present, II/IV, III/IV Respiratory: CTAB, no wheezes, no rales, no ronchi, normal chest expansion, no tachypnea, normal percussion, rales, rhonchi, tachypneic, wheezes Gastrointestinal: soft, non-tender, non-distended, normal bowel sounds, no palpable masses, no hepatomegaly, no splenomegaly, no bruit, tender to palpation , distended, diminished bowl sounds, voluntary guarding Hosp A/P (1) Aortic thrombus Code(s): I74.10 - EMBOLISM AND THROMBOSIS OF UNSPECIFIED PARTS OF AORTA Status : Acute (2) Mesenteric ischemia Code(s): K55.9 - VASCULAR DISORDER OF INTESTINE, UNSPECIFIED Status: Acute (3) HTN (hypertension) Code(s): I10 - ESSENTIAL (PRIMARY) HYPERTENSION Status: Chronic (4) Hypokalemia Code(s): E87.6 - HYPOKALEMIA Status: Resolved - Plan will continue coumadin and lovonox for now. her wbc is trending down, pt off abx. she is on on hormone pellets which i discussed with obgyn and i agree that would not be the solo cause of her significant arterial clots. she is due for replacement in december an i have advised her against it. she agrees. possible discharge in am. Mother had a stroke in her 50's unknown source.
--- NOTE | 2018-12-12 14:26 | PRG ---
DATE OF SERVICE: 12/12/2018 SUBJECTIVE: Sol Mckeon is doing well today. She is tolerating her diet. She has had a bowel movement. She had a bad morning, this morning having some abdominal discomfort, but feels better now. She had a good day yesterday. She states she did have one episode where she felt weak in her legs, but otherwise she has been ambulating and doing well except for these sporadic episodes. Temperature 98.9 degrees, heart rate 98, and blood pressure 144/89. White count this morning is 16.4 and hemoglobin 9.8, differential unremarkable. Basic metabolic profile is normal. She is now on Coumadin and receiving Lovenox. I have talked to her yesterday regarding her estradiol and testosterone pellets and she is due for another placement in December, but she will not have this done considering the risk of estrogen in her thrombotic event. She has seen Dr. Nick in the past and will follow up him as an outpatient as far as duration of anticoagulation and causation of this event. Echocardiogram is normal. OBJECTIVE: LUNGS: Clear to auscultation. CARDIAC: Regular rate and rhythm. No murmur or gallop. ABDOMEN: Soft and nontender. Wound is well healed. ASSESSMENT AND PLAN: 1. Leukocytosis. 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 2. Thrombotic event. Continue anticoagulation. Bridge with Lovenox until therapeutic on Coumadin. Duration of anticoagulation pending to be decided at a later date as an outpatient with Hematology. Follow up as an outpatient with Dr. Nick. She has leukocytosis, which I am not concerned about. I would not obtain further CBCs. I would not give her antibiotics. She is clinically doing well. I think. This is more inflammatory and possibly related to multiple wedge infarcts of the spleen. The patient possibly can be discharged home in the next 24 hours with Lovenox until therapeutic on Coumadin. Outpatient anticoagulation followup per Medical. From a surgical standpoint, she is doing well. 3. The patient has chronic back pain. This has been present prior to this event. She continues to have intermittent low back pain. She had received an injection for this lumbar pain in the past. She has had past radiation to her buttocks and legs and is having that intermittently, but this is a chronic problem and not acute. She has had a prior MRI noting a bulging disk, but otherwise no acute further intervention is needed. Job ID: [id number]
[2018-12-12] MEDS: Warfarin Sodium 5 MG TAB PO SCH (17:42)
[2018-12-13] MEDS: HYDROcodone/Acetaminophen 10/325 mg Tablet PO PRN ×3 (01:15→15:18)
[2018-12-13 06:46] LABS: #Basophils 0.1 thou/uL (0.0-0.2); #Eosinphils 0.6 thou/uL (0.0-0.7); #Monocytes 1.4 thou/uL (0.11-0.59); #Neutrophils 9.1 thou/uL (1.40-6.50); %Basophils 0.9 % (0.0-1.0); %Eosinophils 4.6 % (0.0-10.0); %Lymphocytes 15.3 % (21.0-51.0); %Monocytes 10.3 % (0.0-10.0); %Neutrophils 68.9 % (42.0-75.0); Hemoglobin 8.9 g/dL (12.0-16.0); Mean Corpuscular HGB CONC 30.9 g/dL (32.0-36.0); Mean Corpuscular Hemoglobin 26.9 pg (27.0-31.0); Mean Corpuscular Volume 87.1 fL (78.0-98.0); Mean Platelet Volume 6.9 fL (7.4-10.4); Platelet Count 647 thou/uL (130-400); RBC Distribution Width 15.7 % (11.5-14.5); Red Blood Cell (RBC) Count 3.29 mill/uL (4.20-5.40); White Blood Cell (WBC) Count 13.2 thou/uL (4.8-10.8)
[2018-12-13 06:48] LABS: Prothrombin Time 13.6 SEC (12.0-14.7)
[2018-12-13 07:04] LABS: Anion Gap 10 mmol/L (10-20); BUN (Urea Nitrogen) 8 mg/dL (9.8-20.1); Calc. Creatinine Clearance 182 mL/min (70-130); Calcium 8.7 mg/dL (7.8-10.44); Carbon Dioxide 29 mmol/L (22-29); Chloride 102 mmol/L (98-107); Estimated GFR-MDRD Greater than 90; Glucose 100 mg/dL (70-105); Potassium 3.5 mmol/L (3.5-5.1); Sodium 137 mmol/L (136-145)
[2018-12-13 07:23] VITALS: TEMP 98.3
[2018-12-13] MEDS: Ibuprofen 600 MG TAB PO PRN ×2 (08:55→16:43)
[2018-12-13] MEDS: Amlodipine 10 MG TAB PO SCH (08:55)
[2018-12-13] MEDS: Lisinopril 10 MG TAB PO SCH (08:56)
[2018-12-13] MEDS: Saccharomyces boulardii 250 MG CAP PO SCH (08:56)
[2018-12-13] MEDS: Scopolamine 1.5 mg/72 hour Patch TOP SCH (08:56)
[2018-12-13] MEDS: Enoxaparin Sodium 100 MG/ML SYRINGE SC SCH (09:06)
[2018-12-13] MEDS: Pantoprazole 40 MG VIAL IVP SCH ×2 (09:09→10:18)
--- NOTE | 2018-12-13 10:14 | PRG ---
DATE OF SERVICE: 12/13/2018 SUBJECTIVE: She is doing well today. She is tolerating diet. She had a much better night. She is ambulating without problems. She has a chronic back pain, for which she takes [place] at home for. Her abdominal pain is minimal. OBJECTIVE: LUNGS: Clear to auscultation. CARDIAC: Regular rate and rhythm. No murmur or gallop. ABDOMEN: Soft, nontender. VITAL SIGNS: Temperature is 98.3 degrees, blood pressure 137/85, respiratory rate 18, heart rate 75. LABORATORY DATA: This morning, white count is 13, hemoglobin 8.9. Basic metabolic profile is normal. ASSESSMENT AND PLAN: Doing well. Her INR is subtherapeutic. She continues on therapeutic Lovenox. At this point, her white count is on the decline. She can be discharged to home. She can take Lovenox at home until her INR is therapeutic. Medical Service will arrange outpatient INR followup. She should follow up with Dr. Gilliam in 2 to 3 weeks. She should follow up with Dr. Nick to evaluate need for duration of anticoagulation. Activity and diet as tolerated. No lifting over 25 to 30 pounds. Job ID: [id number]
[2018-12-13 15:06] VITALS: BP 120/76
[2018-12-13] MEDS ORDERED: Enoxaparin Sodium 100 MG/ML SYRINGE SC SCH ×2 (17:00→21:00)
[2018-12-13] MEDS ORDERED: Warfarin Sodium 5 MG TAB PO SCH (17:00)
== END 2018-12-13 18:18 | disposition home or self-care (01) | DRG 329 ==
LOC: ERS 15:15 → SDC 17:40 → CCU 18:00 → SURG A 12-04 09:12
PROVIDERS: ADMIT Family Medicine; ATTEND Family Medicine
PROC: 0DB84ZZ Excision of Small Intestine, Percutaneous Endoscopic Approach (ICD-10-PCS; principal; 2018-12-01)
PROC: 5A1945Z Respiratory Ventilation, 24-96 Consecutive Hours (ICD-10-PCS; 2018-12-01)
PROC: 0DBB4ZZ Excision of Ileum, Percutaneous Endoscopic Approach (ICD-10-PCS; 2018-12-03)
PROC: 3E0M45Z Introduction of Adhesion Barrier into Peritoneal Cavity, Percutaneous Endoscopic Approach (ICD-10-PCS; 2018-12-03)
DX: K55.019 Acute (reversible) ischemia of small intestine, extent unspecified (principal); J96.00 Acute respiratory failure, unspecified whether with hypoxia or hypercapnia; K52.1 Toxic gastroenteritis and colitis; I74.09 Other arterial embolism and thrombosis of abdominal aorta; E03.9 Hypothyroidism, unspecified; I10 Essential (primary) hypertension; I95.9 Hypotension, unspecified; E86.9 Volume depletion, unspecified; D72.825 Bandemia; D73.5 Infarction of spleen; E87.6 Hypokalemia; T36.95XA Adverse effect of unspecified systemic antibiotic, initial encounter; G89.29 Other chronic pain; M54.9 Dorsalgia, unspecified; Z90.49 Acquired absence of other specified parts of digestive tract; Z90.710 Acquired absence of both cervix and uterus; Z90.721 Acquired absence of ovaries, unilateral; Z88.1 Allergy status to other antibiotic agents; Z88.8 Allergy status to other drugs, medicaments and biological substances
CPT/HCPCS: 36415; 36416; 71045; 74177; 80048; 81240; 81241; 81270; 82805; 83090; 83735; 84439; 84443; 84484; 85025; 85240; 85300; 85303; 85305; 85307; 85379; 85598; 85610; 85730; 86147; 86160; 86850; 86900; 86901; 87045; 87046; 87324; 87449; 87899; 88184; 88307; 93005; 93010; 93306; 93970; 94002; 94003; 96361; 96365; 96372; 96375; 99292; C9113; J0131; J0360; J0670; J1170; J1650; J2001; J2060; J2185; J2270; J2370; J2405; J2704; J3010; J3475; J3480; J3490; J8597; P9047; Q9966

== ENCOUNTER 2018-12-14 20:55 | Emergency (ER) | payer OTHER ==
[2018-12-14] MEDS ORDERED: HYDROcodone/Acetaminophen 10/325 mg Tablet ONE (21:37)
[2018-12-14 21:46] LABS: #Basophils 0.1 thou/uL (0.0-0.2); #Eosinphils 0.3 thou/uL (0.0-0.7); #Lymphocytes 2.5 thou/uL (1.20-3.40); #Monocytes 1.3 thou/uL (0.11-0.59); %Basophils 0.7 % (0.0-1.0); %Eosinophils 1.7 % (0.0-10.0); %Lymphocytes 16.4 % (21.0-51.0); %Monocytes 8.8 % (0.0-10.0); %Neutrophils 72.4 % (42.0-75.0); Hemoglobin 10.3 g/dL (12.0-16.0); Mean Corpuscular HGB CONC 32.3 g/dL (32.0-36.0); Mean Corpuscular Hemoglobin 27.3 pg (27.0-31.0); Mean Corpuscular Volume 84.6 fL (78.0-98.0); Mean Platelet Volume 7.1 fL (7.4-10.4); Platelet Count 935 thou/uL (130-400); Red Blood Cell (RBC) Count 3.75 mill/uL (4.20-5.40); White Blood Cell (WBC) Count 15.2 thou/uL (4.8-10.8)
[2018-12-14 21:46] LABS: INR-International Normal Ratio 1.4; Prothrombin Time 17.5 SEC (12.0-14.7)
[2018-12-14] MEDS ORDERED: Lorazepam 2 MG/ML VIAL ONE (21:49)
[2018-12-14 21:52] LABS: ALT (SGPT) 25 U/L (8-55); AST (SGOT) 14 U/L (5-34); Albumin 3.4 g/dL (3.5-5.0); Alkaline Phosphatase 149 U/L (40-150); Anion Gap 14 mmol/L (10-20); BUN (Urea Nitrogen) 12 mg/dL (9.8-20.1); Bilirubin, Total 0.2 mg/dL (0.2-1.2); Calc. Creatinine Clearance 0 mL/min (70-130); Calcium 9.3 mg/dL (7.8-10.44); Carbon Dioxide 26 mmol/L (22-29); Chloride 100 mmol/L (98-107); Estimated GFR-MDRD Greater than 90; Globulin 2.9 g/dL (2.4-3.5); Glucose 128 mg/dL (70-105); Potassium 3.8 mmol/L (3.5-5.1); Protein, Total 6.3 g/dL (6.0-8.3); Sodium 136 mmol/L (136-145)
--- NOTE | 2018-12-14 23:00 | CT ---
CTA CHEST WITH CONTRAST: 12/14/18 Multiplanar reconstructions and 3D postprocessing performed with angio protocol. INDICATIONS: Chest pain. FINDINGS: Pulmonary arteries show suboptimal opacification. There is no evidence of proximal pulmonary embolus. Thoracic aorta unremarkable. The lung scott show chronic parenchymal changes. No effusion or infiltrate identified. Mediastinum u nremarkable. Nonspecific hilar lymph nodes are noted. Images through the upper abdomen unremarkable. IMPRESSION: 1. No evidence of proximal pulmonary embolus. Suboptimal opacification limits evaluation of the distal pulmonary arteries. 2. No acute lung process identified. There are chronic parenchymal changes noted. POS: [facility]
== END 2018-12-15 00:25 | disposition home or self-care (01) ==
LOC: ERS 20:55
DX: M62.81 Muscle weakness (generalized) (principal); E78.5 Hyperlipidemia, unspecified; I10 Essential (primary) hypertension; Z79.899 Other long term (current) drug therapy
CPT/HCPCS: 36415; 71275; 80053; 83880; 84484; 85025; 85610; 93005; 96374; J2060

== ENCOUNTER 2018-12-30 19:11 | Inpatient (IN) | payer OTHER ==
[~2018-12-30 19:11] MED LIST changes: -ISOVUE-370 76%-LOCM 1 ML ONE; +Iopamidol 370 76% 100 ML VIAL ONE; -Lidocaine 1% PF 5 ML VIAL ONE; -Ondansetron PF 4 MG/2 ML Vial ONE; -PHENYLEPHRINE-NS 100 MCG/ML 10 ML SYRINGE ONE; -Rocuronium Bromide 10 MG/ML (10ML VIAL) ONE; -Succinylcholine Chloride 20 MG/ML 10 ml SYRINGE FS ONE
[2018-12-30] MEDS ORDERED: Morphine 4 MG/ML VIAL ONE (19:30)
[2018-12-30] MEDS ORDERED: Ondansetron PF 4 MG/2 ML Vial ONE (19:31)
--- NOTE | 2018-12-30 20:13 | RAD ---
XR Abdomen 2 View/1 View Cxr History: Nausea and vomiting Comparison: Chest radiograph November 04, 2018 Findings: Mild atelectasis right lower lobe and left lower lobe. No pneumothorax. Air-fluid levels in the abdomen. No free air. Normal phi angle of the lap band. Impression: 1. No acute intrathoracic abnormality. 2. Few air-fluid levels on the decubitus view can be seen with ileus versus early obstruction.
[2018-12-30 20:18] LABS: #Basophils 0.1 thou/uL (0.0-0.2); #Eosinphils 0.2 thou/uL (0.0-0.7); #Lymphocytes 2.2 thou/uL (1.20-3.40); #Monocytes 1.1 thou/uL (0.11-0.59); #Neutrophils 14.2 thou/uL (1.40-6.50); %Basophils 0.8 % (0.0-1.0); %Eosinophils 0.9 % (0.0-10.0); %Lymphocytes 12.5 % (21.0-51.0); %Monocytes 6.3 % (0.0-10.0); %Neutrophils 79.4 % (42.0-75.0); Hemoglobin 11.7 g/dL (12.0-16.0); Mean Corpuscular HGB CONC 31.9 g/dL (32.0-36.0); Mean Corpuscular Hemoglobin 27.6 pg (27.0-31.0); Mean Corpuscular Volume 86.7 fL (78.0-98.0); Mean Platelet Volume 7.4 fL (7.4-10.4); Platelet Count 396 thou/uL (130-400); Red Blood Cell (RBC) Count 4.25 mill/uL (4.20-5.40); White Blood Cell (WBC) Count 17.9 thou/uL (4.8-10.8)
[2018-12-30 20:28] LABS: PTT 27.9 SEC (22.9-36.1)
[2018-12-30 20:29] LABS: INR-International Normal Ratio 1.4
[2018-12-30 20:34] LABS: ALT (SGPT) 18 U/L (8-55); AST (SGOT) 14 U/L (5-34); Alkaline Phosphatase 130 U/L (40-150); Anion Gap 12 mmol/L (10-20); BUN (Urea Nitrogen) 13 mg/dL (9.8-20.1); Bilirubin, Total 0.2 mg/dL (0.2-1.2); CK (CPK) 91 U/L (29-168); Calc. Creatinine Clearance 0 mL/min (70-130); Calcium 9.8 mg/dL (7.8-10.44); Carbon Dioxide 32 mmol/L (22-29); Chloride 99 mmol/L (98-107); Estimated GFR-MDRD Greater than 90; Glucose 150 mg/dL (70-105); Lipase 240 U/L (8-78); Potassium 3.4 mmol/L (3.5-5.1); Sodium 140 mmol/L (136-145)
[2018-12-30] MEDS ORDERED: Promethazine HCl 25 MG/ML VIAL ONE (20:39)
--- NOTE | 2018-12-30 20:42 | CT ---
CT ABDOMEN AND PELVIS WITH CONTRAST: HISTORY: History of recent splenic artery and splenic infarction with small bowel ischemia in October. Severe ab dominal pain. COMPARISON: 12/01/2018 TECHNIQUE: Multiple contiguous axial images were obtained in a CT of the abdomen and pelvis with contrast. [place] nal reformats were performed. FINDINGS: There is severe distention of the stomach and duodenum. There is an abrupt transition from distended duodenum to decompressed duodenum, as the duodenum crosses the midline. The cause for this abrupt t ransition is uncertain, as the superior mesenteric artery does not appear to occlude the duodenum in this location. The patient has a gastric band, with its tip at the gastroesophageal junction. Howev er, the gastroesophageal junction appears to have slid inferiorly and more to the midline than would be expected. This is in a different position than on the prior examination. There is an anastomotic staple line in the small bowel. The colon and residual small bowel are unremarkable. The liver, gallbladder, left kidney, adrenal glands, and pancreas are unremarkable. There is a large cyst at the lateral aspect of the spleen, measuring 13.1 cm in greatest dimension. This is likely s equela from the prior splenic infarction. No thrombus is seen within the superior mesenteric artery. No abdominal or pelvic lymphadenopathy is seen. Atherosclerotic calcifications are seen in the aor ta. Degenerative changes are seen in the spine. The abdominal wall soft tissues are unremarkable. IMPRESSION: 1. Distention of the stomach and duodenum, likely secondary to compression of the duodenum as it [employer] systems [employer] sses the midline, along the third to fourth portion. The cause for this obstruction is uncertain. 2. Inferior migration of the gastroesophageal junction. The cause for this migration may be the sig nificant distention of the stomach filling the cardiac portion of the stomach, causing the gastroesop hageal junction to be pushed downward. 3. 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 POS: [facility]
--- NOTE | 2018-12-30 21:33 | RAD ---
XR Abdomen 1 View/KUB History: Abdominal pain Comparison: CT same day Findings: Enteric tube side port just above the GE junction. Contrast within the renal collecting sys tems. Impression: Enteric tube side port just above the GE junction. Recommend advancing.
--- NOTE | 2018-12-30 21:52 | RAD ---
XR Abdomen 1 View/KUB History: Advanced Dobbhoff tube Comparison: Radiograph same day Findings: Enteric tube side port beyond the GE junction. Impression: Satisfactory position of the enteric tube.
[2018-12-30] MEDS ORDERED: Ondansetron PF 4 MG/2 ML Vial IVP PRN (23:33)
[2018-12-30] MEDS ORDERED: Ondansetron ODT 4 MG TAB SL PRN (23:33)
[2018-12-30 23:36] VITALS: BMI 26.4
[2018-12-31] MEDS: D5 1/2 NS w/20 mEq KCL 1,000 ML IV SCH ×5 (00:14→23:28)
[2018-12-31] MEDS: Morphine 4 MG/ML VIAL SLOW IVP PRN ×4 (00:18→08:50)
[2018-12-31] MEDS ORDERED: Guaifenesin DM 100-10/5 ML UDCUP PO PRN (08:57)
[2018-12-31] MEDS ORDERED: Bisacodyl 5 MG TAB PO PRN (08:57)
[2018-12-31] MEDS ORDERED: HYDROcodone/Acetaminophen 10/325 mg Tablet PO PRN (08:57)
[2018-12-31] MEDS ORDERED: Acetaminophen 325 MG TAB PO PRN (08:57)
[2018-12-31] MEDS ORDERED: Zolpidem Tartrate 5 MG TAB PO PRN (08:57)
[2018-12-31 09:07] LABS: Anion Gap 9 mmol/L (10-20); BUN (Urea Nitrogen) 10 mg/dL (9.8-20.1); Calc. Creatinine Clearance 135 mL/min (70-130); Carbon Dioxide 30 mmol/L (22-29); Chloride 104 mmol/L (98-107); Estimated GFR-MDRD Greater than 90; Glucose 110 mg/dL (70-105); Magnesium 1.9 mg/dL (1.6-2.6); Phosphorus 3.1 mg/dL (2.3-4.7); Potassium 4.1 mmol/L (3.5-5.1); Sodium 139 mmol/L (136-145)
[2018-12-31] MEDS: Lisinopril 10 MG TAB PO SCH ×2 (09:47→23:04)
[2018-12-31] MEDS: Amlodipine 10 MG TAB PO SCH (09:47)
[2018-12-31] MEDS: Gabapentin 300 MG CAP PO SCH ×3 (09:47→23:04)
--- NOTE | 2018-12-31 10:45 | RAD ---
EXAM: Upper GI HISTORY: Duodenal and gastric outlet obstruction COMPARISON: CT abdomen/pelvis 12/30/2018 FINDINGS: A Gastrografin contrast upper GI was performed. The patient has a gastric band with its tip at the gastroesophageal junction. An NG tube passes throu gh this band into the stomach. Gastrografin was given through the indwelling NG tube. No gastroesophageal reflux. The stomach is enlarged in size without mucosal abnormality or extrinsic compression. The contrast passes through the stomach into the duodenum without difficulty. The duodenum contains an area of narrowing along the third/fourth portion as it crosses the midline. There is a small area of narrowing seen in this location on CT. Contrast eventually passes through the area of narrowing into the small bowel which is normal in caliber. No obvious mass is seen in thi s location in the duodenum where the narrowing is present. IMPRESSION: High-grade duodenal obstruction is of uncertain significance.
[2018-12-31] MEDS: Morphine 4 MG/ML VIAL IV PRN ×5 (11:49→23:32)
[2018-12-31] MEDS ORDERED: Ketorolac Tromethamine 30 MG/ML VIAL IVP SCH (12:00)
--- NOTE | 2018-12-31 12:36 | PDOC.EVN ---
Event Note - Event Note Event Note: H&P #[id number]
[2018-12-31] MEDS: Acetaminophen 1,000 MG in Premix Bag 1 BAG IVPB SCH ×2 (13:47→21:31)
--- NOTE | 2018-12-31 16:13 | PRG ---
DATE OF SERVICE: 12/31/2018 SUBJECTIVE: This is a 53-year-old female, who come into evaluation of acute abdominal pain yesterday. The patient described she had severe abdominal pain accompanied with nausea and vomiting, who was found to have abdominal distension of stomach and duodenum. Patient had surgery history including appendectomy, hernia repair, ischemic small bowel resection [address] Gilliam . Patient was feeling better with NG tube in placed. The patient was having upper GI series with air contrast show high-grade duodenal obstruction of uncertain significance. She have not been passing gas or bowel movement since yesterday. She developed no fever or shortness of breath. Her vital signs stable. NG tube with green color and minimal amount suspect NG tube blocked. Dr. Munoz did clear the NG tube. After the NG tube was unclogged, the fluid come out from the NG tube is light green. OBJECTIVE: GENERAL: The patient is alert and awake. The patient is lying down comfortable in bed with no acute distress. VITAL SIGNS: Temperature 98, heart rate 78, respiratory rate 16, O2 saturation 95 on room air, and blood pressure 122/81. LUNGS: Clear bilaterally. HEART: Regular rate and rhythm. ABDOMEN: Soft and nondistended. Bowel sounds are normal. EXTREMITIES: Neurovascularly intact. Normal range of motion. NEUROLOGIC: No focal neurologic deficits. ASSESSMENT: 1. Duodenal obstruction of unknown cause. 2. History of ischemic bowel resection one month ago. PLAN: Continue supportive care. Continue bowel rest with NG tube and IV medication. Start PPI. The patient will continue to follow up for sign of high grade obstruction. Patient will be determined to go back to the OR or not by Dr Gilliam tomorrow Job ID: [id number] MTDD
[2018-12-31] MEDS ORDERED: MD-Gastroview 120 ML BOT ONE (16:22)
[2018-12-31] MEDS ORDERED: Warfarin Sodium 10 MG TAB PO SCH (17:00)
[2018-12-31] MEDS ORDERED: Pantoprazole 40 MG VIAL IVP SCH (21:00)
[2018-12-31] MEDS ORDERED: Chloraseptic Spray 180 ml Bottle PO PRN (22:27)
[2018-12-31] MEDS ORDERED: Lorazepam 2 MG/ML VIAL SLOW IVP SCH (22:30)
--- NOTE | 2019-01-01 01:28 | PRG ---
DATE OF SERVICE: SUBJECTIVE: Patient is currently on the surgical floor. She is a patient whom we are seeing in consultation for suspected small-bowel obstruction. The patient had recently undergone ischemic small bowel resection by Dr. Gilliam three weeks ago. Last night, she presented to the emergency department with a chief complaint of severe abdominal pain. She underwent evaluation and examination. It appeared that she had small-bowel obstruction versus gastric outlet obstruction. NG tube was placed in the emergency department and they reported they got 3 L of fluid out and an additional 1 L of fluid since being on the medicine floor. Since this morning, though her NG tube output is dramatically decreased, the patient reports feeling markedly better. Her chief complaint currently is just some anxiety about the setback and throat pain from the NG tube. Patient states that she is passing flatus. PHYSICAL EXAMINATION: VITAL SIGNS: Stable. Patient is afebrile. GENERAL: The patient is resting comfortably in bed. She is awake, alert, conversant, and appropriate. LUNGS: Clear to auscultation bilaterally. HEART: Regular rate and rhythm. ABDOMEN: Soft, nondistended with active bowel sounds. Patient's abdomen is nontender. ASSESSMENT AND PLAN: Suspected bowel obstruction, improved. PLAN: Plan will be to continue nasogastric tube. We will prescribe Chloraseptic spray for her throat pain. Encourage ambulation and reevaluate her in the morning. Dr. Gilliam will be back tomorrow. Patient will likely be transferred to her care regarding this consultation. Job ID: [id number]
[2019-01-01] MEDS: Morphine 4 MG/ML VIAL IV PRN ×8 (04:39→22:46)
[2019-01-01 04:57] LABS: #Basophils 0.1 thou/uL (0.0-0.2); #Lymphocytes 1.3 thou/uL (1.20-3.40); #Monocytes 0.5 thou/uL (0.11-0.59); #Neutrophils 3.9 thou/uL (1.40-6.50); %Basophils 0.9 % (0.0-1.0); %Eosinophils 14.5 % (0.0-10.0); %Lymphocytes 19.2 % (21.0-51.0); %Neutrophils 57.4 % (42.0-75.0); Hemoglobin 11.1 g/dL (12.0-16.0); Mean Corpuscular HGB CONC 30.3 g/dL (32.0-36.0); Mean Corpuscular Hemoglobin 26.7 pg (27.0-31.0); Mean Corpuscular Volume 88.1 fL (78.0-98.0); Mean Platelet Volume 8.2 fL (7.4-10.4); Platelet Count 290 thou/uL (130-400); RBC Distribution Width 16.1 % (11.5-14.5); Red Blood Cell (RBC) Count 4.17 mill/uL (4.20-5.40); White Blood Cell (WBC) Count 6.8 thou/uL (4.8-10.8)
[2019-01-01 05:08] LABS: ALT (SGPT) 13 U/L (8-55); AST (SGOT) 12 U/L (5-34); Albumin 3.4 g/dL (3.5-5.0); Alkaline Phosphatase 111 U/L (40-150); Bilirubin, Direct 0.2 mg/dL (0.1-0.3); Bilirubin, Total 0.3 mg/dL (0.2-1.2); Phosphorus 3.3 mg/dL (2.3-4.7); Protein, Total 5.8 g/dL (6.0-8.3)
[2019-01-01 05:09] LABS: Anion Gap 12 mmol/L (10-20); BUN (Urea Nitrogen) 7 mg/dL (9.8-20.1); Calc. Creatinine Clearance 146 mL/min (70-130); Calcium 9.2 mg/dL (7.8-10.44); Carbon Dioxide 26 mmol/L (22-29); Chloride 103 mmol/L (98-107); Estimated GFR-MDRD Greater than 90; Glucose 96 mg/dL (70-105); Lipase 112 U/L (8-78); Magnesium 1.8 mg/dL (1.6-2.6); Potassium 3.9 mmol/L (3.5-5.1); Sodium 137 mmol/L (136-145)
[2019-01-01] MEDS: Acetaminophen 1,000 MG in Premix Bag 1 BAG IVPB SCH (07:30)
[2019-01-01] MEDS ORDERED: Acetaminophen 1,000 MG in Premix Bag 1 BAG IVPB SCH (07:30)
[2019-01-01] MEDS: D5 1/2 NS w/20 mEq KCL 1,000 ML IV SCH ×3 (07:33→22:47)
[2019-01-01] MEDS: Lisinopril 10 MG TAB PO SCH ×2 (08:05→21:28)
[2019-01-01] MEDS: Amlodipine 10 MG TAB PO SCH (08:05)
[2019-01-01] MEDS: Gabapentin 300 MG CAP PO SCH ×3 (08:05→21:28)
--- NOTE | 2019-01-01 08:09 | HP ---
ADMITTING COMPLAINT: Nausea and vomiting. HISTORY OF PRESENT ILLNESS: This is a 53-year-old female who was recently discharged from the hospital on the 16 of December following a surgical repair for SMA. The patient states that she was at her home, was even going to work with very light duties and last night noted that she was having significant terrible worsening abdominal pain. The patient presented to the local ENT department at [place] and was brought to the hospital. The patient was found to have a significant amount of abdominal pain in the ER, was given medications for her management of her pain, had a CT scan done which showed a distended stomach, duodenum and compression along the 3rd and 4th portion of the duodenum. An NG tube was inserted to intermittent suction and the patient's symptoms significantly improved following thereafter, the patient was seen and examined by the medicine team stating that her symptoms have significantly improved following the NG tube insertion. She does not have any more nausea, vomiting, chest pain or abdominal pain anymore. No alleviating or aggravating factors. The patient is seen and examined. at bedside. All questions answered. REVIEW OF SYSTEMS: All systems reviewed. Pertinent positive in HPI, otherwise negative. ALLERGIES: ADHESIVE TAPE, AMOXICILLIN, CIPROFLOXACIN, CLAVULANIC ACID, AND PREDNISONE. HOME MEDICATIONS: See MAR. PAST MEDICAL HISTORY: Positive for hypertension, recent SMA repair and acute DVTs. SOCIAL HISTORY: Nondrinker nonsmoker. FAMILY HISTORY: Noncontributory. PHYSICAL EXAMINATION: VITAL SIGNS: Blood pressure 122/81, temperature of 98.1, heart rate of 78, respiratory rate of 16, O2 saturation 95% on room air. GENERAL: The patient lying in bed. No acute discomfort. HEENT: Pupils equal, round and reactive to light and accommodation. Extraocular muscles intact. Oral cavity moist and pink. NG tube insertion. CARDIOVASCULAR: Regular rate and rhythm. S1 and S2. No murmurs, rubs, or gallops appreciated. PULMONARY: Clear to auscultation bilaterally. No rales, rhonchi, or wheezing appreciated. ABDOMINAL: Positive bowel sounds. Soft, nontender, nondistended. EXTREMITIES: 2+ peripheral pulses noted. No cyanosis, clubbing, or edema noted. NEUROLOGICAL: Cranial nerves 2 through 12 intact. No loss of motor or sensory function. LABORATORY DATA: Reviewed. CBC, CMP reviewed. Images reviewed. ASSESSMENT: 1. Small bowel obstruction. 2. Abdominal pain. 3. Hypertension. 4. History of deep venous thrombosis. 5. Leukocytosis. 6. Hypokalemia. PLAN: 1. At this point in time I will admit the patient to Internal Medicine Team. Consult pending to surgical team as well. Keep NG tube inserted. 2. Small bowel follow-through series has been ordered and pending. 3. We will probably keep the patient n.p.o. for now. We will continue with IV fluids. 4. Repeat blood work in the morning. 5. Given the significant symptomatic improvement the patient has had, hopefully she may not require surgical intervention and can just be observed on NG tube with suction. 6. Has not had a bowel movement or passed gas as of yet, so we will continue with current plan of care. Case and plan discussed with the patient and at length. They understand and agree with this plan. Job ID: [id number]
[2019-01-01] MEDS: Pantoprazole 40 MG VIAL IVP SCH (09:19)
--- NOTE | 2019-01-01 15:11 | PDOC.HOSPP ---
- Subjective Encounter Date: 01/01/19 Encounter Time: 15:01 Subjective: anxious, nothing [place], na nausea with NGT - Objective Vital Signs & Weight: Vital Signs (12 hours) Temp Pulse Resp BP Pulse Ox 01/01/19 12:24 97.8 F 82 12 128/79 98 01/01/19 07:40 98.3 F 89 16 127/81 95 01/01/19 04:31 98.0 F 77 18 139/86 95 Weight Admit Weight 184 lb 6.4 oz Weight 184 lb 6.4 oz I&O: 12/31/18 01/01/19 01/02/19 06:59 06:59 06:59 Intake Total 3725 Output Total 2775 Balance 950 Result Diagrams: 01/01/19 04:22 01/01/19 04:22 ROS - Medication Medications: Active Medications Generic Name Dose Route Start Last Admin Trade Name Freq PRN Reason Stop Dose Admin Amlodipine Besylate 10 mg 12/31/18 09:00 01/01/19 08:05 Norvasc PO Not Given DAILY [facility] Gabapentin 300 mg 12/31/18 09:00 01/01/19 08:05 Neurontin PO Not Given TID AMIRAH Potassium Chloride/Dextrose/Sod Cl 1,000 mls @ 150 mls/hr 12/31/18 11:45 05/10 07:33 D5 1/2 Ns W/20 Meq Kcl IV 1,000 mls .Q6H40M AMIRAH Administration Lisinopril 10 mg 12/31/18 09:00 01/01/19 08:05 Zestril PO Not Given BID AMIRAH Morphine Sulfate 4 mg 12/31/18 11:38 01/01/19 12:12 Morphine IV 4 mg Q2H PRN Administration Pain Pantoprazole Sodium 40 mg 01/01/19 09:00 01/01/19 09:19 Protonix IVP 40 mg DAILY AMIRAH Administration Sodium Chloride 10 ml 12/31/18 21:00 01/01/19 08:05 Flush - Normal Saline IVF Not Given Q12HR AMIRAH - Exam awake alert Neck: no JVD Heart: RRR, no murmur Respiratory: CTAB Gastrointestinal: soft, non-distended Gastrointestinal - other findings: increased BS Extremities: no edema Hosp A/P (1) SBO (small bowel obstruction) Code(s): K56.609 - UNSP INTESTNL OBST, UNSP TO PARTIAL VERSUS COMPLETE OBST Status: Acute (2) Ischemic bowel disease Code(s): K55.9 - VASCULAR DISORDER OF INTESTINE, UNSPECIFIED Status: Acute (3) Chronic anticoagulation Code(s): Z79.01 - [facility]FP (CURRENT) USE OF ANTICOAGULANTS Status: Acute - Plan cont NGT to suctin cont iv fluids IV lorazepam for anxiety/insomnia GI consult for endoscopy
[2019-01-01] MEDS: Lorazepam 2 MG/ML VIAL SLOW IVP PRN ×2 (15:54→22:47)
[2019-01-01] MEDS: Ondansetron PF 4 MG/2 ML Vial IVP PRN (16:01)
[2019-01-01] MEDS: Enoxaparin Sodium 40 MG/0.4 ML SYRINGE SC SCH (20:25)
--- NOTE | 2019-01-02 02:34 | CON ---
DATE OF CONSULTATION: REASON FOR CONSULTATION: Bowel obstruction. HISTORY OF PRESENT ILLNESS: Ms. Mckeon is a 53-year-old woman known to me from previous admission. She was admitted with ischemic bowel and a splenic infarct from the thromboembolic event. Origin of the thromboembolus was unknown, but she had an ischemic segment of ileum and a dusky appearance to the distal duodenum and proximal jejunum. She underwent resection of the ileal segment and second look for the distal duodenum and proximal jejunum, which appeared viable at the time of her second operation. She recovered well from her operation and went home on therapeutic anticoagulation. She has had some issues with maintaining a therapeutic INR despite increasing her doses of Coumadin, but then developed recurrent nausea, vomiting, and abdominal pain. She was not able to successfully vomit. She does have a gastric band in place which is no longer inflated, but she was just dry heaving at the time of her admission. She was found to have a very distended stomach and proximal duodenum with no apparent obstruction in the mid duodenum. An NG tube was placed in the ER with almost immediate relief of her pain and nausea, and removal of a large amount of bilious fluid from the stomach. Since then, she has passed gas twice, but not had any bowel movement since continues to have a fairly high NG output. An upper GI with contrast showed continued dilation of the proximal stomach and duodenum with a small amount of contrast passing to the distal duodenum and jejunum. PHYSICAL EXAMINATION: GENERAL: Reveals a healthy-appearing woman with an NG tube in place. She is not flushed or toxic in appearance. HEENT: Unremarkable. NECK: Supple without lymphadenopathy or thyroid nodules. HEART: Regular in its rate and rhythm without murmurs, rubs, or gallops. LUNGS: Clear to auscultation bilaterally. ABDOMEN: Soft and nontender, nondistended. Bowel sounds are present. Laparoscopic and hand assist port sites are well healed. No palpable masses or hernias. EXTREMITIES: Warm and well perfused without edema. NEURO: No focal deficits. PSYCHIATRIC: Alert, oriented, and appropriate. LABORATORY DATA: Unremarkable. IMAGING STUDIES: As per HPI. ASSESSMENT: Small bowel obstruction in the mid duodenum, most likely due to ischemic stricture given her recent history. The patient has not been on any anticoagulation since admission by my review of medications and should at least be on prophylactic Lovenox. I have spoken with Dr. Espinal about her and he is going to schedule an EGD to look at the area of obstruction. Risk of malignancy or other causes of obstruction are low, but this needs to be verified. She does have ischemic stricture, this may be amenable to endoscopic dilation. If not, most likely, she will require gastrojejunostomy if her condition does not improve quickly. I have restarted her prophylactic Lovenox. Depending on whether any procedures are performed or anticipated to be necessary in the near future, we will restart her therapeutic Lovenox at the earliest possible time given the patient's life-threatening thromboembolic events in the recent past. Job ID: [id number]
--- NOTE | 2019-01-02 02:59 | CON ---
DATE OF CONSULTATION: 01/01/2019 CHIEF COMPLAINT: Abdominal pain. HISTORY OF PRESENT ILLNESS: Ms. 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 She underwent resection of the distal jejunum and proximal ileum. She was noted to have some ischemia of the distal duodenum and proximal jejunum; however, this did resume adequate blood flow on followup operation the next day, such that she did not require resection of more proximal small bowel segment. She came to the emergency room on 12/30/2018, due to onset of nausea and vomiting and diffuse upper abdominal pressure type abdominal pain. She was given antiemetics and morphine without resolution of her pain and vomiting. An NG tube was then inserted with suction and she had immediate improvement in symptoms after that. She has no ongoing nausea now. No abdominal pain currently. She had a contrast upper GI x-ray today that showed a high-grade duodenal obstruction. There was an area of narrowing along the 3rd or 4th portion of the duodenum as it crosses the midline. The contrast did eventually passed through, however, she is continued to have significant NG output. GI was consulted today for further evaluation of the narrowed segment in the distal duodenum to rule out an ischemic stricture or other process. 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 The cause of this is not determined. She did start hormone pellets recently. She has not been a smoker. Hypothyroidism, hypertension, and morbid obesity. PAST SURGICAL HISTORY: Recent bowel resection, laparoscopic inguinal hernia repairs, shoulder surgery, appendectomy, , hysterectomy with salpingo-oophorectomy, and laparoscopic gastric band. FAMILY HISTORY: Negative for GI malignancies. SOCIAL HISTORY: No alcohol, tobacco, or drugs. ALLERGIES: CIPROFLOXACIN, AUGMENTIN, PREDNISONE. INPATIENT MEDICATIONS: Amlodipine, gabapentin, lisinopril, pantoprazole. REVIEW OF SYSTEMS: Negative x10 systems reviewed except as stated in history of present illness. PHYSICAL EXAMINATION: VITAL SIGNS: Temperature 98.4, pulse 90, blood pressure 123/96. GENERAL: She is in no acute distress. Alert and oriented x3. HEENT: Eyes have no scleral icterus. She has an NG tube in place. Oropharynx is clear without lesions. No cervical or supraclavicular lymphadenopathy. LUNGS: Clear to auscultation bilaterally. HEART: Regular rate and rhythm without murmur. ABDOMEN: Soft, nontender, and nondistended. Bowel sounds are present. EXTREMITIES: No lower extremity edema. Cranial nerves are grossly intact. LABORATORY DATA: White blood cell count 6.8, hemoglobin 11.1, platelets 290. INR 1.4. Creatinine 0.58. Bilirubin 0.3, AST 12, ALT 13, alkaline phosphatase 111, and albumin 3.4. IMPRESSION: 1. Partial obstruction of the 3rd or 4th portion of the duodenum as it crosses midline. This is an area that did receive reduced blood flow during thromboembolic event. She did not require resection here, but certainly could have an ischemic stricture now. Also rule out a neoplastic or other process. 2. Recent mesenteric ischemia requiring bowel resection. She has been on warfarin as an outpatient. She is on enoxaparin 40 mg b.i.d. currently. RECOMMENDATIONS: 1. We will plan for push enteroscopy tomorrow. Potentially perform a biopsy or balloon dilation of the partially obstructing process in the distal duodenum. She might require general anesthesia for this depending on her NG output. 2. We will hold the enoxaparin in the morning. However, the goal will be to restart full anticoagulation when appropriate after the procedure. 3. Dr. Castano will resume care tomorrow. Job ID: [id number]
[2019-01-02] MEDS: D5 1/2 NS w/20 mEq KCL 1,000 ML IV SCH ×4 (05:27→21:42)
[2019-01-02] MEDS: Lisinopril 10 MG TAB PO SCH ×2 (08:53→21:32)
[2019-01-02] MEDS: Amlodipine 10 MG TAB PO SCH (08:53)
[2019-01-02] MEDS: Gabapentin 300 MG CAP PO SCH ×3 (08:53→21:32)
[2019-01-02] MEDS: Morphine 4 MG/ML VIAL IV PRN ×5 (08:55→21:33)
[2019-01-02] MEDS: Pantoprazole 40 MG VIAL IVP SCH ×2 (08:56→21:34)
[2019-01-02] MEDS: Enoxaparin Sodium 40 MG/0.4 ML SYRINGE SC SCH (10:25)
[2019-01-02] MEDS: Lorazepam 2 MG/ML VIAL SLOW IVP PRN ×2 (11:19→18:21)
--- NOTE | 2019-01-02 13:16 | PDOC.HOSPP ---
- Subjective Encounter Date: 01/02/19 Encounter Time: 13:15 Subjective: NGT to suction, no gas, etc per rectum - Objective Vital Signs & Weight: Vital Signs (12 hours) Temp Pulse Resp BP Pulse Ox 01/02/19 11:23 98 F 73 16 140/90 96 01/02/19 07:46 98 F 73 16 143/93 H 93 L 01/02/19 04:15 97.8 F 60 16 125/86 96 Weight Admit Weight 184 lb 6.4 oz Weight 184 lb 6.4 oz I&O: 01/01/19 01/02/19 01/03/19 06:59 06:59 06:59 Intake Total 3725 1850 Output Total 2775 560 Balance 950 1290 Result Diagrams: 01/01/19 04:22 01/01/19 04:22 ROS - Medication Medications: Active Medications Generic Name Dose Route Start Last Admin Trade Name Freq PRN Reason Stop Dose Admin Amlodipine Besylate 10 mg 12/31/18 09:00 01/02/19 08:53 Norvasc PO Not Given DAILY [facility] Gabapentin 300 mg 12/31/18 09:00 01/02/19 08:53 Neurontin PO Not Given TID AMIRAH Potassium Chloride/Dextrose/Sod Cl 1,000 mls @ 150 mls/hr 12/31/18 11:45 11:20 D5 1/2 Ns W/20 Meq Kcl IV 1,000 mls .Q6H40M AMIRAH Administration Lisinopril 10 mg 12/31/18 09:00 01/02/19 08:53 Zestril PO Not Given BID AMIRAH Lorazepam 0.5 mg 01/01/19 15:14 01/02/19 11:19 Ativan SLOW IVP 0.5 mg Q6H PRN Administration Anxiety/Agitation Morphine Sulfate 4 mg 12/31/18 11:38 01/02/19 11:19 Morphine IV 4 mg Q2H PRN Administration Pain Ondansetron HCl 4 mg 12/31/18 11:38 01/01/19 16:01 Zofran IVP 4 mg Q6H PRN Administration Nausea/Vomiting Pantoprazole Sodium 40 mg 01/01/19 09:00 01/02/19 08:56 Protonix IVP 40 mg DAILY AMIRAH Administration Sodium Chloride 10 ml 12/31/18 21:00 01/02/19 09:07 Flush - Normal Saline IVF Not Given Q12HR AMIRAH - Exam awake alert Neck: JVD Heart: RRR, no murmur Respiratory: CTAB Gastrointestinal: soft, non-distended, normal bowel sounds Gastrointestinal - other findings: NGT to suction Extremities: no edema Hosp A/P (1) SBO (small bowel obstruction) Code(s): K56.609 - UNSP INTESTNL OBST, UNSP TO PARTIAL VERSUS COMPLETE OBST Status: Acute (2) Ischemic bowel disease Code(s): K55.9 - VASCULAR DISORDER OF INTESTINE, UNSPECIFIED Status: Acute (3) Chronic anticoagulation Code(s): Z79.01 - [facility] (CURRENT) USE OF ANTICOAGULANTS Status: Acute (4) Nausea & vomiting Code(s): R11.2 - NAUSEA WITH VOMITING, UNSPECIFIED Status: Acute - Plan cont NGT to suctin cont iv fluids IV lorazepam for anxiety/insomnia endoscopy planned this PM
[2019-01-02] MEDS ORDERED: Ketamine 50 MG/ML (10ML VIAL) ONE (15:42)
[2019-01-02] MEDS ORDERED: Ondansetron PF 4 MG/2 ML Vial ONE (16:00)
[2019-01-02] MEDS ORDERED: Dexamethasone 20 MG/5 ML VIAL ONE (16:00)
[2019-01-02] MEDS ORDERED: Rocuronium Bromide 10 MG/ML (10ML VIAL) ONE (16:00)
[2019-01-02] MEDS ORDERED: PROPOFOL 200 MG/20 ML VIAL ONE (16:00)
[2019-01-02] MEDS ORDERED: Lidocaine 1% PF 5 ML VIAL ONE (16:00)
[2019-01-02] MEDS ORDERED: Labetalol HCl 100 MG/20 ML VIAL ONE (17:09)
[2019-01-02] MEDS ORDERED: Sodium Chloride 0.9% (PF) 10 ML VIAL FS PRN (18:07)
[2019-01-02] MEDS ORDERED: diphenhydrAMINE 50 MG/ML VIAL IVP SCH (21:15)
[2019-01-02] MEDS: Enoxaparin Sodium 80 MG/0.8 ML SYRINGE SC SCH (21:33)
--- NOTE | 2019-01-02 23:04 | OP ---
DATE OF PROCEDURE: 01/02/2019 PROCEDURE PERFORMED: Enteroscopy with biopsy. PRE PROCEDURE DIAGNOSES: 1. Small bowel obstruction. 2. Abnormal CT scan demonstrating high-grade obstruction in the distal duodenum. POSTPROCEDURE DIAGNOSES: 1. Exam to third portion of duodenum. 2. Ulcerated friable stricture in the third portion of the duodenum with significant luminal narrowing to an opening of 3 mm in diameter, biopsied. 3. [id number] distal erosive esophagitis due to nasogastric tube trauma and acid reflux. 4. Patchy erythema of the cardia and proximal stomach, not biopsied. 5. Otherwise normal-appearing stomach without evidence of ulceration or gastritis. PROCEDURE IN DETAIL: Written informed consent was obtained. The patient was brought to the endoscopy suite. General endotracheal anesthesia was administered by Dr. Kinney and associates. The patient was placed in the left lateral decubitus position. A bite block was inserted into the mouth. A Pentax video diagnostic colonoscope was introduced into the oral cavity and the esophagus was carefully intubated. The colonoscope was advanced under direct visualization to the third portion of the duodenum. Endoscopic findings revealed [id number] distal erosive esophagitis without active bleeding, most likely due to nasogastric tube trauma and acid reflux. The stomach was entered and carefully examined. Several patches of erythema were noted involving the gastric folds of the cardia and proximal stomach. No active bleeding or ulceration was seen. The remainder of the stomach appeared normal. The pyloric channel was patent and easily traversed. In the third portion of the duodenum, significant luminal narrowing was encountered due to an ulcerated friable stricture. The lumen was estimated at 3 mm in diameter and could not be safely traversed by the endoscope. Biopsies were obtained for histology. The duodenum and stomach were carefully decompressed as the endoscope was completely removed from the patient. She was extubated and transferred to the PACU for postprocedure monitoring. There were no immediate complications. RECOMMENDATIONS: 1. Resume n.p.o. status and nasogastric tube to intermittent suctioning. 2. Initiate IV pantoprazole q.12 hours. 3. Await biopsy results. 4. I have discussed the situation with Dr. Gilliam. This situation is unlikely to resolve without surgical intervention. Job ID: [id number] [facility]
--- NOTE | 2019-01-02 23:15 | PRG ---
DATE OF SERVICE: 01/02/2019 SUBJECTIVE: Ms. Mckeon is feeling well this evening. She underwent EGD earlier today, which showed a tight stricture in D3 with some ulceration. This was felt to be acute and not safe to dilate. The opening was estimated to be only a few millimeters wide. Biopsies were taken. NG tube is in place and she still has bilious output. OBJECTIVE: She had 560 mL out yesterday and 450 so far today. No bowel movements. Abdomen is nontender. ASSESSMENT: Tight stricture in D3, likely ischemic. Biopsies are pending. It is doubtful that this is malignant, but if there are concerning changes on biopsy, she will need to be transferred for further management. Otherwise, she may require gastrojejunostomy due to the location and the severity of the stricture. If she appears to be improving with decreased NG output, then a trial of medical management with higher dose proton pump inhibitors could be attempted with a second-look endoscopy later this week. We will see how she does over the next day or two. Job ID: [id number]
[2019-01-03] MEDS: Lorazepam 2 MG/ML VIAL SLOW IVP PRN ×3 (00:41→21:38)
[2019-01-03] MEDS: Morphine 4 MG/ML VIAL IV PRN ×5 (00:41→21:39)
[2019-01-03] MEDS: D5 1/2 NS w/20 mEq KCL 1,000 ML IV SCH ×3 (04:46→18:14)
[2019-01-03] MEDS: Pantoprazole 40 MG VIAL IVP SCH ×2 (09:25→21:40)
[2019-01-03] MEDS: Lisinopril 10 MG TAB PO SCH ×2 (09:25→20:40)
[2019-01-03] MEDS: Gabapentin 300 MG CAP PO SCH ×3 (09:25→20:40)
[2019-01-03] MEDS: Amlodipine 10 MG TAB PO SCH (09:25)
[2019-01-03] MEDS: Enoxaparin Sodium 80 MG/0.8 ML SYRINGE SC SCH (10:38)
--- NOTE | 2019-01-03 12:12 | PDOC.HOSPP ---
- Subjective Encounter Date: 01/03/19 Encounter Time: 12:10 Subjective: comfortable, NGT to suction - Objective Vital Signs & Weight: Vital Signs (12 hours) Temp Pulse Resp BP Pulse Ox 01/03/19 11:15 98.1 F 74 18 131/89 96 01/03/19 07:15 97.7 F 69 18 132/84 95 01/03/19 03:29 97.6 F 75 16 139/86 96 Weight Admit Weight 184 lb 6.4 oz Weight 184 lb 6.4 oz I&O: 01/02/19 01/03/19 01/04/19 06:59 06:59 06:59 Intake Total 1850 3750 Output Total 560 700 Balance 1290 3050 Result Diagrams: 01/01/19 04:22 01/01/19 04:22 ROS - Medication Medications: Active Medications Generic Name Dose Route Start Last Admin Trade Name Freq PRN Reason Stop Dose Admin Amlodipine Besylate 10 mg 12/31/18 09:00 01/03/19 09:25 Norvasc PO Not Given DAILY AMIRAH Enoxaparin Sodium 80 mg 01/02/19 21:00 01/03/19 10:38 Lovenox SC 80 mg 0900,2100 AMIRAH Administration Gabapentin 300 mg 12/31/18 09:00 01/03/19 09:25 Neurontin PO Not Given TID AMIRAH Potassium Chloride/Dextrose/Sod Cl 1,000 mls @ 150 mls/hr 12/31/18 11:45 10:27 D5 1/2 Ns W/20 Meq Kcl IV 1,000 mls .Q6H40M AMIRAH Administration Lisinopril 10 mg 12/31/18 09:00 01/03/19 09:25 Zestril PO Not Given BID AMIRAH Lorazepam 0.5 mg 01/01/19 15:14 01/03/19 00:41 Ativan SLOW IVP 0.5 mg Q6H PRN Administration Anxiety/Agitation Morphine Sulfate 4 mg 12/31/18 11:38 01/03/19 09:24 Morphine IV 4 mg Q2H PRN Administration Pain Ondansetron HCl 4 mg 12/31/18 11:38 01/01/19 16:01 Zofran IVP 4 mg Q6H PRN Administration Nausea/Vomiting Pantoprazole Sodium 40 mg 01/02/19 21:00 01/03/19 09:25 Protonix IVP 40 mg Q12HR AMIRAH Administration Sodium Chloride 10 ml 12/31/18 21:00 01/03/19 09:25 Flush - Normal Saline IVF Not Given Q12HR AMIRAH - Exam Neck: JVD Heart: RRR, no murmur Respiratory: CTAB Gastrointestinal: soft, normal bowel sounds Extremities: no edema Hosp A/P (1) SBO (small bowel obstruction) Code(s): K56.609 - UNSP INTESTNL OBST, UNSP TO PARTIAL VERSUS COMPLETE OBST Status: Acute (2) Ischemic bowel disease Code(s): K55.9 - VASCULAR DISORDER OF INTESTINE, UNSPECIFIED Status: Acute (3) Chronic anticoagulation Code(s): Z79.01 - JAIL (CURRENT) USE OF ANTICOAGULANTS Status: Acute (4) Nausea & vomiting Code(s): R11.2 - NAUSEA WITH VOMITING, UNSPECIFIED Status: Acute - Plan cont NGT to suctin cont iv fluids IV lorazepam for anxiety/insomnia EGD reveals duodenal stricture Bx pending cont current tx
[2019-01-03] MEDS ORDERED: cefOXitin 2 GM in Sodium Chloride 0.9% 100 ML IVPB SCH (14:45)
--- NOTE | 2019-01-03 17:02 | PRG ---
DATE OF SERVICE: 01/03/2019 SUBJECTIVE: She continues to have significant output from her NG tube. There is no abdominal pain, but she does complain of discomfort in her nose from the NG tube. OBJECTIVE: VITAL SIGNS: Temperature 98.3, pulse 79, and blood pressure 142/85. GENERAL: She is in no acute distress. Alert and oriented x3. Her is with her. LUNGS: Clear to auscultation bilaterally. HEART: Regular rate and rhythm without murmur. ABDOMEN: Soft, nontender, and nondistended. Bowel sounds are present. EXTREMITIES: No lower extremity edema. LABORATORY DATA: No new labs today. IMPRESSION: Small-bowel obstruction in the third portion of the duodenum secondary to ischemic ulcer. Biopsies from the ulcer site are pending. There is no obvious neoplastic lesion area endoscopically. The patient reports that Dr. Castillo did see her a short while ago and recommends proceeding with surgery, likely gastrojejunostomy. I think this is appropriate given that the ulcer is unlikely to respond to acid suppression alone and this is a high-risk area for balloon dilation and the acute ulcer is not appropriate for balloon dilation anyway. Also, she continues to have significant output from her NG tube. RECOMMENDATIONS: 1. Plan is to proceed with surgery tomorrow. 2. Await biopsy results. Job ID: [id number]
--- NOTE | 2019-01-03 17:31 | PDOC.GSPN ---
Surgery Progress Note: Subj - Subjective Narrative: Patient with tight stricture in D3. Biopsies are pending but should be back tomorrow morning. She is tentatively on the OR schedule with Dr. Castillo for a laparoscopic gastrojejunostomy and gastric band removal. Surgery Progress Note: Obj - Vital signs Vital signs: Vital Signs - Most Recent Temp Pulse Resp BP Pulse Ox 98.3 F 79 16 142/85 H 98 01/03/19 15:24 01/03/19 15:24 01/03/19 15:24 01/03/19 15:24 01/03/19 15:24 Surgery Progress Note: Results - Labs Result Diagrams: 01/01/19 04:22 01/01/19 04:22
[2019-01-03] MEDS ORDERED: Enoxaparin Sodium 40 MG/0.4 ML SYRINGE SC SCH (21:00)
--- NOTE | 2019-01-03 23:25 | PRG ---
DATE OF SERVICE: 01/03/2019 SUBJECTIVE: Mike is a 53-year-old white female. She is well known to Dr. 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 She appeared to have thromboembolic disease of uncertain etiology. She returned to the hospital with pain, nausea, and vomiting on December 30. She has been hospitalized since that time. She has undergone evaluation with CT scan, upper GI endoscopy, and upper GI contrast study. She has had consultation by Dr. Gilliam and Dr. Espinal of Gastroenterology. I have reviewed her x-ray studies and all notes associated with her current hospitalization and reviewed her prior hospital course in November. I have performed a full history and physical examination on the patient. She has already been seen in surgical consultation. She appears to have an obstruction due to what is felt to be a possibly ischemic ulceration in the 3rd portion of the duodenum. Reviewing her CT scan, this appears to be close to the area where the SMA crosses the duodenum. Her endoscopy, however, not revealed internal ulceration with a very narrowed lumen at this location. Her CT scan showed massive dilatation of the stomach and duodenum proximal to this area. OBJECTIVE: VITAL SIGNS: She is afebrile with normal vital signs and her examination today is unremarkable. She still has nasogastric tube in place. ABDOMEN: Soft and nontender. Her incisions from recent surgery per Dr. Gilliam are well healed. ASSESSMENT: The patient who appears to have obstruction of the duodenum in the 3rd portion. She has substantial dilatation of the duodenum and stomach. I had initially felt that she may benefit from a gastrojejunostomy, but further review of this looks like it might be more appropriate duodenojejunostomy. This can likely be performed safely laparoscopically. I would tentatively plan on performing this through an inferior transmesenteric approach likely with a [id number] chao duodenojejunostomy. The final pathology from endoscopy is still pending, but it was not felt to have a malignant appearance either radiographically or endoscopically. She is tentatively scheduled for bypass of her obstructing duodenal lesion by myself tomorrow morning. I have discussed the operation as well as potential risks with the patient. She understands and agrees to proceed with surgery at this time. Job ID: [id number]
[2019-01-04] MEDS ORDERED: ceFAZolin Sodium (SDC) 2 GM/100 ML BAG ONE (06:26)
[2019-01-04] MEDS ORDERED: Fentanyl 250 MCG/5 ML VIAL ONE (06:37)
[2019-01-04] MEDS ORDERED: Lidocaine 2% Jelly 5 ML TUBE ONE (06:37)
[2019-01-04] MEDS ORDERED: Bupivacaine/Epinephrine 0.25% 30 ML VIAL ONE ×2 (06:48→06:49)
[2019-01-04] MEDS ORDERED: cefOXitin 2 GM VIAL ONE (07:27)
[2019-01-04] MEDS ORDERED: Sodium Chloride 0.9% 100 ML ONE (07:28)
[2019-01-04] MEDS: Gabapentin 300 MG CAP PO SCH (10:01)
[2019-01-04] MEDS: D5 1/2 NS w/20 mEq KCL 1,000 ML IV SCH ×3 (10:01→20:52)
[2019-01-04] MEDS: Lisinopril 10 MG TAB PO SCH (10:01)
[2019-01-04] MEDS: Amlodipine 10 MG TAB PO SCH (10:01)
[2019-01-04] MEDS: Pantoprazole 40 MG VIAL IVP SCH ×2 (10:02→20:50)
[2019-01-04] MEDS ORDERED: Promethazine HCl 25 MG/ML VIAL SLOW IVP PRN (11:10)
[2019-01-04] MEDS ORDERED: Promethazine HCl 25 MG/ML VIAL IM PRN (11:10)
[2019-01-04] MEDS ORDERED: Ondansetron HCl/PF 4 MG/2 ML Vial IVP PRN (11:10)
[2019-01-04] MEDS: Ketorolac Tromethamine 30 MG/ML VIAL IVP SCH ×2 (12:17→17:14)
[2019-01-04] MEDS: Acetaminophen 1,000 MG in Premix Bag 1 BAG IVPB SCH ×2 (12:21→17:13)
[2019-01-04] MEDS: Morphine 4 MG/ML VIAL IV PRN ×4 (12:22→20:51)
[2019-01-04] MEDS: Lorazepam 2 MG/ML VIAL SLOW IVP PRN ×2 (13:34→20:51)
--- NOTE | 2019-01-04 15:11 | PDOC.HOSPP ---
- Subjective Encounter Date: 01/04/19 Encounter Time: 15:09 Subjective: sleepy, no distress. post op - Objective Vital Signs & Weight: Vital Signs (12 hours) Temp Pulse Resp BP Pulse Ox 01/04/19 05:51 97.9 F 85 17 135/86 96 Weight Admit Weight 184 lb 6.4 oz Weight 184 lb 6.4 oz I&O: 01/03/19 01/04/19 01/05/19 06:59 06:59 06:59 Intake Total 3750 3440 Output Total 700 1850 Balance 3050 1590 Result Diagrams: 01/01/19 04:22 01/01/19 04:22 ROS - Medication Medications: Active Medications Generic Name Dose Route Start Last Admin Trade Name Freq PRN Reason Stop Dose Admin Potassium Chloride/Dextrose/Sod Cl 1,000 mls @ 120 mls/hr 12/31/18 11:45 12:21 D5 1/2 Ns W/20 Meq Kcl IV 1,000 mls .Q8H20M AMIRAH Administration Acetaminophen 1,000 mg/ Device 100 mls @ 400 mls/hr 01/04/19 12:00 01/04/19 12:21 IVPB 01/05/19 06:14 100 mls Q6HR AMIRAH Administration Ketorolac Tromethamine 30 mg 01/04/19 12:00 01/04/19 12:17 Toradol IVP 01/09/19 12:01 30 mg Q6HR AMIRAH Administration Lorazepam 0.5 mg 01/01/19 15:14 01/04/19 13:34 Ativan SLOW IVP 0.5 mg Q6H PRN Administration Anxiety/Agitation Morphine Sulfate 4 mg 12/31/18 11:38 01/04/19 12:22 Morphine IV 4 mg Q2H PRN Administration Pain Ondansetron HCl 4 mg 12/31/18 11:38 01/01/19 16:01 Zofran IVP 4 mg Q6H PRN Administration Nausea/Vomiting Pantoprazole Sodium 40 mg 01/02/19 21:00 01/04/19 10:02 Protonix IVP Not Given Q12HR AMIRAH Sodium Chloride 10 ml 12/31/18 21:00 01/04/19 10:02 Flush - Normal Saline IVF Not Given Q12HR AMIRAH - Exam Neck: JVD Heart: RRR, no murmur Respiratory: CTAB Gastrointestinal: soft, non-tender, normal bowel sounds Extremities: no edema Hosp A/P (1) SBO (small bowel obstruction) Code(s): K56.609 - UNSP INTESTNL OBST, UNSP TO PARTIAL VERSUS COMPLETE OBST Status: Acute (2) Ischemic bowel disease Code(s): K55.9 - VASCULAR DISORDER OF INTESTINE, UNSPECIFIED Status: Acute (3) Chronic anticoagulation Code(s): Z79.01 - REGISTERED RESPIRATORY TECHNICIAN (CURRENT) USE OF ANTICOAGULANTS Status: Acute (4) Nausea & vomiting Code(s): R11.2 - NAUSEA WITH VOMITING, UNSPECIFIED Status: Acute - Plan post op laparoscopic procedure cont NGT to suction cont iv fluids IV lorazepam for anxiety/insomnia gastrograffin UGI tomorrow Bx pending
--- NOTE | 2019-01-04 16:42 | OP ---
DATE OF PROCEDURE: 01/04/2019 PREOPERATIVE DIAGNOSES: Duodenal obstruction, third portion of duodenum; unnecessary/undesired/problematic adjustable gastric band and port. OPERATION PERFORMED: Laparoscopic duodenojejunostomy and removal of adjustable gastric lap-band and port. MOHS SURGEON/GENERAL DERMATOLOGIST: Kirill Milan, medical student. ANESTHESIA: General endotracheal. INDICATIONS: The patient is a 53-year-old white female. 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 She presented at this time with evidence of tight obstruction of the third portion of the duodenum with dilated stomach and proximal duodenum. Endoscopy revealed evidence of a tight obstruction in the third portion of the duodenum with internal ulceration. This was felt to likely be a result of an ischemic insult to this area. She was taken to the operating room at this time for a duodenojejunostomy in order to bypass this stricture. Additionally, she had a lap band procedure performed several years ago. Her lap band is not being utilized. She has discomfort associated with the port and concerns regarding persistent indwelling foreign body and requests that this be removed during the surgery. DESCRIPTION OF OPERATION: Informed consent was obtained. The patient was taken to the operating room, where general endotracheal anesthesia was obtained with the patient in supine position. She was then placed in the split leg position and the abdomen was prepped with ChloraPrep and draped in sterile fashion. Local anesthetic was infiltrated, and a 5 mm left midabdominal incision was created, through which a Veress needle was passed into the peritoneal cavity and pneumoperitoneum was established using carbon dioxide up to pressure of 15 mmHg. A 5 mm trocar port was passed through the same incision. Laparoscopic camera was passed through this port. Under direct vision, a 5 mm trocar port was passed. The abdominal contents were explored. In spite of her recent surgery with a periumbilical extraction site, she had no adhesions at all to her anterior abdominal wall. I therefore placed a 5 mm infraumbilical incision port through this incision under direct vision. Utilizing these two ports, I reflected the omentum from the lower abdomen into the upper abdomen to identify the area of the planned duodenal anastomosis. There were a couple of small adhesions between the omentum and small bowel inferiorly, and these were quickly lysed with LigaSure retraction. After identifying the planned area of surgery, I placed remaining ports. A 12 mm port was placed at the site of her indwelling lap band port in the left upper abdomen. I then placed two 5 mm left lower abdominal ports. I turned my attention initially to her lap band. The tubing was transected at the point that it exited from the anterior abdominal wall. The left lobe of the liver was elevated, adhesions over the band were taken down with electrocautery. The buckle of the band was mobilized again using electrocautery. The band was transected sharply and removed uneventfully from its position around the stomach. The band and tubing were later removed through the 12 mm port site. Attention was turned to the duodenum. I reflected the transverse colon anteriorly and superiorly and was able to visualize the location of the duodenum through the transverse mesocolon. The transverse mesocolon was incised and dissection carried directly down onto the duodenum. I was able to continue to dissect the mesocolon and the retroperitoneal tissues as necessary to mobilize the duodenum. The superior mesenteric vein was identified and protected. The dissection did not extend all the way over toward the mesenteric vein where it crossed the duodenum. Primarily using blunt dissection, but occasionally using the LigaSure, about 6 or 7 cm of the duodenum were mobilized, giving visualization to the anterior and lateral aspects of the duodenum. The ligament of Treitz was identified and the small bowel was traced about 30 cm distally. This was the site selected for anastomosis. I placed a 3-0 Vicryl stay suture between the duodenum and the jejunum and left this tail long to use as traction. I then created enterotomy in both the duodenum and the jejunum just beyond the stay suture. I introduced a 60 mm Ironwood stapler with a white load. This was advanced without difficulty into both the duodenum and jejunum, and with the stapler fully advanced, the staple was fired, thus creating about a 6 cm anastomosis at this location. There was no bleeding at all from the staple line or the enterotomy. The common enterotomy was then closed with a running suture of 3-0 Stratafix in a to and fro fashion while elevating the anastomosis using the stay suture. I placed a final suture of 3-0 Vicryl at the distal end of the staple line. The duodenojejunostomy was under no tension and appeared to be widely patent. The omentum was then pulled back down over the anastomosis. All ports and instruments were removed under direct vision. Pneumoperitoneum was carefully evacuated. Attention was turned to the subcutaneous port in the left abdomen. The incision at the 12 mm port was opened a little further to allow port extraction. The port was dissected free and removed uneventfully. Much of the capsule of the port was excised during the course of port extraction. The fascial defect at the 12 mm port site was closed with 0 Vicryl suture using a GraNee needle before removing the instruments. Additional local anesthetic was infiltrated into each port site using 0.25% Marcaine with epinephrine. The skin incisions were closed with 4-0 Monocryl subcuticular suture and Dermabond was placed externally. There were no complications with the operation. Blood loss was less than 10 mL. The patient tolerated the procedure well and was taken to recovery room in stable condition. Job ID: [id number]
[2019-01-04] MEDS: Enoxaparin Sodium 40 MG/0.4 ML SYRINGE SC SCH (20:51)
[2019-01-05] MEDS: Acetaminophen 1,000 MG in Premix Bag 1 BAG IVPB SCH ×2 (00:31→06:01)
[2019-01-05] MEDS: Ketorolac Tromethamine 30 MG/ML VIAL IVP SCH ×4 (00:32→18:21)
[2019-01-05 05:59] LABS: #Basophils 0.1 thou/uL (0.0-0.2); #Lymphocytes 2.8 thou/uL (1.20-3.40); #Monocytes 0.9 thou/uL (0.11-0.59); #Neutrophils 6.7 thou/uL (1.40-6.50); %Basophils 0.8 % (0.0-1.0); %Eosinophils 0.5 % (0.0-10.0); %Lymphocytes 26.5 % (21.0-51.0); %Monocytes 8.4 % (0.0-10.0); %Neutrophils 63.7 % (42.0-75.0); Hemoglobin 9.1 g/dL (12.0-16.0); Mean Corpuscular HGB CONC 31.4 g/dL (32.0-36.0); Mean Corpuscular Hemoglobin 27.5 pg (27.0-31.0); Mean Corpuscular Volume 87.4 fL (78.0-98.0); Mean Platelet Volume 7.3 fL (7.4-10.4); Platelet Count 301 thou/uL (130-400); RBC Distribution Width 16.1 % (11.5-14.5); Red Blood Cell (RBC) Count 3.32 mill/uL (4.20-5.40); White Blood Cell (WBC) Count 10.5 thou/uL (4.8-10.8)
[2019-01-05] MEDS: D5 1/2 NS w/20 mEq KCL 1,000 ML IV SCH ×5 (06:00→20:02)
[2019-01-05 06:15] LABS: ALT (SGPT) 59 U/L (8-55); AST (SGOT) 37 U/L (5-34); Albumin 3.1 g/dL (3.5-5.0); Alkaline Phosphatase 107 U/L (40-150); Anion Gap 10 mmol/L (10-20); BUN (Urea Nitrogen) 4 mg/dL (9.8-20.1); Bilirubin, Total 0.4 mg/dL (0.2-1.2); Calc. Creatinine Clearance 135 mL/min (70-130); Calcium 8.5 mg/dL (7.8-10.44); Carbon Dioxide 27 mmol/L (22-29); Chloride 105 mmol/L (98-107); Estimated GFR-MDRD Greater than 90; Globulin 2.1 g/dL (2.4-3.5); Glucose 97 mg/dL (70-105); Potassium 3.6 mmol/L (3.5-5.1); Protein, Total 5.2 g/dL (6.0-8.3); Sodium 138 mmol/L (136-145)
--- NOTE | 2019-01-05 09:13 | RAD ---
Upper GI single column HISTORY: Duodenal obstruction. Duodenal jejunostomy. FINDINGS: Gastrografin contrast was administered through the nasogastric tube. Normal anatomic appear ance of the stomach. Diminished peristalsis. Early contrast opacification of the first and second portion of the duodenum. Contrast immediately em ptied into the proximal jejunum in the right mid abdomen, descending to the central abdomen. No evidence of leak. Residual contrast material was apparent within the colon. IMPRESSION: Duodenal jejunostomy is patent without evidence of complication.
[2019-01-05] MEDS: Enoxaparin Sodium 40 MG/0.4 ML SYRINGE SC SCH (09:22)
[2019-01-05] MEDS: Pantoprazole 40 MG VIAL IVP SCH (09:22)
[2019-01-05] MEDS: Morphine 4 MG/ML VIAL IV PRN ×3 (09:22→16:46)
[2019-01-05] MEDS: Ondansetron PF 4 MG/2 ML Vial IVP PRN ×3 (09:31→20:05)
[2019-01-05 14:37] LABS: Hemoglobin 10.2 g/dL (12.0-16.0)
[2019-01-05] MEDS ORDERED: D5 1/2 NS w/20 mEq KCL 1,000 ML IV SCH (15:00)
--- NOTE | 2019-01-05 15:20 | PDOC.HOSPP ---
- Subjective Encounter Date: 01/05/19 Encounter Time: 11:00 Subjective: Ms. Mckeon was seen today in follow-up of small bowel obstruction. she notes some mild abdominal pain, but otherwise ok. She is concerned about what to do regarding anticoagulation when she leaves the hospital. - Objective Vital Signs & Weight: Vital Signs (12 hours) Temp Pulse Resp BP Pulse Ox 01/05/19 11:25 97.8 F 66 18 135/86 97 01/05/19 07:42 97.7 F 60 18 137/87 96 01/05/19 04:00 97.8 F 60 17 154/98 H 96 Weight Admit Weight 184 lb 6.4 oz Weight 184 lb 6.4 oz I&O: 01/04/19 01/05/19 01/06/19 06:59 06:59 06:59 Intake Total 3440 2555 Output Total 1850 175 Balance 1590 2380 Result Diagrams: 01/05/19 14:31 01/05/19 05:32 ROS - Medication Medications: Active Medications Generic Name Dose Route Start Last Admin Trade Name Freq PRN Reason Stop Dose Admin Enoxaparin Sodium 40 mg 01/04/19 21:00 01/05/19 09:22 Lovenox SC 40 mg 0900,2100 AMIRAH Administration Potassium Chloride/Dextrose/Sod Cl 1,000 mls @ 50 mls/hr 01/05/19 15:00 01/05 14:59 D5 1/2 Ns W/20 Meq Kcl IV Not Given .Q20H AMIRAH Ketorolac Tromethamine 30 mg 01/04/19 12:00 01/05/19 11:54 Toradol IVP 01/09/19 12:01 30 mg Q6HR AMIRAH Administration Lorazepam 0.5 mg 01/01/19 15:14 01/04/19 20:51 Ativan SLOW IVP 0.5 mg Q6H PRN Administration Anxiety/Agitation Morphine Sulfate 4 mg 12/31/18 11:38 01/05/19 12:00 Morphine IV 4 mg Q2H PRN Administration Pain Ondansetron HCl 4 mg 12/31/18 11:38 01/05/19 13:42 Zofran IVP 4 mg Q6H PRN Administration Nausea/Vomiting Sodium Chloride 10 ml 12/31/18 21:00 01/05/19 09:22 Flush - Normal Saline IVF 10 ml Q12HR AMIRAH Administration - Exam Eye: PERRL, anicteric sclera Heart: RRR, no murmur, no gallops, no rubs, normal peripheral pulses Respiratory: CTAB, no wheezes, no rales, no ronchi, normal chest expansion Gastrointestinal: soft, tender to palpation (+ mild abdominal tenderness, no rebound or guarding) Extremities: no cyanosis, no clubbing, no edema Hosp A/P (1) SBO (small bowel obstruction) Code(s): K56.609 - UNSP INTESTNL OBST, UNSP TO PARTIAL VERSUS COMPLETE OBST Status: Acute (2) Chronic anticoagulation Code(s): Z79.01 - CAN CAPPER (CURRENT) USE OF ANTICOAGULANTS Status: Acute (3) Aortic thrombus Code(s): I74.10 - EMBOLISM AND THROMBOSIS OF UNSPECIFIED PARTS OF AORTA Status : Acute (4) HTN (hypertension) Code(s): I10 - ESSENTIAL (PRIMARY) HYPERTENSION Status: Chronic - Plan * Small bowel obstruction- this is felt to be due to abdominal thrombosis. 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 Nick- she had studies performed when she left the hospital on her previous admission. These were negative, but she was receiving anticoagulation at the time. She will likely be discharged on coumadin * HTN- blood pressure is just slightly elevated- will continue the current regimen *
[2019-01-05] MEDS ORDERED: MD-Gastroview 120 ML BOT ONE (16:38)
--- NOTE | 2019-01-05 17:04 | PRG ---
DATE OF SERVICE: 01/05/2019 SUBJECTIVE: Ms. Mckeon is postoperative day #1 from a laparoscopic retroperitoneal duodenojejunostomy. This was done in treatment of a duodenal obstruction in the third portion (approximately where it was crossed by the SMA). She has no significant complaints today. This morning, she had an upper GI contrast study that showed quick passage of the contrast through the stomach and duodenum into the jejunum through the bypass. Her nasogastric tube was removed, and she was started on clear liquids, which she has tolerated uneventfully. She notes minimal pain. She is not requiring extra narcotics. Her hemoglobin this morning was noted to be 9.1 (down from 11.1 preoperatively). This was surprising that she had very little intraoperative blood loss. Repeat hemoglobin level this afternoon, however, reveals a level of 10.2. PHYSICAL EXAMINATION: VITAL SIGNS: Temperature 97.9, pulse 66, and blood pressure 137/86. GENERAL: She is a well-developed, well-nourished, pleasant white female. She is resting comfortably in bed. HEAD, EYES, EARS, NOSE, THROAT: Unremarkable. NECK: Supple. LUNGS: Clear to auscultation. CARDIAC: Regular rate and rhythm. ABDOMEN: Soft, nontender, and nondistended. Laparoscopic incisions are nicely healed. She has discomfort at the site where her laparoscopic band port was removed. EXTREMITIES: Unremarkable. LABORATORY DATA: As mentioned, her hemoglobin level this afternoon is 10.2. Chemistry profile reveals normal electrolytes. Her AST and ALT are slightly elevated. Her albumin is a little bit low at 3.1. ASSESSMENT: She appears to be doing very well following duodenojejunostomy in treatment of duodenal obstruction. She has been started on a clear-liquid diet. PLAN: Plan will be to advance her to a full liquid diet if she tolerates. If she tolerates her full liquid diet in the morning, I would plan on discharge home at that time. I would like to see her back about 2 weeks after her surgery. She is fine to take her usual oral medications including tramadol, which she was already taking for back pain. 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 She was not taking any acid suppression medication prior to this admission. I do not think she requires it at the time of discharge either. Job ID: [id number]
--- NOTE | 2019-01-05 17:14 | PRG ---
DATE OF SERVICE: 01/05/2019 SUBJECTIVE: The patient underwent a small-bowel follow-through this morning with no evidence of extravasation of the contrast or leak noted on fluoroscopy. Her NG tube was then subsequently discontinued. She was started on a clear liquid diet, has been able to tolerate this without difficulty. She currently states that she does have some periumbilical abdominal pain, but characterizes it as a 2/10 to 3/10 severity and is currently controlled with current pain medication regimen. Otherwise, she denies any nausea, vomiting, fevers, chills, hematemesis, melena, hematochezia. She has not had a bowel movement over the last 48 hours. OBJECTIVE: VITAL SIGNS: Temperature 97.9, pulse 66, blood pressure 137/86, respiratory rate 16, saturating 96% on room air. GENERAL: The patient is lying in bed, in no acute distress. Alert and oriented x4. CARDIOVASCULAR: Regular rate and rhythm. RESPIRATORY: Clear to auscultation bilaterally. ABDOMEN: Normoactive bowel sounds, soft, nondistended, tenderness to palpation in the periumbilical and midepigastric regions. EXTREMITIES: No cyanosis, clubbing, or edema. LABORATORY DATA: Hemoglobin 10.2, hematocrit 32.6. Chemistry with a sodium of 138, potassium 3.6, chloride 105, CO2 of 27 BUN 4, creatinine 0.63, glucose 97. AST 37, ALT 59, alkaline phosphatase 107, total bilirubin 0.4, albumin 3.1. IMAGING DATA: Upper GI series was obtained on January 05, 2019, which showed normal anatomic appearance of the stomach, but with diminished peristalsis. Early contrast opacification of the first and second portion of the duodenum was seen with contrast immediately emptied into the proximal jejunum in the right mid abdomen without any evidence of extravasation or leak. 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 Ischemic stricture of the duodenum: The patient is presenting with a history of a hypercoagulable state approximately 1-month ago when she was admitted to the hospital with bowel ischemia and bowel infarction that required emergent small-bowel resection. During the course of her surgery, she was noted to have what appeared to be diminished blood flow to the duodenum, but that responded to more conservative management and maintaining normotensive pressures. However, prior to admission during this hospitalization, she exhibited increased nausea and vomiting with inability to tolerate p.o. She subsequently underwent EGD on January 02, 2019, which showed a high-grade stricture within the second portion of the duodenum that was unable to be traversed with the standard gastroscope. Biopsies of the region showed active enteritis with granulation tissue facing the lamina propria, but without any evidence of malignancy. To correct this condition, she ultimately underwent duodenojejunostomy via Dr. Castillo this on January 04, 2019, in the postoperative period has been doing well with upper GI today showing no extravasation of contrast indicative of a leak. At this time, it seems as though during her last hospitalization she may have sustained ischemic injury to the second portion/third portion of the duodenum that resulted in an ischemic stricture of the duodenum and resulted in a functional small-bowel obstruction. As to the cause of her initial bout of ischemia and thrombotic type of event is largely unknown with current workup with the Hematology Service ongoing. RECOMMENDATIONS: 1. We will continue to advance diet as tolerated with advancement to soft diet until seen in the General Surgery Service and given clearance for more solid foods. 2. Pain control per primary team. 3. If the patient is placed on narcotic medications, we would recommend a bowel regimen while as an inpatient (would recommend 1/2 capful to one capful of MiraLAX daily). 4. Agree with re-consultation of the Hematology Service for workup related to hypercoagulable state and recommendations regarding anticoagulation. We will sign off at this time. Please call with any additional questions. Job ID: [id number]
--- NOTE | 2019-01-05 18:20 | CON ---
DATE OF CONSULTATION: REASON FOR CONSULT: Mesenteric thrombosis. HISTORY OF PRESENT ILLNESS: The patient is a pleasant 53-year-old female, who was admitted in November for ischemic bowel at the splenic infarct from a thrombotic event. She underwent a hypercoagulable workup including JAK2, MPL, CALR, BCR/ABL, and PNH all of which were negative. Her protein C and protein S numbers were slightly low, but unreliable given her clot and anticoagulation. She was placed on Coumadin and was managed by her primary care physician. She presented to the emergency room on December 30 with abdominal pain and was found to have a small bowel obstruction in the duodenum. She has undergone laparoscopic duodenojejunostomy with removal of her gastric lap band. She is recovering and now taking p.o. and will be discharged in the next few days. We were asked to see the patient regarding anticoagulation. The patient states that she was having difficulty with her Coumadin being managed by her primary care. She was having blood drawn every three days with interval increases in Coumadin with INR dropping. She was on a 10 mg of Coumadin prior to this admission. She denies any complaints at this time. PAST MEDICAL HISTORY: 1. Mesenteric thrombus. 2. Hypothyroidism. 3. Hypertension. PAST SURGICAL HISTORY: 1. Lap gastric band. 2. Inguinal repair. 3. Shoulder repair. 4. Appendectomy. 5. . 6. Hysterectomy and salpingo oophorectomy. ALLERGIES: TO CIPRO, PREDNISONE, TORADOL AND AMOXICILLIN. HOME MEDICATIONS: 1. Colace daily. 2. Gabapentin t.i.d. 3. Synthroid daily. 4. Tramadol p.r.n. 5. Coumadin 10 mg daily. 6. Norvasc daily. 7. Lisinopril daily. 8. Zofran p.r.n. FAMILY HISTORY: Hypertension. SOCIAL HISTORY: . No alcohol, tobacco, or illicit drug use. REVIEW OF SYSTEMS: A 10-point review of systems is negative except for noted in HPI. PHYSICAL EXAMINATION: VITAL SIGNS: Temperature is 97.8, pulse is 66, respiratory rate is 18, BP is 135/86, and she is 97% on room air. GENERAL: Well-developed, well-nourished female, in no acute distress. CV: Regular rate and rhythm. LUNGS: Clear. ABDOMEN: Soft and nontender. Bowel sounds are positive. EXTREMITIES: No clubbing, cyanosis, or edema. SKIN: No rash. NEUROLOGIC: Nonfocal. PSYCH: She is alert, oriented, and appropriate. PERTINENT LABS AND X-RAYS: Current WBCs are 10.5, hemoglobin 10.2, hematocrit 32.6, platelet count 301,000, 63% neutrophils, and 26% lymphocytes. PT is 17, INR is 1.4, and PTT is 27.9. Sodium is 138, potassium is 3.6, chloride is 105, CO2 is 27, BUN is 4, creatinine is 0.63, calcium is 8.5, phosphorus is 3.3, bilirubin is 0.4, AST is 37, ALT is 59, alkaline phosphatase is 107, total protein is 5.2, albumin is 3.1, and globulin is 2.1. ASSESSMENT: Mesenteric thrombosis requiring lifelong anticoagulation. DISCUSSION: The patient lives an hour and a half away from our clinic. We discussed changing her anticoagulation to a factor Xa inhibitor including Xarelto or Eliquis. Discussed the risk associated with it including lack of reversal agent. She understands that she must be on anticoagulation lifelong. She will call her insurance company to find out, which one is on her formulary as she would like to take one of these medications as requires no routine monitoring. She will follow up with Dr. Nick in the clinic in a week and a half to discuss protein S and protein C tests that have been redrawn on this admission. Thank you for the consult. Job ID: [id number]
[2019-01-05] MEDS: Morphine 2 MG/ML SYRINGE SLOW IVP PRN (20:03)
[2019-01-05] MEDS: Lorazepam 2 MG/ML VIAL SLOW IVP PRN (20:03)
[2019-01-05] MEDS ORDERED: Enoxaparin Sodium 40 MG/0.4 ML SYRINGE SC SCH (21:00)
[2019-01-06] MEDS: Ketorolac Tromethamine 30 MG/ML VIAL IVP SCH ×3 (00:06→10:42)
[2019-01-06] MEDS: Morphine 2 MG/ML SYRINGE SLOW IVP PRN ×3 (00:42→07:36)
[2019-01-06] MEDS: Liothyronine Sodium 5 MCG TAB PO SCH ×2 (05:40→14:58)
[2019-01-06 07:37] VITALS: TEMP 98.2
[2019-01-06] MEDS ORDERED: Rivaroxaban 15 MG TAB PO SCH (09:00)
[2019-01-06] MEDS ORDERED: HYDROcodone/Acetaminophen 7.5/325 mg Tablet PO PRN (09:29)
--- NOTE | 2019-01-06 10:09 | EKG ---
Test Reason : Blood Pressure : / mmHG Vent. Rate : 089 BPM Atrial Rate : 089 BPM P-R Int : 170 ms QRS Dur : 094 ms QT Int : 362 ms P-R-T Axes : 064 050 075 degrees QTc Int : 440 ms Normal sinus rhythm Possible Left atrial enlargement Borderline ECG Confirmed by JACQUES CARCAMO, KATHERINE ([id number]), market editor MARILYN SKAGGS ([id number] on 01/06/2019 10:08:43 AM Referred By: Confirmed By:KATHERINE HANNA MD
[2019-01-06] MEDS: Ondansetron PF 4 MG/2 ML Vial IVP PRN (10:42)
[2019-01-06] MEDS: HYDROcodone/Acetaminophen 7.5/325 mg Tablet PO PRN ×2 (10:43→15:33)
--- NOTE | 2019-01-06 10:58 | PRG ---
DATE OF SERVICE: 01/06/2019 SUBJECTIVE: Ms. Mckeon is doing well. She has not started her full liquid diet yet today, but she has no complaints. No nausea. No vomiting. She is ambulatory. Her pain is controlled. She is afebrile. Vital signs are stable. Her wounds are healing well. ASSESSMENT: Postop day 2, jejunoduodenostomy. PLAN: If tolerates full liquids, home today. Follow up with Dr. Castillo in a few weeks. Job ID: [id number]
--- NOTE | 2019-01-06 13:00 | PDOC.HOSPP ---
- Subjective Encounter Date: 01/06/19 Encounter Time: 12:58 Subjective: Ms. Mckeon was seen today in follow-up of Small bowel obstruction. She is feeling better. She has tolerated a full liquid diet. - Objective Vital Signs & Weight: Vital Signs (12 hours) Temp Pulse Resp BP Pulse Ox 01/06/19 12:00 96 01/06/19 11:10 98.2 F 71 18 137/85 96 01/06/19 08:00 94 L 01/06/19 07:34 98.2 F 56 L 16 134/85 94 L 01/06/19 03:45 97.7 F 58 L 16 123/81 94 L Weight Admit Weight 184 lb 6.4 oz Weight 184 lb 6.4 oz I&O: 01/05/19 01/06/19 01/07/19 06:59 06:59 06:59 Intake Total 2555 3560 Output Total 175 200 Balance 2380 3360 Result Diagrams: 01/05/19 14:31 01/05/19 05:32 ROS - Medication Medications: Active Medications Generic Name Dose Route Start Last Admin Trade Name Freq PRN Reason Stop Dose Admin Hydrocodone Bitart/Acetaminophen 2 tab 01/06/19 09:29 01/06/19 10:43 [place] 7.5/325 PO 2 tab Q6H PRN Administration Moderate Pain (4-6) Ketorolac Tromethamine 30 mg 01/04/19 12:00 01/06/19 10:42 Toradol IVP 01/09/19 12:01 30 mg Q6HR AMIRAH Administration Liothyronine Sodium 5 mcg 01/06/19 06:00 01/06/19 05:40 Cytomel PO 5 mcg 0600,1400 AMIRAH Administration Lorazepam 0.5 mg 01/01/19 15:14 01/05/19 20:03 Ativan SLOW IVP 0.5 mg Q6H PRN Administration Anxiety/Agitation Morphine Sulfate 4 mg 12/31/18 11:38 01/05/19 16:46 Morphine IV 4 mg Q2H PRN Administration Pain Morphine Sulfate 2 mg 01/04/19 11:58 01/06/19 07:36 Morphine SLOW IVP 2 mg Q2H PRN Administration Pain Ondansetron HCl 4 mg 12/31/18 11:38 01/06/19 10:42 Zofran IVP 4 mg Q6H PRN Administration Nausea/Vomiting Pantoprazole Sodium 40 mg 01/06/19 09:00 01/06/19 07:36 Protonix PO 40 mg DAILY AMIRAH Administration Rivaroxaban 15 mg 01/06/19 09:00 01/06/19 07:36 Xarelto PO 15 mg BID AMIRAH Administration Sodium Chloride 10 ml 12/31/18 21:00 01/06/19 07:36 Flush - Normal Saline IVF Not Given Q12HR AMIRAH - Exam Eye: PERRL, anicteric sclera Heart: RRR, no murmur, no gallops, no rubs, normal peripheral pulses Respiratory: CTAB, no wheezes, no rales, no ronchi, normal chest expansion Gastrointestinal: soft, non-tender, non-distended, normal bowel sounds Hosp A/P (1) SBO (small bowel obstruction) Code(s): K56.609 - UNSP INTESTNL OBST, UNSP TO PARTIAL VERSUS COMPLETE OBST Status: Acute (2) Chronic anticoagulation Code(s): Z79.01 - FIELD LOGISTICS COORDINATOR (CURRENT) USE OF ANTICOAGULANTS Status: Acute (3) Aortic thrombus Code(s): I74.10 - EMBOLISM AND THROMBOSIS OF UNSPECIFIED PARTS OF AORTA Status : Acute (4) HTN (hypertension) Code(s): I10 - ESSENTIAL (PRIMARY) HYPERTENSION Status: Chronic - Plan * Small bowel obstruction- Improved * Hematology and GI input appreciated * She is s/p surgical correction of this, and take down of the Gastric lap band * Discussed with Dr. Faye- she is stable for discharge home
[2019-01-06 15:32] VITALS: BP 135/86
--- NOTE | 2019-01-08 11:16 | DIS ---
DATE OF ADMISSION: 12/30/2018 DATE OF DISCHARGE: 01/06/2019 PRIMARY CARE PHYSICIAN: Dr. Per Pandya. DISCHARGE DISPOSITION: Home. PRIMARY DISCHARGE DIAGNOSES: 1. Small-bowel obstruction. 2. Duodenal stricture. 3. Hypercoagulable state, on chronic anticoagulation. 4. Hypertension. 5. Hypothyroidism. 6. Chronic back pain. DISCHARGE MEDICATIONS: Include; 1. Tramadol 50 mg q.6 as needed. 2. Xarelto 15 mg twice a day for 3 weeks, followed by 20 mg daily. 3. Zofran 4 mg q.8 hours as needed. 4. Lorazepam 0.5 mg q.6. 5. Lisinopril 10 mg daily. 6. [place] 5/325 q.6 as needed for pain. 7. Norvasc 10 mg for systolic blood pressure greater than 150 or diastolic greater than 100. 8. Liothyronine 5 mcg p.o. daily. 9. Synthroid 100 mcg daily. 10. Gabapentin 300 mg t.i.d. 11. Colace 200 mg daily. 12. Align 4 mg daily. CODE STATUS: Full code. ALLERGIES: TO ADHESIVE TAPE, AMOXICILLIN, CIPROFLOXACIN, CLAVULANIC ACID, AND PREDNISONE. PROCEDURES DONE DURING THE ADMISSION: The patient had an enteroscopy with biopsy showing a small-bowel obstruction and an ulcerated stricture in the third portion of the duodenum with significant luminal narrowing with an opening of 3 mm, which was biopsied. There was some patchy erythema in the cardia as well as the proximal stomach, which was not biopsied and some mild erosive gastritis. The patient also had a laparoscopic duodenal jejunostomy with removal of the adjustable gastric lap band and port. The patient had an upper GI series showing a patent duodenal jejunostomy without evidence of complications. HOSPITAL COURSE: Ms. Mckeon is a pleasant 53-year-old female, who was recently admitted to our hospital after she developed an acute episode of a thrombotic event where she had a sudden clot formation in the distal aorta as well as to the mesenteric arteries. She was treated and released and she began developing problems with abdominal pain and nausea and vomiting. This is what brought her into the hospital on this occasion. She was found to have a small-bowel obstruction by CT scan. She was admitted to the Surgery Service and she underwent enteroscopy. It was found that she had a stricture in the third portion of the duodenum. It is felt that this stricture was a result of the ischemic incident that had happened on her prior admission. She underwent bypass of the stricture with duodenal jejunostomy. Also during the admission, the patient had takedown of the gastric lap band. She tolerated these procedures well. During her hospital stay, she was seen by Hematology, who recommended that she be taken off Coumadin, which she had been placed on at discharge from her prior admission and instead be placed on Xarelto. This was primarily due to ease of administration and convenience as she was having difficulty getting to and from the Coumadin Clinic. She was instructed on its use and she was also instructed on the risks and benefits of this medication as well. The patient also had somewhat labile high blood pressure on her previous admission. However, on this day, her blood pressure remained relatively stable off medications. Therefore, she will be started back on her lisinopril only close to her original dose and the amlodipine will only be re-instituted if her blood pressure begins to rise. She was instructed to check her blood pressure daily and given instructions on when to restart amlodipine if needed. She is also to follow up with Dr. Nick for the antithrombin III as well as protein C and S assays which were done during her hospital stay. Job ID: [id number]
[2019-01-08 14:56] LABS: Protein C Activity 124 % (78-152)
== END 2019-01-06 16:25 | disposition home or self-care (01) | DRG 330 ==
LOC: ERS 19:11 → SURG B 21:12
PROVIDERS: ADMIT Hospitalist; ATTEND Hospitalist
PROC: 0DB98ZX Excision of Duodenum, Via Natural or Artificial Opening Endoscopic, Diagnostic (ICD-10-PCS; 2019-01-02)
PROC: 0DB68ZX Excision of Stomach, Via Natural or Artificial Opening Endoscopic, Diagnostic (ICD-10-PCS; 2019-01-02)
PROC: 0D194ZA Bypass Duodenum to Jejunum, Percutaneous Endoscopic Approach (ICD-10-PCS; principal; 2019-01-04)
PROC: 0DP64CZ Removal of Extraluminal Device from Stomach, Percutaneous Endoscopic Approach (ICD-10-PCS; 2019-01-04)
DX: K55.029 Acute infarction of small intestine, extent unspecified (principal); K31.5 Obstruction of duodenum; D68.59 Other primary thrombophilia; I74.10 Embolism and thrombosis of unspecified parts of aorta; K55.9 Vascular disorder of intestine, unspecified; I10 Essential (primary) hypertension; E03.9 Hypothyroidism, unspecified; K29.00 Acute gastritis without bleeding; E78.5 Hyperlipidemia, unspecified; G89.29 Other chronic pain; E87.6 Hypokalemia; K21.9 Gastro-esophageal reflux disease without esophagitis; D72.829 Elevated white blood cell count, unspecified; Z88.1 Allergy status to other antibiotic agents; Z88.8 Allergy status to other drugs, medicaments and biological substances; Z98.84 Bariatric surgery status; Z90.710 Acquired absence of both cervix and uterus; Z90.49 Acquired absence of other specified parts of digestive tract; Z86.718 Personal history of other venous thrombosis and embolism; Z79.01 Long term (current) use of anticoagulants
CPT/HCPCS: 36415; 74018; 74022; 74177; 74241; 74247; 80048; 80053; 80076; 80500; 82550; 83605; 83690; 83735; 83880; 84100; 84484; 85025; 85300; 85303; 85305; 85610; 85730; 88305; 93005; 96361; 96365; 96375; C9113; J0131; J0690; J0694; J1100; J1200; J1650; J1885; J2001; J2060; J2270; J2405; J2550; J2704; J3010; J3490; Q9963; Q9967

== ENCOUNTER 2019-05-04 09:37 | Outpatient (CLI) | payer OTHER ==
--- NOTE | 2019-05-04 11:38 | RAD ---
UPPER GI: HISTORY: Previous surgery for duodenal obstruction. COMPARISON: 01/05/2019 and 12/31/2018. FINDINGS: Patient was administered thin barium and Gastrografin. Contrast opacifies a grossly normal esophagus and stomach. Contrast opacifies the duodenum, first and second portion. Contrast then appears to opacify a segment of jejunum, at the level the second portion of the duodenum. Additionally, contrast continues to opacify the remainder of the duodenum and eventually opacifies additional proximal loops of jejunum. There does not appear to be any definite outlet obstruction. IMPRESSION: Contrast opacifies the stomach and first/second portion of the duodenum. There does appear to be an a nastomosis of the second portion of the duodenum and jejunum which opacifies and passes contrast before contrast passes through the [place] distal duodenum and into the proximal jejunal loops. Nevert heless, there does not appear to be any significant associated obstruction at the level of anastomosis or along the [place] proximal small bowel outflow. Transcribed Date/Time: 05/04/2019 11:54 AM
== END 2019-05-04 09:38 | disposition home or self-care (01) ==
LOC: RAD 09:37
PROVIDERS: ATTEND Specialist
DX: K31.5 Obstruction of duodenum (principal)
CPT/HCPCS: 74247

== ENCOUNTER 2020-03-06 13:51 | Inpatient (IN) | payer OTHER ==
[2020-03-06] MEDS ORDERED: Iopamidol 370 76% 50 ML VIAL FS ONE (14:44)
[2020-03-06] MEDS ORDERED: Iopamidol-370 76% 500 ML 1 ML ONE (14:44)
[2020-03-06 15:20] LABS: Hemoglobin 13.3 g/dL (12.0-16.0); Mean Corpuscular HGB CONC 33.4 g/dL (32.0-36.0); Mean Corpuscular Hemoglobin 30.3 pg (27.0-31.0); Mean Corpuscular Volume 90.6 fL (78.0-98.0); Mean Platelet Volume 9.4 fL (7.4-10.4); Platelet Count 280 thou/uL (130-400); RBC Distribution Width 12.1 % (11.5-14.5); Red Blood Cell (RBC) Count 4.38 mill/uL (4.20-5.40); White Blood Cell (WBC) Count 15.3 thou/uL (4.8-10.8)
[2020-03-06] MEDS ORDERED: Morphine 4 MG/ML VIAL ONE ×2 (15:41→17:40)
[2020-03-06] MEDS ORDERED: Ondansetron PF 4 MG/2 ML Vial ONE (15:41)
[2020-03-06 15:43] LABS: Band 2 % (5-11); Lymphocytes 9 % (21-51); MDiff Complete? YES; Monocytes 4 % (0-10); Neutrophil 85 % (42-75); Platelet Morphology Comment Appears Adequate; RBC Morphology Normal
[2020-03-06 16:09] LABS: Albumin 4.2 g/dL (3.5-5.0)
[2020-03-06 16:10] LABS: Chloride 95 mmol/L (98-107); Potassium 3.6 mmol/L (3.5-5.1); Sodium 134 mmol/L (136-145)
[2020-03-06 16:11] LABS: Calcium 9.8 mg/dL (7.8-10.44); Glucose 94 mg/dL (70-105)
[2020-03-06 16:12] LABS: Globulin 3.7 g/dL (2.4-3.5); Protein, Total 7.9 g/dL (6.0-8.3)
[2020-03-06 16:13] LABS: Anion Gap 17 mmol/L (10-20); Bilirubin, Total 0.6 mg/dL (0.2-1.2); Carbon Dioxide 26 mmol/L (22-29)
[2020-03-06 16:14] LABS: Alkaline Phosphatase 135 U/L (40-110)
[2020-03-06 16:15] LABS: Calc. Creatinine Clearance 0 mL/min (70-130); Estimated GFR-MDRD 84
[2020-03-06 16:16] LABS: BUN (Urea Nitrogen) 16 mg/dL (9.8-20.1)
[2020-03-06 16:17] LABS: ALT (SGPT) 49 U/L (8-55); AST (SGOT) 34 U/L (5-34)
[2020-03-06 16:18] LABS: Lipase 24 U/L (8-78)
[2020-03-06 17:02] LABS: Bacteria/HPF None Seen HPF (None Seen); Bilirubin Negative (Negative); Blood, Urine Negative (Negative); Clarity Clear (Clear); Glucose, Urine (Dipstick) Normal (Negative); Ketone, Urine 60 mg/dL (Negative); Leukocyte 25 Leu/uL (Negative); Nitrite Negative (Negative); Protein, Urine (Dipstick) 30 mg/dL (Neg-Trace); Specific Gravity, Urine 1.026 (1.002-1.036); Squamous Epithelial 0-3 HPF (0-3)
[2020-03-06] MEDS ORDERED: Ketorolac Tromethamine 30 MG/ML VIAL ONE (20:54)
[2020-03-06] MEDS ORDERED: HYDROcodone/Acetaminophen 10/325 mg Tablet ONE (20:54)
[2020-03-06] MEDS ORDERED: Piperacillin/Tazobactam 4.5 GM VIAL ONE (20:54)
[2020-03-06] MEDS ORDERED: Gabapentin 400 MG CAP PO SCH (21:15)
--- NOTE | 2020-03-06 21:31 | CT ---
CT ABDOMEN AND PELVIS WITH ORAL AND IV CONTRAST: 03/06/20 HISTORY: Intermittent vaginal and rectal bleeding. Abdominal pain. Rectal pain, perineal pain. COMPARISON: 12/30/18. FINDINGS: There are mild dependent changes in the lung bases. No calcified gallstones are seen. A small hiatal hernia is present. There are postop changes in the stomach. The gastric band has been removed in the interim. A small residual splenic cyst is seen compared to mass seen on the previous study. This macho ures about 3.7 cm in AP dimension. The spleen, pancreas, adrenal glands and left kidney are normal. A tiny cyst is again seen in the right kidney. No free air or lymphadenopathy is seen in the abdomen or pelvis. There is phlegmonous change in the deep pelvis/presacral space adjacent to the rectosigmoid. No loculated fluid collection seen in this region. A 1 cm right obturator lymph node is seen. There are vascular calcifications without evidence of aneurysmal dilatation of the abdominal aorta. There are degenerative changes in the spine. IMPRESSION: Phlegmonous changes versus developing abscess in the deep pelvis/perirectal region. POS: HUBERA
[2020-03-06] MEDS ORDERED: Acetaminophen 325 MG TAB PO PRN (21:45)
--- NOTE | 2020-03-06 22:05 | PDOC.HHP ---
Hospitalist HPI - History of Present Illness Pelvic pain History of Present Illness: 54-year-old patient with a history of hypertension presented to the emergency department with a complaint of pelvic pain which has been present for about 5 days. Patient reports recent intermittent vaginal and rectal bleeding. She went to see her refrigeration specialist who according to her to do pelvic exams and removed a long suture. Patient had a rectocele repair done previously. She is also status post hysterectomy was not sure what the suture was related to. She stated she had constant pain after suture was removed but the vaginal bleeding rectal bleeding has ceased. CT abdomen and pelvis done in the emergency depar tment revealed pelvic/perirectal phlegmon or developing abscess. Patient denies any fever or nausea or vomiting. General surgery and refrigeration specialist were contacted who recommended admission to the hospitalist service for IV antibiotic treatment and monitoring. Hospitalist ROS - Review of Systems Other: Except as documented, all other systems reviewed and negative. - Medication Medications: Medication Instructions Recorded Confirmed Type Bifidobacterium Infantis [Align] 4 mg PO DAILY 12/30/18 03/07/20 History Levothyroxine Sodium [Synthroid] 100 mcg PO DAILY 12/31/18 03/07/20 History Aspirin [Adult Low Dose Aspirin EC] 81 mg PO DAILY 03/07/20 03/07/20 History Gabapentin [Neurontin] 800 mg PO BID 03/07/20 03/07/20 History HYDROcodone/Acetaminophen [[place] 1 tab PO Q8HR 03/07/20 03/07/20 History 7.5-325 Tablet] Hydrochlorothiazide 25 mg PO DAILY 03/07/20 03/07/20 History Lisinopril 40 mg PO DAILY 03/07/20 03/07/20 History Pantoprazole [Protonix] 40 mg PO DAILY 03/07/20 03/07/20 History tiZANidine HCl [Tizanidine HCl] 4 mg PO HS 03/07/20 03/07/20 History Hospitalist History - Past Medical History Other Medical History: Hypertension, history of DVT. - Past Surgical History Other Surgical History: Rectocele repair. SMA repair. Gstric Lap band surgery, hernia repair, left shoulder surgery, appendectomy, section, hysterectomy. - Family History Family History: reports: hypertension (Mother) - Social History Smoking Status: Never smoker Alcohol: reports: None Drugs: reports: none Living Situation: With Family - Exam General Appearance: NAD, awake alert Eye: PERRL, anicteric sclera ENT: normocephalic atraumatic, no oropharyngeal lesions, moist mucosa Neck: supple, symmetric, no JVD Heart: RRR, no murmur, no gallops, normal peripheral pulses Respiratory: CTAB, no wheezes, no rales, no ronchi Gastrointestinal: soft, non-tender, non-distended, normal bowel sounds Extremities: no cyanosis, no edema Skin: normal turgor, no rashes Neurological: cranial nerve grossly intact, no weakness, no focal deficits Psychiatric: normal affect, normal behavior, A&O x 3 Hospitalist Results - Labs Result Diagrams: 03/06/20 15:04 03/06/20 15:04 Lab results: WBC 15.3 thou/uL (4.8-10.8) H 03/06/20 15:04 Hgb 13.3 g/dL (12.0-16.0) 03/06/20 15:04 Hct 39.7 % (36.0-47.0) 03/06/20 15:04 MCV 90.6 fL (78.0-98.0) 03/06/20 15:04 Plt Count 280 thou/uL (130-400) 03/06/20 15:04 Band Neuts % (Manual) 2 % (5-11) L 03/06/20 15:04 Sodium 134 mmol/L (136-145) L 03/06/20 15:04 Potassium 3.6 mmol/L (3.5-5.1) 03/06/20 15:04 Chloride 95 mmol/L (98-107) L 03/06/20 15:04 Carbon Dioxide 26 mmol/L (22-29) 03/06/20 15:04 BUN 16 mg/dL (9.8-20.1) 03/06/20 15:04 Creatinine 0.72 mg/dL (0.6-1.1) 03/06/20 15:04 Glucose 94 mg/dL (70-105) 03/06/20 15:04 Calcium 9.8 mg/dL (7.8-10.44) 03/06/20 15:04 Total Bilirubin 0.6 mg/dL (0.2-1.2) 03/06/20 15:04 AST 34 U/L (5-34) 03/06/20 15:04 ALT 49 U/L (8-55) 03/06/20 15:04 Alkaline Phosphatase 135 U/L (40-110) H 03/06/20 15:04 Serum Total Protein 7.9 g/dL (6.0-8.3) 03/06/20 15:04 Albumin 4.2 g/dL (3.5-5.0) 03/06/20 15:04 Lipase 24 U/L (8-78) 03/06/20 15:04 Urine Ketones 60 mg/dL (Negative) A 03/06/20 16:39 Urine Blood Negative (Negative) 03/06/20 16:39 Urine Nitrite Negative (Negative) 03/06/20 16:39 Ur Leukocyte Esterase 25 Ita/uL (Negative) A 03/06/20 16:39 Urine RBC 4-6 HPF (0-3) A 03/06/20 16:39 Urine WBC 4-6 HPF (0-3) A 03/06/20 16:39 Ur Squamous Epith Cells 0-3 HPF (0-3) 03/06/20 16:39 Urine Bacteria None Seen HPF (None Seen) 03/06/20 16:39 - Radiology Interpretation CT scan - abdomen Status: report reviewed by me (Phlegmonous changes versus developing abscess in the deep pelvis and perirectal region) Hospitalist H&P A/P - Problem (1) Pelvic abscess Code(s): TPI5542 - Status: Acute (2) Leukocytosis Code(s): D72.829 - ELEVATED WHITE BLOOD CELL COUNT, UNSPECIFIED Status: Acute (3) HTN (hypertension) Code(s): I10 - ESSENTIAL (PRIMARY) HYPERTENSION Status: Chronic - Plan Plan: Admit to the medical floor. Start broad-spectrum antibiotics-IV Zosyn. Pain management with IV morphine. IV Toradol as needed Consult to general surgery and obtain BLAST SETTER. Serial imaging-ultrasound versus CT scan to assess for abscess formation at which point patient may need CT-guided drainage. Continue home antihypertensives. IV hydration with normal saline.
[2020-03-07 00:21] VITALS: BMI 27.3
[2020-03-07] MEDS ORDERED: Ondansetron PF 4 MG/2 ML Vial IVP SCH (01:30)
[2020-03-07] MEDS: Piperacillin/Tazobactam 3.375 GM in Sodium Chloride 0.9% 100 ML IVPB SCH ×4 (04:13→21:00)
[2020-03-07 06:15] LABS: #Basophils 0.1 thou/uL (0.0-0.2); #Eosinphils 0.2 thou/uL (0.0-0.7); #Lymphocytes 1.4 thou/uL (1.20-3.40); #Monocytes 1.1 thou/uL (0.11-0.59); %Basophils 0.7 % (0.0-1.0); %Eosinophils 1.6 % (0.0-10.0); %Lymphocytes 13.3 % (21.0-51.0); %Neutrophils 74.3 % (42.0-75.0); Hemoglobin 11.7 g/dL (12.0-16.0); Mean Corpuscular HGB CONC 32.2 g/dL (32.0-36.0); Mean Corpuscular Hemoglobin 30.5 pg (27.0-31.0); Mean Corpuscular Volume 94.8 fL (78.0-98.0); Mean Platelet Volume 9.2 fL (7.4-10.4); Platelet Count 228 thou/uL (130-400); RBC Distribution Width 12.1 % (11.5-14.5); Red Blood Cell (RBC) Count 3.85 mill/uL (4.20-5.40); White Blood Cell (WBC) Count 10.7 thou/uL (4.8-10.8)
[2020-03-07 06:26] LABS: Anion Gap 15 mmol/L (10-20); BUN (Urea Nitrogen) 12 mg/dL (9.8-20.1); Calc. Creatinine Clearance 124 mL/min (70-130); Calcium 8.6 mg/dL (7.8-10.44); Carbon Dioxide 25 mmol/L (22-29); Chloride 101 mmol/L (98-107); Estimated GFR-MDRD 87; Glucose 91 mg/dL (70-105); Potassium 3.7 mmol/L (3.5-5.1); Sodium 137 mmol/L (136-145)
[2020-03-07] MEDS: Levothyroxine Sodium 100 MCG TAB PO SCH (07:14)
[2020-03-07] MEDS: HYDROcodone/Acetaminophen 7.5/325 mg Tablet PO SCH ×3 (07:14→20:57)
[2020-03-07] MEDS: Sodium Chloride 0.9% 1,000 ML IV SCH ×2 (07:36→11:45)
[2020-03-07] MEDS ORDERED: Sodium Chloride 0.9% 10 ML ONE (07:38)
[2020-03-07] MEDS: Morphine 4 MG/ML VIAL SLOW IVP PRN ×3 (07:40→22:04)
[2020-03-07] MEDS: Aspirin 81 mg Enteric Coated Tablet PO SCH (08:17)
[2020-03-07] MEDS: Hydrochlorothiazide 25 MG TAB PO SCH (08:17)
[2020-03-07] MEDS: Lisinopril 20 MG TAB PO SCH (08:17)
[2020-03-07] MEDS: Gabapentin 400 MG CAP PO SCH ×2 (08:18→20:57)
[2020-03-07] MEDS: Enoxaparin Sodium 40 MG/0.4 ML SYRINGE SC SCH (08:19)
[2020-03-07] MEDS: Saccharomyces boulardii 250 MG CAP PO SCH (08:46)
--- NOTE | 2020-03-07 11:20 | CON ---
DATE OF CONSULTATION: 03/07/2020 TIME OF SERVICE: 8:00 a.m. CONSULTING PHYSICIAN: Dr. Wren. REASON FOR CONSULTATION: Pelvic and perirectal phlegmon. HISTORY OF PRESENT ILLNESS: This is a 54-year-old female, who underwent what sounds like a total vaginal hysterectomy with BSO in April of [address] Templeton at [facility] with a concurrent rectocele repair. The patient reports that since that time she has had periodic bleeding, for which she saw Dr. Templeton, and he removed tissue on several occasions that sounds consistent with granulation tissue. Most recently, she was seen last week with removal of some granulation tissue as well as removal of a permanent suture from her previous surgery. She reports since that time she has felt pelvic pain between her vagina and rectum. She called Dr. Templeton' office, who told her to see her primary care physician, who then also refused to see her, so she came to the emergency department. There, she received a CT scan. It showed a phlegmonous change in the deep pelvis with presacral space adjacent to the rectosigmoid, which could be a developing abscess. She has had associated pain with defecation and difficulty with urination. REVIEW OF SYSTEMS: Otherwise negative for head, eyes, ears, nose, throat, cardiovascular, respiratory, GI, , neuropsych, musculoskeletal, skin, or constitutional symptoms other than mentioned above. PAST MEDICAL HISTORY: 1. Hypertension. 2. History of ischemic bowel. 3. History of deep venous thrombosis. 4. Hypothyroidism. 5. Chronic back pain. PAST SURGICAL HISTORY: 1. x1. 2. Total vaginal hysterectomy with BSO and rectocele repair. 3. Appendectomy. 4. Gastric lap band surgery. 5. Shoulder surgery. 6. SMA repair. MEDICATIONS: Reviewed per Dr. Wren's note. ALLERGIES: 1. ADHESIVE TAPE. 2. AUGMENTIN. 3. CIPRO. 4. PREDNISONE. PHYSICAL EXAMINATION: VITAL SIGNS: Blood pressure 112/58, pulse 69, respiratory rate 20, temperature 98.3, O2 saturation 95% on room air. GENERAL: Awake, alert, no acute distress. Exam otherwise deferred. IMAGING: CT scan with phlegmonous changes versus developing abscess in the deep pelvis, perirectal region. ASSESSMENT AND PLAN: A 54-year-old female, who is almost two years status post total vaginal hysterectomy, bilateral salpingo-oopherectomy, and rectocele repair. The patient is not completely sure of the details of her procedure, so getting her records from [facility] may prove to be useful. There was no mention of mesh, but if mesh was used, that could complicate the situation. Since she has no gynecologic organs, we would defer to General Surgery or Interventional Radiology for this perirectal abscess. An exam had been performed in the ER, in which they reported that the cuff was intact and there was no bleeding. However, she was very tender posteriorly. I did not repeat this exam due to the patient's discomfort as it would not change my clinical recommendation. I discussed with the patient that I would recommend IV antibiotics, and if no improvement was made, potentially having Interventional Radiology drain this area. However, again, I will defer to the primary team and General Surgery for this. She should follow up with Dr. Templeton following release from the hospital. Job ID: [id number] MTDD
[2020-03-07] MEDS: Ketorolac Tromethamine 30 MG/ML VIAL IVP PRN ×2 (11:40→17:48)
[2020-03-07 12:57] LABS: SARS-CoV-2 MS2 Positive; SARS-CoV-2 N Gene Negative; SARS-CoV-2 S Gene Negative; SARS-CoV-2 by NAA Not Detected (NotDetected); SARS-CoV-2 orf1ab Negative
--- NOTE | 2020-03-07 17:30 | PDOC.HOSPP ---
- Subjective Subjective: no acute event overnight. No fever. Leukocytosis resolved. Pain is much better - Objective Vital Signs & Weight: Vital Signs (12 hours) Temp Pulse Resp BP BP Pulse Ox 03/07/20 11:36 98.2 F 74 20 109/59 L 97 03/07/20 08:17 112/58 L 03/07/20 08:03 98.3 F 69 20 112/58 L 95 Weight Weight 190 lb 4.8 oz I&O: 03/06/20 03/07/20 03/08/20 06:59 06:59 06:59 Intake Total 520 Balance 520 Result Diagrams: 03/07/20 05:57 03/07/20 05:57 Radiology Reviewed by me: Yes EKG Reviewed by me: Yes Hospitalist ROS - Medication Medications: Active Medications Generic Name Dose Route Start Last Admin Trade Name Freq PRN Reason Stop Dose Admin Acetaminophen 650 mg 03/06/20 21:45 03/07/20 14:42 Acetaminophen 325 Mg Tab PO 650 mg Q4H PRN Administration Headache/Fever/Mild Pain (1-3) Hydrocodone Bitart/Acetaminophen 1 tab 03/07/20 06:00 03/07/20 08:19 Hydrocodone/Acetaminophen 7.5/325 Mg Tablet PO 1 tab Q8HR AMIRAH Administration Aspirin 81 mg 03/07/20 09:00 03/07/20 08:17 Aspirin 81 Mg Enteric Coated Tablet PO 81 mg DAILY AMIRAH Administration Enoxaparin Sodium 40 mg 03/07/20 09:00 03/07/20 08:19 Enoxaparin Sodium 40 Mg/0.4 Ml Syringe SC 40 mg 0900 AMIRAH Administration Gabapentin 800 mg 03/07/20 09:00 03/07/20 08:18 Gabapentin 400 Mg Cap PO 800 mg BID AMIRAH Administration Hydrochlorothiazide 25 mg 03/07/20 09:00 03/07/20 08:17 Hydrochlorothiazide 25 Mg Tab PO 25 mg DAILY AMIRAH Administration Sodium Chloride 1,000 mls @ 75 mls/hr 03/06/20 21:45 03/07/20 11:45 Normal Saline 0.9% IV 03/07/20 21:46 1,000 mls .[id number] AMIRAH Administration Piperacillin Sod/Tazobactam 100 mls @ 200 mls/hr 03/07/20 03:00 03/07/20 14:42 Sod 3.375 gm/ Sodium Chloride IVPB 100 mls 0300,0900,1500,2100 AMIRAH Administration Ketorolac Tromethamine 15 mg 03/06/20 22:11 03/07/20 11:40 Ketorolac Tromethamine 30 Mg/Ml Vial IVP 03/11/20 22:12 15 mg Q6H PRN Administration Pain Levothyroxine Sodium 100 mcg 03/07/20 06:00 03/07/20 07:14 Levothyroxine Sodium 100 Mcg Tab PO 100 mcg 0600 AMIRAH Administration Lisinopril 40 mg 03/07/20 09:00 03/07/20 08:17 Lisinopril 20 Mg Tab PO 40 mg DAILY AMIRAH Administration Morphine Sulfate 4 mg 03/06/20 22:17 03/07/20 14:43 Morphine 4 Mg/Ml Vial SLOW IVP 4 mg Q4H PRN Administration Severe Pain (7-10) Pantoprazole Sodium 40 mg 03/07/20 09:00 03/07/20 08:18 Pantoprazole 40 Mg Tab PO 40 mg DAILY AMIRAH Administration Saccharomyces Boulardii 250 mg 03/07/20 09:00 03/07/20 08:46 Saccharomyces Boulardii 250 Mg Cap PO 250 mg DAILY AMIRAH Administration - Exam General Appearance: NAD Eye: PERRL ENT: normocephalic atraumatic Neck: supple Heart: RRR, no murmur Respiratory: CTAB, no wheezes Gastrointestinal: soft, non-tender Extremities: no cyanosis Skin: normal turgor Neurological: cranial nerve grossly intact Musculoskeletal: normal tone, normal strength, no muscle wasting Psychiatric: normal affect, normal behavior, A&O x 3 Hosp A/P - Plan This is a 54 years old female, who has significant past medical history of BUFFY with BSO in April [address] Templeton at [facility] with rectocele repair, who present to ED with 5 days history of pelvic pain. Initial workup including CT abd/pel showed developing possible perirectal abscess. Perirectal Abscess --pt appears responding to IV abx as pain improved and leukocytosis resolved. --cont IV abx over the weekend, follow cultures. --rpt imaging study on Tuesday to re-eval, consider IR drainage if not improved --Appreciate ROADWAY DESIGNER input HTN, essential --BP stable cont Lisinopril/HCTZ Hypothyroidism --cont Levothyroxine GERD --cont PPI DVT ppx: Lovenox GI ppx: Patient is on PPI Code Status: Full Anticipated Dispo: Home when stable
--- NOTE | 2020-03-07 18:38 | PDOC.EVN ---
Event Note - Event Note Event Note: TECHNICAL SUPPORT INTERN Op records from [facility] obtained and reviewed. Had TVH, BSO with cystocele and rectocele repair in 04/2018. Also appears that she went back to OR afterwards for suture removal from cuff 2* to pudendal nerve paresthesia. I see no mention of any mesh placed during her original procedure.
[2020-03-07] MEDS: tiZANidine HCl 4 MG TAB PO SCH (20:57)
[2020-03-07] MEDS ORDERED: FLU VACC QS2020-21(6MOS UP)/PF 60 MCG/0.5 ML SYRINGE IM ONE (21:00)
[2020-03-07] MEDS: Senokot 8.6 MG TAB PO PRN (22:07)
[2020-03-07] MEDS: Melatonin 3 MG TAB PO PRN (22:07)
[2020-03-08] MEDS: Piperacillin/Tazobactam 3.375 GM in Sodium Chloride 0.9% 100 ML IVPB SCH ×4 (02:53→20:56)
[2020-03-08] MEDS: Levothyroxine Sodium 100 MCG TAB PO SCH (05:45)
[2020-03-08] MEDS: HYDROcodone/Acetaminophen 7.5/325 mg Tablet PO SCH ×4 (05:45→22:07)
[2020-03-08] MEDS: Gabapentin 400 MG CAP PO SCH ×2 (08:25→22:09)
[2020-03-08] MEDS: Enoxaparin Sodium 40 MG/0.4 ML SYRINGE SC SCH (08:26)
[2020-03-08] MEDS: Morphine 4 MG/ML VIAL SLOW IVP PRN ×3 (08:27→20:34)
[2020-03-08] MEDS: Saccharomyces boulardii 250 MG CAP PO SCH (08:29)
[2020-03-08] MEDS: Hydrochlorothiazide 25 MG TAB PO SCH (08:31)
[2020-03-08] MEDS: Lisinopril 20 MG TAB PO SCH (08:32)
[2020-03-08] MEDS: Aspirin 81 mg Enteric Coated Tablet PO SCH (08:32)
[2020-03-08] MEDS: Ketorolac Tromethamine 30 MG/ML VIAL IVP PRN ×2 (09:44→15:31)
--- NOTE | 2020-03-08 12:58 | PDOC.HOSPP ---
- Subjective Encounter Date: 03/08/20 Encounter Time: 12:55 Subjective: Patient is no acute distress and no concerns. She reports she feels some pain currently, but it is manageable with current pain regimen. She does not believe abscess has changed in size. She is able to ambulate to the bathroom, but pain increases upon defecation. - Objective Vital Signs & Weight: Vital Signs (12 hours) Temp Pulse Resp BP BP BP Pulse Ox 03/08/20 08:32 112/58 L 03/08/20 07:30 98.6 F 76 16 110/58 L 99 03/08/20 05:40 97.5 F L 66 16 109/59 L 96 Weight Weight 86.319 kg I&O: 03/07/20 03/08/20 03/09/20 06:59 06:59 06:59 Intake Total 520 2528 Balance 520 2528 Result Diagrams: 03/07/20 05:57 03/07/20 05:57 Radiology Reviewed by me: Yes (Araya) Hospitalist ROS - Review of Systems Constitutional: denies: fever, malaise Respiratory: denies: shortness of breath Cardiovascular: denies: chest pain Gastrointestinal: reports: nausea, vomiting, abdominal pain, other (Pain during defecation but was pelvic) Genitourinary: denies: dysuria Neurological: denies: weakness - Medication Medications: Active Medications Generic Name Dose Route Start Last Admin Trade Name Freq PRN Reason Stop Dose Admin Acetaminophen 650 mg 03/06/20 21:45 03/07/20 14:42 Acetaminophen 325 Mg Tab PO 650 mg Q4H PRN Administration Headache/Fever/Mild Pain (1-3) Hydrocodone Bitart/Acetaminophen 1 tab 03/07/20 06:00 03/08/20 05:45 Hydrocodone/Acetaminophen 7.5/325 Mg Tablet PO 1 tab Q8HR AMIRAH Administration Aspirin 81 mg 03/07/20 09:00 03/08/20 08:32 Aspirin 81 Mg Enteric Coated Tablet PO 81 mg DAILY AMIRAH Administration Enoxaparin Sodium 40 mg 03/07/20 09:00 03/08/20 08:26 Enoxaparin Sodium 40 Mg/0.4 Ml Syringe SC 40 mg 0900 AMIRAH Administration Gabapentin 800 mg 03/07/20 09:00 03/08/20 08:25 Gabapentin 400 Mg Cap PO 800 mg BID AMIRAH Administration Hydrochlorothiazide 25 mg 03/07/20 09:00 03/08/20 08:31 Hydrochlorothiazide 25 Mg Tab PO 25 mg DAILY AMIRAH Administration Piperacillin Sod/Tazobactam 100 mls @ 200 mls/hr 03/07/20 03:00 03/08/20 08:25 Sod 3.375 gm/ Sodium Chloride IVPB 100 mls 0300,0900,1500,2100 AMIRAH Administration Ketorolac Tromethamine 15 mg 03/06/20 22:11 03/08/20 09:44 Ketorolac Tromethamine 30 Mg/Ml Vial IVP 03/11/20 22:12 15 mg Q6H PRN Administration Pain Levothyroxine Sodium 100 mcg 03/07/20 06:00 03/08/20 05:45 Levothyroxine Sodium 100 Mcg Tab PO 100 mcg 0600 AMIRAH Administration Lisinopril 40 mg 03/07/20 09:00 03/08/20 08:32 Lisinopril 20 Mg Tab PO 40 mg DAILY AMIRAH Administration Melatonin 3 mg 03/07/20 21:51 03/07/20 22:07 Melatonin 3 Mg Tab PO 3 mg HS PRN Administration Insomnia Morphine Sulfate 4 mg 03/06/20 22:17 03/08/20 08:27 Morphine 4 Mg/Ml Vial SLOW IVP 4 mg Q4H PRN Administration Severe Pain (7-10) Pantoprazole Sodium 40 mg 03/07/20 09:00 03/08/20 08:33 Pantoprazole 40 Mg Tab PO 40 mg DAILY AMIRAH Administration Saccharomyces Boulardii 250 mg 03/07/20 09:00 03/08/20 08:29 Saccharomyces Boulardii 250 Mg Cap PO 250 mg DAILY AMIRAH Administration Senna 2 tab 03/07/20 21:51 03/07/20 22:07 Senokot 8.6 Mg Tab PO 2 tab HSPRN PRN Administration Constipation Sodium Chloride 10 ml 03/06/20 21:45 03/07/20 22:07 Flush - Normal Saline 10 Ml Syringe IVF 10 ml Q12HR PRN Administration Saline Flush Tizanidine HCl 4 mg 03/07/20 21:00 03/07/20 20:57 Tizanidine Hcl 4 Mg Tab PO 4 mg HS AMIRAH Administration - Exam General Appearance: NAD, awake alert Eye: anicteric sclera Heart: RRR, no murmur, no gallops, no rubs Respiratory: CTAB, no wheezes, no rales, no ronchi Gastrointestinal: soft, non-tender, non-distended, normal bowel sounds Extremities: no cyanosis Psychiatric: A&O x 3 Hosp A/P - Plan My assessment of this plan is that she is a 54 YO woman who presented 2 days ago for pelvic pain secondary to pelvic abscess. She is still currently still having pain, but it has reduced significant with pain meds. Her WBC reduced from time of admission from 15 to 10 on Zosyn, and she has had no fever in 24 hours. The plan at this time is to continue Zosyn and pain mgmt regimen without surgical intervention. Will reassess patient in the morning. If pain is manageable with medications, consider d/c with oral Abx and PRN pain medication. OBGYYuri Saucedoaulty: Above noted. States had BM yesterday but had pelvic pain with it. I discussed the case with Dr Pandya. No mesh on Op note. Able to void. Afebrile. Meds: Zosyn. Clinically in some mild discomfort but not acute Continue ABX for now. IR drainage may not be helpful as CT shows plegmon. Prefer not to open at this time as at least WBCs are improving. Follow.
--- NOTE | 2020-03-08 15:29 | PDOC.HOSPP ---
- Subjective Encounter Date: 03/08/20 Subjective: The patient complained of swelling of her left leg. Her pelvic pain is somewhat controlled. - Objective Vital Signs & Weight: Vital Signs (12 hours) Temp Pulse Resp BP BP BP Pulse Ox 03/08/20 12:00 99.1 F 62 14 107/55 L 95 03/08/20 08:32 112/58 L 03/08/20 07:30 98.6 F 76 16 110/58 L 99 03/08/20 05:40 97.5 F L 66 16 109/59 L 96 Weight Weight 190 lb 4.8 oz I&O: 03/07/20 03/08/20 03/09/20 06:59 06:59 06:59 Intake Total 520 2528 540 Balance 520 2528 540 Result Diagrams: 03/07/20 05:57 03/07/20 05:57 Hospitalist ROS - Medication Medications: Active Medications Generic Name Dose Route Start Last Admin Trade Name Freq PRN Reason Stop Dose Admin Acetaminophen 650 mg 03/06/20 21:45 03/07/20 14:42 Acetaminophen 325 Mg Tab PO 650 mg Q4H PRN Administration Headache/Fever/Mild Pain (1-3) Hydrocodone Bitart/Acetaminophen 1 tab 03/07/20 06:00 03/08/20 13:59 Hydrocodone/Acetaminophen 7.5/325 Mg Tablet PO 1 tab Q8HR AMIRAH Administration Aspirin 81 mg 03/07/20 09:00 03/08/20 08:32 Aspirin 81 Mg Enteric Coated Tablet PO 81 mg DAILY AMIRAH Administration Enoxaparin Sodium 40 mg 03/07/20 09:00 03/08/20 08:26 Enoxaparin Sodium 40 Mg/0.4 Ml Syringe SC 40 mg 0900 AMIRAH Administration Gabapentin 800 mg 03/07/20 09:00 03/08/20 08:25 Gabapentin 400 Mg Cap PO 800 mg BID AMIRAH Administration Hydrochlorothiazide 25 mg 03/07/20 09:00 03/08/20 08:31 Hydrochlorothiazide 25 Mg Tab PO 25 mg DAILY AMIRAH Administration Piperacillin Sod/Tazobactam 100 mls @ 200 mls/hr 03/07/20 03:00 03/08/20 0 8:25 Sod 3.375 gm/ Sodium Chloride IVPB 100 mls 0300,0900,1500,2100 AMIRAH Administration Ketorolac Tromethamine 15 mg 03/06/20 22:11 10/17/20 09:44 Ketorolac Tromethamine 30 Mg/Ml Vial IVP 03/11/20 22:12 15 mg Q6H PRN Administration Pain Levothyroxine Sodium 100 mcg 03/07/20 06:00 03/08/20 05:45 Levothyroxine Sodium 100 Mcg Tab PO 100 mcg 0600 AMIRAH Administration Lisinopril 40 mg 03/07/20 09:00 03/08/20 08:32 Lisinopril 20 Mg Tab PO 40 mg DAILY AMIRAH Administration Melatonin 3 mg 03/07/20 21:51 03/07/20 22:07 Melatonin 3 Mg Tab PO 3 mg HS PRN Administration Insomnia Morphine Sulfate 4 mg 03/06/20 22:17 03/08/20 13:47 Morphine 4 Mg/Ml Vial SLOW IVP 4 mg Q4H PRN Administration Severe Pain (7-10) Pantoprazole Sodium 40 mg 03/07/20 09:00 03/08/20 08:33 Pantoprazole 40 Mg Tab PO 40 mg DAILY AMIRAH Administration Saccharomyces Boulardii 250 mg 03/07/20 09:00 03/08/20 08:29 Saccharomyces Boulardii 250 Mg Cap PO 250 mg DAILY AMIRAH Administration Senna 2 tab 03/07/20 21:51 03/07/20 22:07 Senokot 8.6 Mg Tab PO 2 tab HSPRN PRN Administration Constipation Sodium Chloride 10 ml 03/06/20 21:45 03/07/20 22:07 Flush - Normal Saline 10 Ml Syringe IVF 10 ml Q12HR PRN Administration Saline Flush Tizanidine HCl 4 mg 03/07/20 21:00 03/07/20 20:57 Tizanidine Hcl 4 Mg Tab PO 4 mg HS AMIRAH Administration - Exam General Appearance: awake alert ENT: normocephalic atraumatic Neck: supple, no JVD Respiratory: normal chest expansion, no tachypnea Extremities: no cyanosis, no clubbing Extremities - other findings: Left lower extremity swelling with nonpitting edema. Hosp A/P - Plan "This is a 54 years old female, who has significant past medical history of BUFFY with BSO in [address] Templeton at [facility] with rectocele repair, who present to ED with 5 days history of pelvic pain. Initial workup including CT abd/pel showed developing possible perirectal abscess. Perirectal Abscess --pt appears responding to IV abx as pain improved and leukocytosis resolved. --cont IV abx over the weekend, follow cultures. --rpt imaging study on Tuesday to re-eval, consider IR drainage if not improved --Appreciate AUTO BODY CUSTOMIZER input HTN, essential --BP stable cont Lisinopril/HCTZ Hypothyroidism --cont Levothyroxine GERD --cont PPI DVT ppx: Lovenox GI ppx: Patient is on PPI Code Status: Full Anticipated Dispo: Home when stable" 03/08: Continue IV antibiotics. Continue to follow CBC. Repeat CT scan planned for Tuesday. Add [place] 5 every 8 hours for pain control. Ultrasound of the left lower extremity to rule out DVT.
--- NOTE | 2020-03-08 17:56 | ULT ---
Left lower extremity venous Doppler ultrasound: 03/08/2020 COMPARISON: None HISTORY: Left lower extremity swelling TECHNIQUE: Multiplanar grayscale sonographic imaging of the venous structures of the left lower extre mity obtained with color flow and spectral analysis FINDINGS: Left common femoral vein, greater saphenous vein, profunda femoral vein, femoral vein, popl iteal vein, and posterior tibial vein are patent. Normal blood flow, augmentation, and compression within the deep venous system on the left. No evidence for deep venous thrombosis. IMPRESSION: No evidence for deep venous thrombosis of the left lower extremity.
[2020-03-08] MEDS: tiZANidine HCl 4 MG TAB PO SCH (22:09)
[2020-03-08] MEDS: Melatonin 3 MG TAB PO PRN (22:09)
[2020-03-08] MEDS: Senokot 8.6 MG TAB PO PRN (22:09)
[2020-03-09] MEDS: Ketorolac Tromethamine 30 MG/ML VIAL IVP PRN ×2 (01:01→10:46)
[2020-03-09] MEDS: Piperacillin/Tazobactam 3.375 GM in Sodium Chloride 0.9% 100 ML IVPB SCH ×4 (04:12→21:46)
--- NOTE | 2020-03-09 05:40 | PDOC.BPN ---
- Brief Progress Note Encounter Date: 03/09/20 Encounter Time: 05:45 Admit 03/06/20 Meds: Arik Crawford Patient states still feels some pelvic pressure and pain with walking. Requests her hydrocodone every v6 rather than 8. States has chronic back pain O. Afebrile for over 24 hrs No active vag dsch or VB A/P: perirectal phlegmon on imaging source nuclear...had TVH with post colporhappy 2 years ago with MD removing "sticthc" from vagina. No mesh per Op note at [facility]. Do not feel drainage needed. Needs IV ABX for at least 72 hrs. May continue po flagyl and doxy for total of 14 days as outpatient and follow up with her provider.
[2020-03-09] MEDS: HYDROcodone/Acetaminophen 7.5/325 mg Tablet PO SCH ×2 (06:33→15:35)
[2020-03-09] MEDS: Levothyroxine Sodium 100 MCG TAB PO SCH (06:34)
[2020-03-09] MEDS: Morphine 4 MG/ML VIAL SLOW IVP PRN (09:07)
[2020-03-09] MEDS: Enoxaparin Sodium 40 MG/0.4 ML SYRINGE SC SCH (09:08)
[2020-03-09] MEDS: Lisinopril 20 MG TAB PO SCH (09:09)
[2020-03-09] MEDS: Gabapentin 400 MG CAP PO SCH ×2 (09:09→21:46)
[2020-03-09] MEDS: Hydrochlorothiazide 25 MG TAB PO SCH (09:09)
[2020-03-09] MEDS: Saccharomyces boulardii 250 MG CAP PO SCH (09:09)
[2020-03-09] MEDS: Aspirin 81 mg Enteric Coated Tablet PO SCH (09:09)
[2020-03-09] MEDS ORDERED: Ondansetron PF 4 MG/2 ML Vial IVP PRN (11:47)
[2020-03-09] MEDS ORDERED: diphenhydrAMINE 50 MG/ML VIAL IM PRN (11:47)
[2020-03-09] MEDS ORDERED: Naloxone HCl 0.4 mg/ml Vial IV PRN (11:47)
[2020-03-09] MEDS ORDERED: diphenhydrAMINE 50 MG/ML VIAL IVP PRN (11:47)
[2020-03-09] MEDS ORDERED: Promethazine HCl 25 MG/ML VIAL IM PRN (11:47)
[2020-03-09] MEDS ORDERED: Zolpidem Tartrate 5 MG TAB PO PRN (11:47)
[2020-03-09] MEDS ORDERED: diphenhydrAMINE 25 MG CAP PO PRN (11:47)
[2020-03-09] MEDS ORDERED: Scopolamine 1.5 mg/72 hour Patch TD SCH (12:00)
[2020-03-09] MEDS ORDERED: Communication Order-Pharmacy FS SCH (12:00)
[2020-03-09] MEDS: fentaNYL Citrate/PF 2,000 MCG in Sodium Chloride 0.9% 60 ML IV PRN (13:04)
--- NOTE | 2020-03-09 13:18 | PDOC.HOSPP ---
- Subjective Encounter Date: 03/09/20 Subjective: The patient stated that her pain is now controlled. - Objective Vital Signs & Weight: Vital Signs (12 hours) Temp Pulse Resp BP BP Pulse Ox 03/09/20 09:09 112/58 L 03/09/20 08:00 97.9 F 65 18 120/59 L 95 03/09/20 04:10 97.7 F 70 16 100/62 96 Weight Weight 190 lb 4.8 oz I&O: 03/08/20 03/09/20 03/10/20 06:59 06:59 06:59 Intake Total 2527 1939 Balance 2527 1939 Result Diagrams: 03/07/20 05:57 03/07/20 05:57 Hospitalist ROS - Medication Medications: Active Medications Generic Name Dose Route Start Last Admin Trade Name Freq PRN Reason Stop Dose Admin Acetaminophen 650 mg 03/06/20 21:45 03/07/20 14:42 Acetaminophen 325 Mg Tab PO 650 mg Q4H PRN Administration Headache/Fever/Mild Pain (1-3) Aspirin 81 mg 03/07/20 09:00 03/09/20 09:09 Aspirin 81 Mg Enteric Coated Tablet PO 81 mg DAILY AMIRAH Administration Enoxaparin Sodium 40 mg 03/07/20 09:00 03/09/20 09:08 Enoxaparin Sodium 40 Mg/0.4 Ml Syringe SC 40 mg 0900 AMIRAH Administration Gabapentin 800 mg 03/07/20 09:00 03/09/20 09:09 Gabapentin 400 Mg Cap PO 800 mg BID AMIRAH Administration Hydrochlorothiazide 25 mg 03/07/20 09:00 03/09/20 09:09 Hydrochlorothiazide 25 Mg Tab PO 25 mg DAILY AMIRAH Administration Piperacillin Sod/Tazobactam 100 mls @ 200 mls/hr 03/07/20 03:00 03/09/20 09:09 Sod 3.375 gm/ Sodium Chloride IVPB 100 mls 0300,0900,1500,2100 AMIRAH Administration Levothyroxine Sodium 100 mcg 03/07/20 06:00 03/09/20 06:34 Levothyroxine Sodium 100 Mcg Tab PO 100 mcg 0600 AMIRAH Administration Lisinopril 40 mg 03/07/20 09:00 03/09/20 09:09 Lisinopril 20 Mg Tab PO 40 mg DAILY AMIRAH Administration Melatonin 3 mg 03/07/20 21:51 03/08/20 22:09 Melatonin 3 Mg Tab PO 3 mg HS PRN Administration Insomnia Pantoprazole Sodium 40 mg 03/07/20 09:00 03/09/20 09:09 Pantoprazole 40 Mg Tab PO 40 mg DAILY AMIRAH Administration Saccharomyces Boulardii 250 mg 03/07/20 09:00 03/09/20 09:09 Saccharomyces Boulardii 250 Mg Cap PO 250 mg DAILY AMIRAH Administration Senna 2 tab 03/07/20 21:51 03/08/20 22:09 Senokot 8.6 Mg Tab PO 2 tab HSPRN PRN Administration Constipation Sodium Chloride 10 ml 03/06/20 21:45 03/09/20 01:02 Flush - Normal Saline 10 Ml Syringe IVF 10 ml Q12HR PRN Administration Saline Flush Tizanidine HCl 4 mg 03/07/20 21:00 03/08/20 22:09 Tizanidine Hcl 4 Mg Tab PO 4 mg HS AMIRAH Administration - Exam General Appearance: awake alert ENT: normocephalic atraumatic Neck: supple, no JVD Respiratory: normal chest expansion, no tachypnea Extremities: no cyanosis, no clubbing Neurological: cranial nerve grossly intact, no focal deficits Hosp A/P - Plan "This is a 54 years old female, who has significant past medical history of BUFFY with BSO in [address] Templeton at [facility] with rectocele repair, who present to ED with 5 days history of pelvic pain. Initial workup including CT abd/pel showed developing possible perirectal abscess. Perirectal Abscess --pt appears responding to IV abx as pain improved and leukocytosis resolved. --cont IV abx over the weekend, follow cultures. --rpt imaging study on Tuesday to re-eval, consider IR drainage if not improved --Appreciate HYDRAULIC PRESS IN OPERATOR input HTN, essential --BP stable cont Lisinopril/HCTZ Hypothyroidism --cont Levothyroxine GERD --cont PPI DVT ppx: Lovenox GI ppx: Patient is on PPI Code Status: Full Anticipated Dispo: Home when stable" 03/08: Continue IV antibiotics. Continue to follow CBC. Repeat CT scan planned for Tuesday. Add [place] 5 every 8 hours for pain control. Ultrasound of the left lower extremity to rule out DVT. 03/09: No signs of sepsis. The patient appears to be uncomfortable and stated her pain was severe last night. We will continue IV antibiotics for the next 72 hours and then transition to oral as no drainage will be necessary according to HYDRAULIC PRESS IN OPERATOR. Consult anesthesiology for ROTARY ENGRAVER while she is in the hospital.
[2020-03-09] MEDS: Ketorolac Tromethamine 30 MG/ML VIAL IVP SCH ×2 (18:19→21:55)
[2020-03-09 18:48] LABS: Chlamydia by PCR Not Detected (NotDetected); GC by PCR Not Detected (NotDetected)
[2020-03-09] MEDS: tiZANidine HCl 4 MG TAB PO SCH (21:46)
[2020-03-09] MEDS: Melatonin 3 MG TAB PO PRN (21:59)
[2020-03-10] MEDS: Piperacillin/Tazobactam 3.375 GM in Sodium Chloride 0.9% 100 ML IVPB SCH ×4 (03:51→21:23)
[2020-03-10] MEDS: Ketorolac Tromethamine 30 MG/ML VIAL IVP SCH ×3 (05:25→17:25)
[2020-03-10 06:48] LABS: #Basophils 0.1 thou/uL (0.0-0.2); #Eosinphils 0.5 thou/uL (0.0-0.7); #Lymphocytes 1.3 thou/uL (1.20-3.40); #Monocytes 0.9 thou/uL (0.11-0.59); #Neutrophils 5.5 thou/uL (1.40-6.50); %Basophils 0.9 % (0.0-1.0); %Eosinophils 5.6 % (0.0-10.0); %Lymphocytes 16.3 % (21.0-51.0); %Monocytes 10.9 % (0.0-10.0); %Neutrophils 66.3 % (42.0-75.0); Hemoglobin 9.7 g/dL (12.0-16.0); Mean Corpuscular HGB CONC 32.5 g/dL (32.0-36.0); Mean Corpuscular Hemoglobin 30.4 pg (27.0-31.0); Mean Corpuscular Volume 93.6 fL (78.0-98.0); Mean Platelet Volume 8.4 fL (7.4-10.4); Platelet Count 280 thou/uL (130-400); RBC Distribution Width 12.2 % (11.5-14.5); Red Blood Cell (RBC) Count 3.17 mill/uL (4.20-5.40); White Blood Cell (WBC) Count 8.2 thou/uL (4.8-10.8)
[2020-03-10 07:12] LABS: Anion Gap 12 mmol/L (10-20); BUN (Urea Nitrogen) 10 mg/dL (9.8-20.1); Calc. Creatinine Clearance 129 mL/min (70-130); Calcium 8.4 mg/dL (7.8-10.44); Carbon Dioxide 28 mmol/L (22-29); Chloride 102 mmol/L (98-107); Estimated GFR-MDRD Greater than 90; Glucose 96 mg/dL (70-105); Potassium 3.6 mmol/L (3.5-5.1); Sodium 138 mmol/L (136-145)
[2020-03-10] MEDS: Aspirin 81 mg Enteric Coated Tablet PO SCH (09:37)
[2020-03-10] MEDS: Enoxaparin Sodium 40 MG/0.4 ML SYRINGE SC SCH (09:37)
[2020-03-10] MEDS: Lisinopril 20 MG TAB PO SCH (09:38)
[2020-03-10] MEDS: Gabapentin 400 MG CAP PO SCH ×2 (09:39→21:25)
[2020-03-10] MEDS: Hydrochlorothiazide 25 MG TAB PO SCH (09:41)
[2020-03-10] MEDS: Saccharomyces boulardii 250 MG CAP PO SCH (10:06)
[2020-03-10] MEDS ORDERED: Iopamidol 370 76% 50 ML VIAL FS ONE (10:54)
[2020-03-10] MEDS ORDERED: Iopamidol-370 76% 500 ML 1 ML ONE (10:54)
--- NOTE | 2020-03-10 13:33 | PDOC.HOSPP ---
- Subjective Encounter Date: 03/10/20 Subjective: The patient stated that her pain has been better controlled since BULLET LUBRICATING MACHINE OPERATOR was initiated. - Objective Vital Signs & Weight: Vital Signs (12 hours) Temp Pulse Resp BP BP BP Pulse Ox 03/10/20 11:13 98.1 F 60 20 122/73 95 03/10/20 09:38 112/58 L 03/10/20 07:37 98.2 F 57 L 20 100/56 L 95 03/10/20 03:49 98.0 F 50 L 14 98/61 Weight Weight 190 lb 4.8 oz I&O: 03/09/20 03/10/20 03/11/20 06:59 06:59 06:59 Intake Total 1939 1020 Balance 1939 1020 Result Diagrams: 03/10/20 06:09 03/10/20 06:09 Hospitalist ROS - Medication Medications: Active Medications Generic Name Dose Route Start Last Admin Trade Name Freq PRN Reason Stop Dose Admin Acetaminophen 650 mg 03/06/20 21:45 03/07/20 14:42 Acetaminophen 325 Mg Tab PO 650 mg Q4H PRN Administration Headache/Fever/Mild Pain (1-3) Aspirin 81 mg 03/07/20 09:00 03/10/20 09:37 Aspirin 81 Mg Enteric Coated Tablet PO 81 mg DAILY AMIRAH Administration Enoxaparin Sodium 40 mg 03/07/20 09:00 03/10/20 09:37 Enoxaparin Sodium 40 Mg/0.4 Ml Syringe SC 40 mg 0900 AMIRAH Administration Gabapentin 800 mg 03/07/20 09:00 03/10/20 09:39 Gabapentin 400 Mg Cap PO 800 mg BID AMIRAH Administration Hydrochlorothiazide 25 mg 03/07/20 09:00 03/10/20 09:41 Hydrochlorothiazide 25 Mg Tab PO Not Given DAILY AMIRAH Piperacillin Sod/Tazobactam 100 mls @ 200 mls/hr 03/07/20 03:00 03/10/20 10:22 Sod 3.375 gm/ Sodium Chloride IVPB 100 mls 0300,0900,1500,2100 AMIRAH Administration Fentanyl Citrate 2,000 mcg/ 100 mls @ 0 mls/hr 03/09/20 11:47 03/09/20 13:04 Sodium Chloride IV 100 mls INF PRN Administration Pain As Directed Ketorolac Tromethamine 30 mg 03/09/20 18:00 03/10/20 12:46 Ketorolac Tromethamine 30 Mg/Ml Vial IVP 03/14/20 18:01 Not Given Q6HR AMIRAH Levothyroxine Sodium 100 mcg 03/07/20 06:00 03/09/20 06:34 Levothyroxine Sodium 100 Mcg Tab PO 100 mcg 0600 AMIRAH Administration Lisinopril 40 mg 03/07/20 09:00 03/10/20 09:38 Lisinopril 20 Mg Tab PO 40 mg DAILY AMIRAH Administration Melatonin 3 mg 03/07/20 21:51 03/09/20 21:59 Melatonin 3 Mg Tab PO 3 mg HS PRN Administration Insomnia Ondansetron HCl 4 mg 03/09/20 11:47 03/09/20 13:02 Ondansetron Pf 4 Mg/2 Ml Vial IVP 4 mg Q6H PRN Administration Nausea/Vomiting Pantoprazole Sodium 40 mg 03/07/20 09:00 03/10/20 09:38 Pantoprazole 40 Mg Tab PO 40 mg DAILY AMIRAH Administration Saccharomyces Boulardii 250 mg 03/07/20 09:00 03/10/20 10:06 Saccharomyces Boulardii 250 Mg Cap PO Not Given DAILY AMIRAH Scopolamine 1.5 mg 03/09/20 12:00 03/09/20 13:02 Scopolamine 1.5 Mg/72 Hour Patch TD 1.5 mg Q3D AMIRAH Administration Senna 2 tab 03/07/20 21:51 03/08/20 22:09 Senokot 8.6 Mg Tab PO 2 tab HSPRN PRN Administration Constipation Sodium Chloride 10 ml 03/06/20 21:45 03/09/20 01:02 Flush - Normal Saline 10 Ml Syringe IVF 10 ml Q12HR PRN Administration Saline Flush Tizanidine HCl 4 mg 03/07/20 21:00 03/09/20 21:46 Tizanidine Hcl 4 Mg Tab PO 4 mg HS AMIRAH Administration - Exam General Appearance: awake alert ENT: normocephalic atraumatic Neck: supple, no JVD Heart: RRR Respiratory: normal chest expansion, no tachypnea Gastrointestinal: soft Neurological: cranial nerve grossly intact, no focal deficits Hosp A/P - Plan "This is a 54 years old female, who has significant past medical history of BUFFY with BSO in April [address] Templeton at [facility] with rectocele repair, who present to ED with 5 days history of pelvic pain. Initial workup including CT abd/pel showed developing possible perirectal abscess. Perirectal Abscess --pt appears responding to IV abx as pain improved and leukocytosis resolved. --cont IV abx over the weekend, follow cultures. --rpt imaging study on Tuesday to re-eval, consider IR drainage if not improved --Appreciate SAFETY COORDINATOR input HTN, essential --BP stable cont Lisinopril/HCTZ Hypothyroidism --cont Levothyroxine GERD --cont PPI DVT ppx: Lovenox GI ppx: Patient is on PPI Code Status: Full Anticipated Dispo: Home when stable" 03/10: The patient's pain is better controlled on BULLET LUBRICATING MACHINE OPERATOR. Check CT abdomen and pelvis with contrast. Continue IV antibiotics.
--- NOTE | 2020-03-10 13:36 | PRG ---
DATE OF SERVICE: 03/10/2020 SUBJECTIVE: The patient is a 54-year-old female, who was admitted with signs and symptoms concerning for perirectal abscess and was placed on IV Zosyn for at least the last 72 hours. Today is HD#4 I was called by the nursing staff caring for her with concerns about the cancellation of a CT scan. After reviewing the chart and discussing with the patient recommendations were made for CT scan to be performed today to evaluate for need of IR intervention or not given the increasing need for narcotics by the patient. Pt was placed on a guest relations coordinator pump today. When I discussed the case with Ms. Horton, we did review her narcotic dependency, which she has been taking for the last year or 2 for back pain. She reports that she takes two 7.5 mg hydrocodone daily. We did discuss that as a chronic narcotic user, her pain perception has been altered from baseline. The patient has remained afebrile and her elevated WC has normalized.. OBJECTIVE: VITAL SIGNS: Today, blood pressure is 122/73, temperature 98.1, pulse is 60, respiratory rate of 20, saturating 95% on room air. GENERAL: She appears to be in no acute distress. She is alert, oriented, cooperative, and pleasant to interact with. ASSESSMENT AND PLAN: The patient is a 54-year-old female with signs concerning for perirectal abscess based on CT scan. She has narcotic dependency for chronic back pain that she takes daily. Today, her Primary Team has placed her on a TIEING MACHINE OPERATOR pump for pain control. I did communicate with the Primary Team my concerns that she is having increased pain medicine requirements, and given that alone, they would warrant getting a CT scan to look for other objective signs of worsening disease as we do not see any currently other than her symptomatic reports of pain. So to my understanding, plan at this time is a CT scan repeat from her time of admission, at which time we can decide whether she is showing signs of progressive disease that may require IR intervention showing signs of stable disease that may be able to be transitioned to oral antibiotics or signs of improvement, for which she could also be transitioned to oral antibiotics as previously recommended. Job ID: [id number] MTDD
--- NOTE | 2020-03-10 15:00 | CT ---
EXAM: CT ABDOMEN AND PELVIS HISTORY: Perirectal abscess COMPARISON: 03/06/2020 Procedure: Multiple contiguous axial images were obtained and a CT of the abdomen and pelvis with IV contrast. C oronal reformats were performed. FINDINGS: Lower Chest: Interval development of opacification in the right lower lobe may represent subsegmental atelectasis. Superimposed aspiration or pneumonia cannot be excluded. Additional opacities in the left lung base may represent developing bony or aspiration Vessels: Normal caliber aorta. No periaortic fat stranding. Heart: Normal heart size Abdomen: Portal vein:Patent Gallbladder: Small amount of pericholecystic fluid. HIDA scan if clinically warranted. Liver: Heterogeneous hypoattenuation suggesting areas of fatty infiltration and fatty sparing. Flash fill hemangioma in the right hepatic lobe is identified. Pancreas: within normal limits. Spleen: Stable lobulation of the splenic margin. Stable 3.8 x 3.0 cm echodense along the lateral stacey in of the spleen. Adrenals: within normal limits. Kidneys: Symmetric enhancement. No obstructive uropathy. Peritoneum: No ascites or free air, no fluid collection. Bowel: No evidence of bowel obstruction. Ileocecal junction is unremarkable. Appendix is not apprecia marilyn. No secondary signs of appendicitis.. Scattered fecal material in a nondistended, nondilated colon. Mesentery and Retroperitoneum: No enlarged mesenteric or retroperitoneal lymph nodes. Abdominal Wall: within normal limits. Pelvis: Reproductive Organs: Surgically absent Pelvis: No mass, lymphadenopathy or free air. Trace amount of free fluid in the right hemipelvis. Per sistent stranding of the right perirectal fat suggesting phlegmonous change. No evidence of a developed perirectal abscess. Bladder: within normal limits. Bones: within normal limits. IMPRESSION: 1. Interval development of opacities in lung bases which may represent aspiration or pneumonia 2. Persistent phlegmonous change in the right perirectal region. Well-formed abscess is not appreciat ed at this time.
[2020-03-10] MEDS: fentaNYL Citrate/PF 2,000 MCG in Sodium Chloride 0.9% 60 ML IV PRN (21:19)
[2020-03-10] MEDS: tiZANidine HCl 4 MG TAB PO SCH (21:26)
[2020-03-10] MEDS: Melatonin 3 MG TAB PO PRN (21:27)
[2020-03-11] MEDS: Ketorolac Tromethamine 30 MG/ML VIAL IVP SCH ×3 (00:36→12:21)
[2020-03-11] MEDS: Piperacillin/Tazobactam 3.375 GM in Sodium Chloride 0.9% 100 ML IVPB SCH ×2 (04:32→08:59)
[2020-03-11] MEDS: Levothyroxine Sodium 100 MCG TAB PO SCH (05:43)
[2020-03-11 06:49] LABS: #Basophils 0.1 thou/uL (0.0-0.2); #Eosinphils 0.4 thou/uL (0.0-0.7); #Lymphocytes 1.5 thou/uL (1.20-3.40); #Monocytes 0.9 thou/uL (0.11-0.59); %Basophils 0.8 % (0.0-1.0); %Eosinophils 5.6 % (0.0-10.0); %Lymphocytes 19.4 % (21.0-51.0); %Monocytes 11.2 % (0.0-10.0); %Neutrophils 62.9 % (42.0-75.0); Mean Corpuscular HGB CONC 32.4 g/dL (32.0-36.0); Mean Corpuscular Hemoglobin 29.9 pg (27.0-31.0); Mean Corpuscular Volume 92.5 fL (78.0-98.0); Mean Platelet Volume 8.3 fL (7.4-10.4); Platelet Count 313 thou/uL (130-400); RBC Distribution Width 12.2 % (11.5-14.5); Red Blood Cell (RBC) Count 3.01 mill/uL (4.20-5.40); White Blood Cell (WBC) Count 7.9 thou/uL (4.8-10.8)
[2020-03-11 07:16] LABS: Anion Gap 11 mmol/L (10-20); BUN (Urea Nitrogen) 9 mg/dL (9.8-20.1); Calc. Creatinine Clearance 127 mL/min (70-130); Calcium 8.4 mg/dL (7.8-10.44); Carbon Dioxide 29 mmol/L (22-29); Chloride 102 mmol/L (98-107); Estimated GFR-MDRD 90; Glucose 102 mg/dL (70-105); Potassium 3.5 mmol/L (3.5-5.1); Sodium 138 mmol/L (136-145)
[2020-03-11] MEDS: Lisinopril 20 MG TAB PO SCH (09:00)
[2020-03-11] MEDS: Aspirin 81 mg Enteric Coated Tablet PO SCH (09:01)
[2020-03-11] MEDS: Saccharomyces boulardii 250 MG CAP PO SCH (09:01)
[2020-03-11] MEDS: Hydrochlorothiazide 25 MG TAB PO SCH (09:01)
[2020-03-11] MEDS: Gabapentin 400 MG CAP PO SCH (09:01)
[2020-03-11] MEDS: Enoxaparin Sodium 40 MG/0.4 ML SYRINGE SC SCH (09:02)
[2020-03-11] MEDS ORDERED: HYDROcodone/Acetaminophen 7.5/325 mg Tablet PO PRN (10:36)
[2020-03-11] MEDS ORDERED: Albumin 25% 25 GM/100 ML BOT IVPB ONE (11:16)
[2020-03-11 11:38] VITALS: BP 135/79; TEMP 99.1
--- NOTE | 2020-03-12 02:06 | DIS ---
DATE OF ADMISSION: 03/06/2020 DATE OF DISCHARGE: 03/11/2020 DISCHARGE DIAGNOSES: 1. Perirectal infection. 2. Hypertension. 3. Hypothyroidism. 4. Gastroesophageal reflux disease. DISCHARGE MEDICATIONS: 1. Metronidazole 500 mg orally t.i.d. for 10 days. 2. Cefdinir 300 mg orally q.12 hours for 10 days. The rest of her home medications were unchanged. HISTORY OF PRESENT ILLNESS AND HOSPITAL COURSE: The patient is a 54-year-old female with past medical history of hypertension and GERD, who presented to the emergency department with complaints of pelvic pain for 5 days prior to presentation. The patient went to her reel cutter for evaluation due to a recent intermittent vaginal bleeding. The patient does have a history of rectocele requiring surgery and she is also status post hysterectomy. In the ER, the CT scan of the abdomen and pelvis was performed showing pelvic/perirectal phlegmon or developing abscess. The patient was admitted to the hospital and received IV antibiotics for [address] scan of the abdomen on the day prior to discharge did not show any definite abscess. Continued management with antibiotics recommended and prescribed as noted above. Outpatient followup with PCP and Gynecology was set up for followup in 1 to 2 weeks. Job ID: [id number]
--- NOTE | 2020-03-14 03:39 | PQF ---
Dear : Juanito Germain Date 03/14/20 Please exercise your independent, professional judgment in responding to the clarification form. Clinical indicators are provided on the bottom of this form for your review Can you please further clarify if Perirectal abscess is a complication of recent surgery or not? Please check appropriate box(es): [ ] Perirectal abscess is a complication of recent surgery [ ] Perirectal abscess is Not a complication of recent surgery [ ] Other diagnosis please specify [ >] Unable to determine Physician Signature: Date/Time: For continuity of documentation, please document condition throughout progress notes and discharge summary. Thank You.Physician Signature: Date/Time: For continuity of documentation, please document condition throughout progress notes and discharge summary. Thank You. To be completed by CDI/Coding staff for physician review: Present Clinical Indicators - Signs / Symptoms / Labs Results and Location in Medical Record [ x ] Pelvic pain for 5 Days H and P pg.1 [ x ] Reports recent intermittent vaginal and rectal bleeding H and P pg.1 [ x ] Pelvic abbess H and P pg.4 [ x ] Past medical hx of [facility] in April 2018 Hospitalist PN pg.4 [ x ] CT Abd/pel showed developing possible perirectal abscess Hospitalist PN pg.4 [ x ] Perirectal phlegmon Brief PN Notes pg.1 03/09 Present Risk Factors Results and Location in Medical Record [ x ] s/p hysterectomy H and P pg.1 [ x ] Perirectal abscess Hospitalist PN pg.4 [ x ] TVH with post colporrhaphy 2 years ago Brief PN Notes pg.1 03/09 Present Treatments Results and Location in Medical Record [ x ] IV Fluids [facility] [ x ] CT Abdomen/Pelvis 03/06 [ x ] IV Zosyn 4.5g MAR [ x ] IV Morphine MAR [ x ] Gyne Consult DR. Araya 03/06 CDS/Equal Opportunity Counselor Signature: Vu Urbina Phone #: ext [phone] Date 03/14/20 This is a permanent part of the Medical Record [facility]
== END 2020-03-11 12:50 | disposition home or self-care (01) | DRG 395 ==
LOC: ERS 13:51 → 3SE 21:16 → 3SW 03-08 18:30 → 3SE 03-10 07:53
PROVIDERS: ADMIT Internal Medicine; ATTEND Internal Medicine
DX: K61.1 Rectal abscess (principal); Z20.828 Contact with and (suspected) exposure to other viral communicable diseases; I10 Essential (primary) hypertension; E03.9 Hypothyroidism, unspecified; K21.9 Gastro-esophageal reflux disease without esophagitis; M54.9 Dorsalgia, unspecified; G89.29 Other chronic pain; Z90.710 Acquired absence of both cervix and uterus; Z90.49 Acquired absence of other specified parts of digestive tract; Z88.8 Allergy status to other drugs, medicaments and biological substances; Z88.5 Allergy status to narcotic agent; Z88.1 Allergy status to other antibiotic agents; Z79.890 Hormone replacement therapy; Z79.899 Other long term (current) drug therapy; Z86.718 Personal history of other venous thrombosis and embolism
CPT/HCPCS: 36415; 36600; 74177; 80048; 80053; 81003; 81015; 83690; 85025; 87480; 87491; 87510; 87591; 87635; 87660; 96365; 96375; 96376; J1650; J1885; J2270; J2405; J2543; J3010; J3490; Q9967; U0003

== ENCOUNTER 2023-04-19 17:41 | Inpatient (IN) | payer BC, OTHER, SELFPAY ==
[2023-04-19] MEDS ORDERED: hydrALAZINE 20 MG/ML VIAL SLOW IVP PRN (18:40)
[2023-04-19] MEDS ORDERED: Ipratropium/Albuterol 3 ML NEB NEB PRN (18:40)
[2023-04-19] MEDS ORDERED: TETANUS, DIPHTHERIA TOX,ADULT (TDVAX) 0.5 ML VIAL IM ONE (18:40)
[2023-04-19] MEDS: Acetaminophen 500 MG TAB PO SCH (19:58)
[2023-04-19] MEDS: traMADol HCl 50 MG TAB PO SCH (20:01)
[2023-04-19] MEDS: Famotidine/PF 20 mg/2ml Vial SLOW IVP SCH (20:02)
[2023-04-19] MEDS: Sodium Chloride 0.9% 1,000 ML IV SCH (20:46)
[2023-04-19] MEDS: Morphine 2 MG/ML VIAL SLOW IVP PRN (23:31)
[2023-04-20] MEDS: Acetaminophen 500 MG TAB PO SCH ×4 (01:11→21:04)
[2023-04-20] MEDS: traMADol HCl 50 MG TAB PO SCH ×4 (01:12→21:05)
[2023-04-20] MEDS: Sodium Chloride 0.9% 1,000 ML IV SCH ×2 (03:00→12:00)
[2023-04-20 05:22] LABS: #Basophils 0.1 thou/uL (0.0-0.2); #Eosinphils 0.1 thou/uL (0.0-0.7); #Monocytes 0.7 thou/uL (0.11-0.59); #Neutrophils 3.6 thou/uL (1.40-6.50); %Lymphocytes 26.8 % (21.0-51.0); %Monocytes 12.1 % (0.0-10.0); %Neutrophils 58.9 % (42.0-75.0); Hematocrit 40.2 % (36.0-47.0); Hemoglobin 12.3 g/dL (12.0-16.0); Mean Corpuscular HGB CONC 30.6 g/dL (32.0-36.0); Mean Corpuscular Hemoglobin 30.1 pg (27.0-31.0); Mean Corpuscular Volume 98.5 fl (78.0-98.0); Mean Platelet Volume 10.8 fL (7.4-10.4); Platelet Count 175 10x3/uL (130-400); RBC Distribution Width 14.2 % (11.5-14.5); Red Blood Cell (RBC) Count 4.08 mill/uL (4.20-5.40); White Blood Cell (WBC) Count 6.1 10x3/uL (4.8-10.8)
[2023-04-20 05:49] LABS: Anion Gap 14 mmol/L (10-20); BUN (Urea Nitrogen) 17 mg/dL (9.8-20.1); Calc. Creatinine Clearance 132 mL/min (70-130); Calcium 9.1 mg/dL (7.8-10.44); Carbon Dioxide 23 mmol/L (22-29); Chloride 105 mmol/L (98-107); Estimated GFR 103; Glucose 68 mg/dL (70-105); Potassium 3.7 mmol/L (3.5-5.1); Sodium 138 mmol/L (136-145)
[2023-04-20] MEDS: Morphine 2 MG/ML VIAL SLOW IVP PRN ×2 (09:33→17:04)
[2023-04-20] MEDS: Famotidine/PF 20 mg/2ml Vial SLOW IVP SCH ×2 (09:38→09:45)
[2023-04-20] MEDS: Ondansetron PF 4 MG/2 ML Vial IVP PRN (09:38)
[2023-04-20] MEDS ORDERED: Lisinopril 20 MG TAB PO SCH (10:00)
[2023-04-20] MEDS ORDERED: Saccharomyces boulardii 250 MG CAP PO SCH (10:00)
[2023-04-20] MEDS ORDERED: Levothyroxine Sodium 50 MCG TAB PO SCH (11:00)
[2023-04-20 16:35] VITALS: BMI 29.0
[2023-04-20] MEDS: tiZANidine HCl 4 MG TAB PO SCH (21:04)
[2023-04-20] MEDS: Atorvastatin Calcium 40 MG TAB PO SCH (21:04)
[2023-04-20] MEDS: Senokot S 8.6-50 MG TAB PO SCH (21:04)
[2023-04-20] MEDS: Lorazepam 0.5 MG TAB PO PRN (23:48)
[2023-04-21] MEDS: Acetaminophen 500 MG TAB PO SCH ×4 (02:32→19:34)
[2023-04-21] MEDS: traMADol HCl 50 MG TAB PO SCH ×4 (02:33→19:34)
[2023-04-21] MEDS: Sodium Chloride 0.9% 1,000 ML IV SCH ×3 (02:47→14:43)
[2023-04-21] MEDS: Lorazepam 0.5 MG TAB PO PRN ×2 (02:48→21:08)
[2023-04-21 04:54] LABS: Cardiac Risk 2.5 (Less than 4.5)
[2023-04-21] MEDS: Levothyroxine Sodium 50 MCG TAB PO SCH (06:01)
[2023-04-21] MEDS: Senokot S 8.6-50 MG TAB PO SCH ×2 (08:57→21:08)
[2023-04-21] MEDS: Lisinopril 20 MG TAB PO SCH (08:58)
[2023-04-21] MEDS: Saccharomyces boulardii 250 MG CAP PO SCH (09:00)
[2023-04-21] MEDS: Atorvastatin Calcium 40 MG TAB PO SCH (21:08)
[2023-04-21] MEDS: tiZANidine HCl 4 MG TAB PO SCH (21:08)
[2023-04-22] MEDS: traMADol HCl 50 MG TAB PO SCH ×4 (01:23→19:32)
[2023-04-22] MEDS: Lorazepam 0.5 MG TAB PO PRN (01:23)
[2023-04-22] MEDS: Acetaminophen 500 MG TAB PO SCH ×4 (01:25→19:31)
[2023-04-22] MEDS: Levothyroxine Sodium 50 MCG TAB PO SCH (06:28)
[2023-04-22] MEDS: Saccharomyces boulardii 250 MG CAP PO SCH (08:39)
[2023-04-22] MEDS: Polyethylene Glycol 3350 17 GM Packet PO SCH (08:39)
[2023-04-22] MEDS: Lisinopril 20 MG TAB PO SCH (08:39)
[2023-04-22] MEDS: Senokot S 8.6-50 MG TAB PO SCH ×2 (08:40→20:49)
[2023-04-22 11:55] LABS: ANA Symphony (Qualitative) Negative (Negative); ANA Symphony (Quantitative) 0.2 Ratio (< 0.7 Negative); dsDNA IgG Antibody 1.2 IU/mL (<10 Negative)
[2023-04-22] MEDS: Ondansetron PF 4 MG/2 ML Vial IVP PRN (14:49)
[2023-04-22] MEDS: Atorvastatin Calcium 40 MG TAB PO SCH (20:48)
[2023-04-22] MEDS: tiZANidine HCl 4 MG TAB PO SCH (20:49)
[2023-04-23] MEDS: traMADol HCl 50 MG TAB PO SCH ×3 (01:16→14:56)
[2023-04-23] MEDS: Acetaminophen 500 MG TAB PO SCH ×3 (01:17→14:56)
[2023-04-23] MEDS: Lorazepam 0.5 MG TAB PO PRN (01:20)
[2023-04-23] MEDS: Levothyroxine Sodium 50 MCG TAB PO SCH (05:25)
[2023-04-23] MEDS: Senokot S 8.6-50 MG TAB PO SCH (08:04)
[2023-04-23] MEDS: Lisinopril 20 MG TAB PO SCH (08:04)
[2023-04-23] MEDS: Saccharomyces boulardii 250 MG CAP PO SCH (08:04)
[2023-04-23] MEDS: Polyethylene Glycol 3350 17 GM Packet PO SCH (08:04)
[2023-04-23] MEDS: Ondansetron PF 4 MG/2 ML Vial IVP PRN (08:04)
[2023-04-23 11:57] VITALS: BP 139/82; TEMP 97.9
== END 2023-04-23 16:40 | disposition home or self-care (01) | DRG 552 ==
LOC: SDC 17:41 → IMCU/EMU 18:25 → 2NO 04-21 17:51
PROVIDERS: ADMIT Specialist; ATTEND Specialist
PROC: 2W35X3Z Immobilization of Back using Brace (ICD-10-PCS; principal; 2023-04-23)
DX: S32.021A Stable burst fracture of second lumbar vertebra, initial encounter for closed fracture (principal); S00.93XA Contusion of unspecified part of head, initial encounter; G89.29 Other chronic pain; M54.9 Dorsalgia, unspecified; G72.9 Myopathy, unspecified; M47.817 Spondylosis without myelopathy or radiculopathy, lumbosacral region; M48.061 Spinal stenosis, lumbar region without neurogenic claudication; M48.07 Spinal stenosis, lumbosacral region; M47.816 Spondylosis without myelopathy or radiculopathy, lumbar region; I10 Essential (primary) hypertension; E78.5 Hyperlipidemia, unspecified; I73.00 Raynaud's syndrome without gangrene; E03.9 Hypothyroidism, unspecified; W19.XXXA Unspecified fall, initial encounter; Z90.710 Acquired absence of both cervix and uterus; Z98.890 Other specified postprocedural states; Z79.890 Hormone replacement therapy; Z79.899 Other long term (current) drug therapy; Z88.8 Allergy status to other drugs, medicaments and biological substances; Z86.73 Personal history of transient ischemic attack (TIA), and cerebral infarction without residual deficits
CPT/HCPCS: 36415; 72146; 72148; 80048; 80061; 84443; 85025; 86038; 86225; 93005; 93010; 93306; 93880; J2272; J2405; J7050; S0028